=== PATIENT | male | born 1940 | race Caucasian/White ===

== ENCOUNTER 2016-07-18 09:50 | Inpatient (IN) | payer MEDICARE, BC ==
[2016-07-18] MEDS ORDERED: Acetaminophen 500 MG Tab PO ONE (10:41)
[2016-07-18] MEDS ORDERED: Albuterol/Ipratropium 3.0-0.5 MG/3 ML Neb Soln NEB ONE (10:41)
[2016-07-18 11:06] LABS: CHLORIDE,CL 102 mEq/L (98-106); SODIUM,NA 140 mEq/L (136-145)
[2016-07-18] MEDS ORDERED: Sodium Chloride 0.9% 10 ML Syringe FLUSH PRN (11:32)
[2016-07-18] MEDS ORDERED: Docusate Sodium 100 MG Cap PO PRN (11:32)
[2016-07-18] MEDS ORDERED: Acetaminophen 325 MG Tab PO PRN (11:32)
[2016-07-18] MEDS ORDERED: Zolpidem 5 MG Tab PO PRN (11:39)
[2016-07-18] MEDS ORDERED: LORAZEPAM PO PRN (11:39)
[2016-07-18] MEDS ORDERED: Albuterol 8 GM Inhaler INH PRN (11:39)
[2016-07-18] MEDS ORDERED: Albuterol/Ipratropium 3.0-0.5 MG/3 ML Neb Soln NEB PRN (11:39)
[2016-07-18] MEDS ORDERED: Allopurinol 100 MG Tab PO PRN (11:39)
[2016-07-18] MEDS ORDERED: Iopamidol 755 Mg/ML 100 ML Bottle IVPUSH ONE (11:44)
[2016-07-18] MEDS ORDERED: methylPREDNISolone Sodium Succinate 125 MG/2 ML SDV IVPUSH SCH (11:45)
[2016-07-18] MEDS ORDERED: Enoxaparin 30 MG/0.3 ML Syringe SUBCUT SCH (11:45)
[2016-07-18] MEDS ORDERED: Levofloxacin/Dextrose 5%-Water 500 MG in Premix Bag 1 BAG IV SCH (11:45)
--- NOTE | 2016-07-18 11:59 | EDM.PDOC ---
ED HPI GENERAL MEDICAL PROBLEM - General Chief Complaint: General Stated Complaint: FALL Time Seen by Provider: 07/18/16 10:30 Source of Information: Reports: Patient, Family () History Limitations: Reports: No limitations - History of Present Illness INITIAL COMMENTS - FREE TEXT/NARRATIVE: Maxi is a 76 yo male who presents to the ER via [facility] with concerns of a recent fall today. He was going to his vehicle when he became weak and fell down, hitting his nose on the running board. Denies any loss of consciousness. His witnessed it and states she was unable to get him up. He recently underwent a colectomy in the beginning of June and was in swing bed care at our facility for strengthening and conditioning. Admits he had been doing well up until the last few days. Was seen by Dr. Roberts in clinic secondary to bronchiolitis on the and was given 1 gram of Rocephin and 80 mg of Depo Medrol IM. Was sent home with a course of Azithromycin. He states he has been coughing a lot, more clear mucous like drainage. His states he has just been weak and getting weaker. - Related Data Allergies Allergy/AdvReac Type Severity Reaction Status Date / Time No Known Allergies Allergy Verified 07/18/16 10:42 Home Meds: Home Meds Acetaminophen/HYDROcodone [Dickinson 325-5 MG] 1 - 2 tab PO Q4H PRN 08/23/13 [ History] Allopurinol 100 mg PO DAILY PRN 08/23/13 [History] Cyanocobalamin (Vitamin B-12) [Vitamin B-12] 1,000 mcg PO BEDTIME 08/23/13 [ History] Docusate Sodium [Colace] 100 - 200 mg PO TID PRN 08/23/13 [History] Albuterol [Ventolin HFA] 2 puff INH Q4H PRN 09/22/13 [History] Gabapentin 300 mg PO BEDTIME PRN 09/22/13 [History] Vitamin A 10,000 unit PO BEDTIME 09/22/13 [History] Insulin NPH/Insulin Reg,Human [Novolin 70-30] 50 - 80 unit SUBCUT BID 09/23/14 [ History] LORazepam [Ativan] 0.5 - 1 mg PO Q6H PRN 09/23/14 [History] Amiodarone [Cordarone] 200 mg PO DAILY 09/16/15 [History] Apixaban [Eliquis] 5 mg PO BID 09/16/15 [History] Multivitamin [Daily Multiple Vitamin] 1 tab PO DAILY 09/16/15 [History] Albuterol/Ipratropium [DuoNeb 3.0-0.5 MG/3 ML] 3 ml NEB QIDRT PRN 07/05/16 [ History] Aspirin [Ecotrin] 325 mg PO DAILY 07/05/16 [History] Carvedilol 12.5 mg PO BID 07/05/16 [History] Cholecalciferol (Vitamin D3) [Vitamin D3] 2,000 unit PO DAILY 07/05/16 [History] Cinnamon Bark [Cinnamon] 500 mg PO BID 07/05/16 [History] Hydrocodone/Acetaminophen [Hydrocodon-Acetaminophen 5-325] 1 each PO Q6H PRN 02/10 [History] Lisinopril 10 mg PO DAILY 07/05/16 [History] Torsemide [Demadex] 40 mg PO DAILY 07/05/16 [History] Zolpidem Tartrate [Ambien] 10 mg PO BEDTIME PRN 07/05/16 [History] Ascorbic Acid [Vitamin C] 500 mg PO DAILY #30 tablet 07/11/16 [Rx] Magnesium Oxide 500 mg PO DAILY #90 capsule 07/11/16 [Rx] Past Medical History Cardiovascular History: Reports: Cardiomyopathy, Heart Failure, High cholesterol , Hypertension, Pacemaker Respiratory History: Reports: Sleep apnea, SOB, Other (see below) Other Respiratory History: history of bronchiolitis Genitourinary History: Reports: Other (see below) Other Genitourinary History: history of gross hematuria, nocturua Musculoskeletal History: Reports: Arthritis, Gout, Other (see below) Other Musculoskeletal History: history of bursitis, closed fracture of base of 5th metatarsal bone, trochanteric bursitis of left hip, chronic arthralgias of knees and hips Neurological History: Reports: Neuropathy, peripheral Psychiatric History: Reports: Other (see below) Other Psychiatric History: insomnia Endocrine/Metabolic History: Reports: Diabetes, type II Hematologic History: Reports: Other (see below) Other Hematologic History: vitamin D deficiency Oncologic (Cancer) History: Reports: Prostate Dermatologic History: Reports: Other (see below) Other Dermatologic History: history of fungal dermatitis - Past Surgical History GI Surgical History: Reports: Colon, Colonoscopy Male Surgical History: Reports: Other (see below) Other Male Surgeries/Procedures: prostate Musculoskeletal Surgical History: Reports: Knee replacement, Shoulder surgery, Other (see below) Other Musculoskeletal Surgeries/Procedures:: Fusion of back with rods and screws placed Social & Family History - Family History Family Medical History: Noncontributory - Tobacco Use Smoking Status *Q: Never Smoker Years of Tobacco use: 15 Used Tobacco, but Quit: Yes Month Tobacco Last Used: quit 30 yrs ago Second Hand Smoke Exposure: No - Caffeine Use Caffeine Use: Reports: None - Alcohol Use Days Per Week of Alcohol Use: 0 - Recreational Drug Use Recreational Drug Use: No - Living Situation & Occupation Living situation: Reports: Occupation: retired ED ROS GENERAL - Review of Systems Review Of Systems: See Below Constitutional: Reports: fever, chills, weakness, fatigue HEENT: Reports: Sinus problem Respiratory: Reports: shortness of breath, wheezing, cough Cardiovascular: Reports: No symptoms GI/Abdominal: Reports: No symptoms : Reports: no symptoms Skin: Reports: no symptoms Neurological: Reports: difficulty walking Psychiatric: Reports: No symptoms ED EXAM, GENERAL - Physical Exam Exam: See Below Exam Limited By: No limitations General Appearance: alert, mild distress Eye Exam: bilateral eye: normal inspection, PERRL Ears: normal external exam, normal canal, normal TMs, hearing loss Nose: normal inspection, other (dried blood from abrasion to bridge of nose. superficial. ) Throat/Mouth: Normal inspection, Normal lips, Normal oropharynx, Normal voice, No airway compromise Head: atraumatic, normocephalic Neck: normal inspection, supple Respiratory/Chest: decreased breath sounds, rhonchi, wheezing, prolonged expiration. No: accessory muscle use, retractions Cardiovascular: regular rate, rhythm, no rub. No: no edema GI/Abdominal: normal bowel sounds, soft, non tender, no organomegaly, no distention, other (obese, incision well healed. ) Extremities: pedal edema (2+ bilaterally) Neurological: alert, oriented, normal cognition, no motor/sensory deficits Psychiatric: normal affect, normal mood Skin Exam: Dry, Intact, Normal color, Increased warmth Course - Vital Signs Last Recorded V/S: Last Vital Signs Temp 101.4 F H 07/18/16 10:55 Pulse 72 07/18/16 10:10 Resp 18 02/22/17 10:10 BP 112/70 07/18/16 10:10 Pulse Ox 94 L 07/18/16 10:10 - Orders/Labs/Meds Orders: Active Orders 24 hr Category Date Time Status Patient Status [ADT] Routine ADT 07/18/16 11:32 Active Oxygen Therapy [RC] PRN Care 07/18/16 11:32 Active Peripheral IV Care [RC] . DIRECTED Care 07/18/16 11:34 Active Pulse Oximetry [RC] PRN Care 07/18/16 11:33 Active Up With Assistance [RC] ASDIRECTED Care 07/18/16 11:32 Active VTE/DVT Education [RC] PER UNIT ROUTINE Care 07/18/16 11:32 Active Vital Signs [RC] Q4H Care 07/18/16 11:32 Active Respiratory Care Assess and Treatment [CONS] Routine Cons 07/18/16 11:32 Active Consistent Carbohydrate Diet [DIET] Diet 07/18/16 Lunch Active Ang Chest [CT] Stat Exams 07/18/16 11:32 Ordered Chest 2V [CR] Stat Exams 07/18/16 10:32 Taken BASIC METABOLIC PANEL,BMP [CHEM] AM Lab 07/19/16 05:11 Ordered BASIC METABOLIC PANEL,BMP [CHEM] AM Lab 07/20/16 05:11 Ordered BASIC METABOLIC PANEL,BMP [CHEM] AM Lab 07/21/16 05:11 Ordered C-REACTIVE PROTEIN [CHEM] AM Lab 07/19/16 05:11 Ordered C-REACTIVE PROTEIN [CHEM] AM Lab 07/20/16 05:11 Ordered C-REACTIVE PROTEIN [CHEM] AM Lab 07/21/16 05:11 Ordered CBC WITH AUTO DIFF [HEME] AM Lab 07/19/16 05:11 Ordered CBC WITH AUTO DIFF [HEME] AM Lab 07/20/16 05:11 Ordered CBC WITH AUTO DIFF [HEME] AM Lab 07/21/16 05:11 Ordered CULTURE BLOOD [BC] Stat Lab 07/18/16 10:33 Ordered CULTURE BLOOD [BC] Stat Lab 07/18/16 10:33 Ordered CULTURE SPUTUM + SMEAR [RM] Stat Lab 07/18/16 10:32 Ordered FOLATE [REF] Stat Lab 07/18/16 11:32 Ordered IRON PANEL IRON/TRANSFERR/FERR [REF] Stat Lab 07/18/16 11:32 Ordered OCCULT BLOOD SCREEN [OP] Routine Lab 07/18/16 11:32 Uncollected UA W/MICROSCOPIC [URIN] Stat Lab 07/18/16 10:07 Uncollected VITAMIN B12 [CHEM] Stat Lab 07/18/16 11:32 Ordered Acetaminophen [Tylenol] Med 07/18/16 11:32 Active 650 mg PO Q4H PRN Acetaminophen/HYDROcodone [Dickinson 325-5 MG] Med 07/18/16 11:39 Active 1 - 2 tab PO Q4H PRN Albuterol [Ventolin HFA] Med 07/18/16 11:39 Active 0 gm INH Q4H PRN Albuterol/Ipratropium [DuoNeb 3.0-0.5 MG/3 ML] Med 07/18/16 11:39 Active 3 ml NEB QIDRT PRN Allopurinol [Zyloprim] Med 07/18/16 11:39 Active 100 mg PO DAILY PRN Amiodarone [Cordarone] Med 07/19/16 08:00 Active 200 mg PO DAILY Apixaban [Eliquis] Med 07/18/16 20:00 Active 5 mg PO BID Ascorbic Acid [Vitamin C] Med 07/19/16 08:00 Active 500 mg PO DAILY Aspirin [Ecotrin] Med 07/19/16 08:00 Active 325 mg PO DAILY Carvedilol [Coreg] Med 07/18/16 20:00 Active 12.5 mg PO BID Cyanocobalamin (Vitamin B12) [Vitamin B12] Med 07/18/16 20:00 Active 1,000 mcg PO BEDTIME Docusate Sodium [Colace] Med 07/18/16 11:32 Active 100 mg PO BID PRN Enoxaparin [Lovenox] Med 07/18/16 11:45 Active 30 mg SUBCUT Q24H Gabapentin [Neurontin] Med 07/18/16 11:39 Active 300 mg PO BEDTIME PRN Insulin NPH/Insulin Reg,Human [Novolin 70-30] Med 07/18/16 20:00 Active 50 - 80 unit SUBCUT BID LORazepam [Ativan] Med 07/18/16 11:39 Active 0.5 - 1 mg PO Q6H PRN Levofloxacin/Dextrose 5%-Water [Levaquin in D5W 500 MG/ Med 07/18/16 11:45 Active 100 ML] 500 mg Premix Bag 1 bag IV Q24H Lisinopril [Prinivil] Med 07/19/16 08:00 Active 10 mg PO DAILY Magnesium Oxide [Magnesium Oxide] Med 07/19/16 08:00 Active 500 mg PO DAILY Oseltamivir [Tamiflu] Med 07/18/16 20:00 Active 75 mg PO BID Sodium Chloride 0.9% [Saline Flush] Med 07/18/16 11:32 Active 10 ml FLUSH ASDIRECTED PRN Torsemide [Demadex] Med 07/19/16 08:00 Active 40 mg PO DAILY Zolpidem [Ambien] Med 07/18/16 11:39 Active 10 mg PO BEDTIME PRN methylPREDNISolone Sod Succ [Solu-MEDROL] Med 07/18/16 11:45 Active 62.5 mg IVPUSH Q24H Blood Culture x2 Reflex Set [OM.PC] Stat Oth 07/18/16 10:32 Ordered Peripheral IV Insertion Adult [OM.PC] Routine Oth 07/18/16 11:32 Ordered Resuscitation Status Routine Resus Stat 07/18/16 11:32 Ordered Medication Orders Acetaminophen (Tylenol) 650 mg PO Q4H PRN PRN Reason: Pain (Mild 1-3)/fever Acetaminophen/Hydrocodone Bitart (Dickinson 325-5 Mg) 1 - 2 tab PO Q4H PRN PRN Reason: Pain Albuterol (Ventolin Hfa) 0 gm INH Q4H PRN PRN Reason: Dyspnea Albuterol/Ipratropium (Duoneb 3.0-0.5 Mg/3 Ml) 3 ml NEB QIDRT PRN PRN Reason: Shortness of Breath Allopurinol (Zyloprim) 100 mg PO DAILY PRN PRN Reason: Other Amiodarone HCl (Cordarone) 200 mg PO DAILY [facility] Ascorbic Acid (Vitamin C) 500 mg PO DAILY [facility] Aspirin (Ecotrin) 325 mg PO DAILY [facility] Carvedilol (Coreg) 12.5 mg PO BID [facility] Cyanocobalamin (Vitamin B12) 1,000 mcg PO BEDTIME TOM Docusate Sodium (Colace) 100 mg PO BID PRN PRN Reason: Constipation Enoxaparin Sodium (Lovenox) 30 mg SUBCUT Q24H TOM Gabapentin (Neurontin) 300 mg PO BEDTIME PRN PRN Reason: Nerve pain Levofloxacin/Dextrose 500 mg/ (Premix) 100 mls @ 100 mls/hr IV Q24H [facility]OM Lisinopril (Prinivil) 10 mg PO DAILY [facility] Methylprednisolone Sodium Succinate (Solu-Medrol) 62.5 mg IVPUSH Q24H [facility] Non-Formulary Medication (Apixaban [Eliquis]) 5 mg PO BID TOM Non-Formulary Medication (Insulin Nph/Insulin Reg,Human [Novolin 70-30]) 50 - 80 unit SUBCUT BID T[facility] Non-Formulary Medication (Lorazepam [Ativan]) 0.5 - 1 mg PO Q6H PRN PRN Reason: Anxiety Non-Formulary Medication (Magnesium Oxide [Magnesium Oxide]) 500 mg PO DAILY [facility] Oseltamivir Phosphate (Tamiflu) 75 mg PO BID TOM Sodium Chloride (Saline Flush) 10 ml FLUSH ASDIRECTED PRN PRN Reason: Keep Vein Open Torsemide (Demadex) 40 mg PO DAILY [facility] Zolpidem Tartrate (Ambien) 10 mg PO BEDTIME PRN PRN Reason: Insomnia Labs: Laboratory Tests 07/18/16 07/18/16 07/18/16 Range/Units 10:07 10:32 10:35 WBC 9.1 (5.0-10.0) 10^3/uL RBC 2.99 L (4.50-6.00) 10^6/uL Hgb 9.4 L (14.0-18.0) g/dL Hct 30.8 L (40.0-54.0) % MCV 103.0 H (82.0-94.0) fL MCH 31.4 (27.0-32.0) pg MCHC 30.5 L (33.0-38.0) g/dL RDW Coeff of Sheron 15.1 H (11.0-15.0) % Plt Count 178 (150-400) 10^3/uL Neut % (Auto) 86.3 H (35-85) % Lymph % (Auto) 5.6 L (10-55) % [place] % (Auto) 7.6 (0-16) % Eos % (Auto) 0.3 (0-5) % Baso % (Auto) 0.2 (0-3) % Neut # 7.87 H (1.80-7.00) 10^3/uL Lymph # 0.51 L (1.00-4.80) 10^3/uL [place] # 0.69 (0.00-0.80) 10^3/uL Eos # 0.03 (0.00-0.45) 10^3/uL Baso # 0.02 10^3/uL D-Dimer, Quantitative 1.35 H (0.00-0.50) Sodium 140 (136-145) mEq/L Potassium 4.1 (3.5-5.0) mEq/L Chloride 102 (98-106) mEq/L Carbon Dioxide 28 (21-32) mmol/L BUN 15 (7-18) mg/dL Creatinine 1.4 H (0.7-1.3) mg/dL Est Cr Clr Drug Dosing TNP Estimated GFR (MDRD) 49 L (>=60) mL/min Glucose 206 H D (75-99) mg/dL Calcium 8.3 L (8.4-10.1) mg/dL Magnesium 2.2 (1.8-2.4) mg/dL Total Bilirubin 0.5 (0.0-1.0) mg/dL AST 20 (15-37) U/L ALT 18 (12-78) U/L Alkaline Phosphatase 40 L (46-116) U/L C-Reactive Protein 9.7 H (0.2-0.8) mg/dL [id number] Pept 1263 H (0-1000) pg/nL Total Protein 6.2 L (6.4-8.2) g/dL Albumin 2.8 L (3.4-5.0) g/dL Meds: Medications Generic Name Dose Route Start Last Admin Trade Name Freq PRN Reason Stop Dose Admin Acetaminophen 650 mg 07/18/16 11:32 Tylenol PO Q4H PRN Pain (Mild 1-3)/fever Acetaminophen/Hydrocodone Bitart 1 - 2 tab 07/18/16 11:39 Dickinson 325-5 Mg PO Q4H PRN Pain Albuterol 0 gm 07/18/16 11:39 Ventolin Hfa INH Q4H PRN Dyspnea Albuterol/Ipratropium 3 ml 07/18/16 11:39 Duoneb 3.0-0.5 Mg/3 Ml NEB QIDRT PRN Shortness of Breath Allopurinol 100 mg 07/18/16 11:39 Zyloprim PO DAILY PRN Other Amiodarone HCl 200 mg 07/19/16 08:00 Cordarone PO DAILY [facility] Ascorbic Acid 500 mg 07/19/16 08:00 Vitamin C PO DAILY [facility] Aspirin 325 mg 07/19/16 08:00 Ecotrin PO DAILY [facility] Carvedilol 12.5 mg 07/18/16 20:00 Coreg PO BID [facility] Cyanocobalamin 1,000 mcg 07/18/16 20:00 Vitamin B12 PO BEDTIME [facility] Docusate Sodium 100 mg 07/18/16 11:32 Colace PO BID PRN Constipation Enoxaparin Sodium 30 mg 07/18/16 11:45 Lovenox SUBCUT Q24H [facility] Gabapentin 300 mg 07/18/16 11:39 Neurontin PO BEDTIME PRN Nerve pain Levofloxacin/Dextrose 500 mg/ 100 mls @ 100 mls/hr 07/18/16 11:45 Premix IV Q24H [facility] Lisinopril 10 mg 07/19/16 08:00 Prinivil PO DAILY [facility] Methylprednisolone Sodium Succinate 62.5 mg 07/18/16 11:45 Solu-Medrol IVPUSH Q24H [facility] Non-Formulary Medication 5 mg 07/18/16 20:00 Apixaban [Eliquis] PO BID [facility] Non-Formulary Medication 50 - 80 unit 07/18/16 20:00 Insulin Nph/Insulin Reg,Human [Novolin 70-30] SUBCUT BID [facility] Non-Formulary Medication 0.5 - 1 mg 07/18/16 11:39 Lorazepam [Ativan] PO Q6H PRN Anxiety Non-Formulary Medication 500 mg 07/19/16 08:00 Magnesium Oxide [Magnesium Oxide] PO DAILY [facility] Oseltamivir Phosphate 75 mg 07/18/16 20:00 Tamiflu PO BID [facility] Sodium Chloride 10 ml 07/18/16 11:32 Saline Flush FLUSH ASDIRECTED PRN Keep Vein Open Torsemide 40 mg 07/19/16 08:00 Demadex PO DAILY [facility] Zolpidem Tartrate 10 mg 07/18/16 11:39 Ambien PO BEDTIME PRN Insomnia Discontinued Medications Generic Name Dose Route Start Last Admin Trade Name Freq PRN Reason Stop Dose Admin Acetaminophen 1,000 mg 07/18/16 10:41 07/18/16 10:55 Tylenol Extra Strength PO 07/18/16 10:42 1,000 mg ONETIME ONE Administration Albuterol/Ipratropium 3 ml 07/18/16 10:41 07/18/16 10:58 Duoneb 3.0-0.5 Mg/3 Ml NEB 07/18/16 10:42 3 ml ONETIME ONE Administration Iopamidol 100 ml 07/18/16 11:44 Isovue-370 (76%) IVPUSH 07/18/16 11:45 ONETIME ONE Departure - Departure Time of Disposition: 11:15 Disposition: Admitted As Inpatient 67 Clinical Impression: Influenza A Anemia Qualifiers: Anemia type: unspecified type Qualified Code(s): D64.9 - Anemia, unspecified Forms: ED Department Discharge - Problem List & Annotations (1) Anemia SNOMED Code(s): 449737320 Code(s): D64.9 - ANEMIA, UNSPECIFIED Status: Acute Current Visit: Yes Qualifiers: Anemia type: unspecified type Qualified Code(s): D64.9 - Anemia, unspecified (2) Influenza A SNOMED Code(s): 896662085 Code(s): J10.1 - FLU DUE TO OTH IDENT INFLUENZA VIRUS W OTH RESP MANIFEST Status: Acute Current Visit: Yes - Problem List Review Problem List Initiated/Reviewed/Updated: Yes - My Orders Last 24 Hours: My Active Orders 07/18/16 10:07 UA W/MICROSCOPIC [URIN] Stat 07/18/16 10:32 Chest 2V [CR] Stat CULTURE SPUTUM + SMEAR [RM] Stat Blood Culture x2 Reflex Set [OM.PC] Stat 07/18/16 10:33 CULTURE BLOOD [BC] Stat CULTURE BLOOD [BC] Stat 07/18/16 11:32 Patient Status [ADT] Routine Oxygen Therapy [RC] PRN Up With Assistance [RC] ASDIRECTED VTE/DVT Education [RC] PER UNIT ROUTINE Vital Signs [RC] Q4H Respiratory Care Assess and Treatment [CONS] Routine Ang Chest [CT] Stat FOLATE [REF] Stat IRON PANEL IRON/TRANSFERR/FERR [REF] Stat OCCULT BLOOD SCREEN [OP] Routine VITAMIN B12 [CHEM] Stat Acetaminophen [Tylenol] 650 mg PO Q4H PRN Docusate Sodium [Colace] 100 mg PO BID PRN Sodium Chloride 0.9% [Saline Flush] 10 ml FLUSH ASDIRECTED PRN Peripheral IV Insertion Adult [OM.PC] Routine Resuscitation Status Routine 07/18/16 11:33 Pulse Oximetry [RC] PRN 07/18/16 11:34 Peripheral IV Care [RC] . DIRECTED 07/18/16 11:39 Acetaminophen/HYDROcodone [Dickinson 325-5 MG] 1 - 2 tab PO Q4H PRN Albuterol [Ventolin HFA] 0 gm INH Q4H PRN Albuterol/Ipratropium [DuoNeb 3.0-0.5 MG/3 ML] 3 ml NEB QIDRT PRN Allopurinol [Zyloprim] 100 mg PO DAILY PRN Gabapentin [Neurontin] 300 mg PO BEDTIME PRN LORazepam [Ativan] 0.5 - 1 mg PO Q6H PRN Zolpidem [Ambien] 10 mg PO BEDTIME PRN 07/18/16 11:45 Enoxaparin [Lovenox] 30 mg SUBCUT Q24H Levofloxacin/Dextrose 5%-Water [Levaquin in D5W 500 MG/100 ML] 500 mg Premix Bag 1 bag IV Q24H methylPREDNISolone Sod Succ [Solu-MEDROL] 62.5 mg IVPUSH Q24H 07/18/16 20:00 Apixaban [Eliquis] 5 mg PO BID Carvedilol [Coreg] 12.5 mg PO BID Cyanocobalamin (Vitamin B12) [Vitamin B12] 1,000 mcg PO BEDTIME Insulin NPH/Insulin Reg,Human [Novolin 70-30] 50 - 80 unit SUBCUT BID Oseltamivir [Tamiflu] 75 mg PO BID 07/18/16 Lunch Consistent Carbohydrate Diet [DIET] 07/19/16 05:11 BASIC METABOLIC PANEL,BMP [CHEM] AM C-REACTIVE PROTEIN [CHEM] AM CBC WITH AUTO DIFF [HEME] AM 07/19/16 08:00 Amiodarone [Cordarone] 200 mg PO DAILY Ascorbic Acid [Vitamin C] 500 mg PO DAILY Aspirin [Ecotrin] 325 mg PO DAILY Lisinopril [Prinivil] 10 mg PO DAILY Magnesium Oxide [Magnesium Oxide] 500 mg PO DAILY Torsemide [Demadex] 40 mg PO DAILY 07/20/16 05:11 BASIC METABOLIC PANEL,BMP [CHEM] AM C-REACTIVE PROTEIN [CHEM] AM CBC WITH AUTO DIFF [HEME] AM 07/21/16 05:11 BASIC METABOLIC PANEL,BMP [CHEM] AM C-REACTIVE PROTEIN [CHEM] AM CBC WITH AUTO DIFF [HEME] AM - Assessment/Plan Admission H&P: Please use this note as an admission H&P Last 24 Hours: My Active Orders 07/18/16 10:07 UA W/MICROSCOPIC [URIN] Stat 07/18/16 10:32 Chest 2V [CR] Stat CULTURE SPUTUM + SMEAR [RM] Stat Blood Culture x2 Reflex Set [OM.PC] Stat 07/18/16 10:33 CULTURE BLOOD [BC] Stat CULTURE BLOOD [BC] Stat 07/18/16 11:32 Patient Status [ADT] Routine Oxygen Therapy [RC] PRN Up With Assistance [RC] ASDIRECTED VTE/DVT Education [RC] PER UNIT ROUTINE Vital Signs [RC] Q4H Respiratory Care Assess and Treatment [CONS] Routine Ang Chest [CT] Stat FOLATE [REF] Stat IRON PANEL IRON/TRANSFERR/FERR [REF] Stat OCCULT BLOOD SCREEN [OP] Routine VITAMIN B12 [CHEM] Stat Acetaminophen [Tylenol] 650 mg PO Q4H PRN Docusate Sodium [Colace] 100 mg PO BID PRN Sodium Chloride 0.9% [Saline Flush] 10 ml FLUSH ASDIRECTED PRN Peripheral IV Insertion Adult [OM.PC] Routine Resuscitation Status Routine 07/18/16 11:33 Pulse Oximetry [RC] PRN 07/18/16 11:34 Peripheral IV Care [RC] . DIRECTED 07/18/16 11:39 Acetaminophen/HYDROcodone [Dickinson 325-5 MG] 1 - 2 tab PO Q4H PRN Albuterol [Ventolin HFA] 0 gm INH Q4H PRN Albuterol/Ipratropium [DuoNeb 3.0-0.5 MG/3 ML] 3 ml NEB QIDRT PRN Allopurinol [Zyloprim] 100 mg PO DAILY PRN Gabapentin [Neurontin] 300 mg PO BEDTIME PRN LORazepam [Ativan] 0.5 - 1 mg PO Q6H PRN Zolpidem [Ambien] 10 mg PO BEDTIME PRN 07/18/16 11:45 Enoxaparin [Lovenox] 30 mg SUBCUT Q24H Levofloxacin/Dextrose 5%-Water [Levaquin in D5W 500 MG/100 ML] 500 mg Premix Bag 1 bag IV Q24H methylPREDNISolone Sod Succ [Solu-MEDROL] 62.5 mg IVPUSH Q24H 07/18/16 20:00 Apixaban [Eliquis] 5 mg PO BID Carvedilol [Coreg] 12.5 mg PO BID Cyanocobalamin (Vitamin B12) [Vitamin B12] 1,000 mcg PO BEDTIME Insulin NPH/Insulin Reg,Human [Novolin 70-30] 50 - 80 unit SUBCUT BID Oseltamivir [Tamiflu] 75 mg PO BID 07/18/16 Lunch Consistent Carbohydrate Diet [DIET] 07/19/16 05:11 BASIC METABOLIC PANEL,BMP [CHEM] AM C-REACTIVE PROTEIN [CHEM] AM CBC WITH AUTO DIFF [HEME] AM 07/19/16 08:00 Amiodarone [Cordarone] 200 mg PO DAILY Ascorbic Acid [Vitamin C] 500 mg PO DAILY Aspirin [Ecotrin] 325 mg PO DAILY Lisinopril [Prinivil] 10 mg PO DAILY Magnesium Oxide [Magnesium Oxide] 500 mg PO DAILY Torsemide [Demadex] 40 mg PO DAILY 07/20/16 05:11 BASIC METABOLIC PANEL,BMP [CHEM] AM C-REACTIVE PROTEIN [CHEM] AM CBC WITH AUTO DIFF [HEME] AM 07/21/16 05:11 BASIC METABOLIC PANEL,BMP [CHEM] AM C-REACTIVE PROTEIN [CHEM] AM CBC WITH AUTO DIFF [HEME] AM Plan: Discussed findings with Maxi, his and consulted with Dr. Roberts. Will admit to Dr. Roberts's services under acute care. Further evaluation and imaging to be completed. Dr. Roberts advised IV Levaquin, SoluMedrol and initiating Tamiflu. Will work up cause of anemia as well with further laboratory work. Dr. Roberts agreed with admission. verbalized understanding and was in agreement as well.
[2016-07-18] MEDS ORDERED: LORazepam 0.5 MG Tab PO PRN (12:19)
[2016-07-18] MEDS: methylPREDNISolone Sodium Succinate 125 MG/2 ML SDV IVPUSH SCH (12:38)
[2016-07-18] MEDS: Levofloxacin/Dextrose 5%-Water 500 MG in Premix Bag 1 BAG IV SCH (12:38)
[2016-07-18] MEDS: Oseltamivir 75 MG Cap PO SCH ×2 (12:39→20:17)
[2016-07-18] MEDS: Insuln Aspart Prot/Insulin Aspart 100 Units/ML 3 ML FlexPen SUBCUT SCH (18:01)
[2016-07-18] MEDS ORDERED: INSULIN ISOPHANE SUBCUT SCH (20:00)
[2016-07-18] MEDS ORDERED: [UNRECOGNIZED DRUG - OTHER] SUBCUT SCH (20:00)
[2016-07-18] MEDS ORDERED: INSULIN REGULAR SUBCUT SCH (20:00)
[2016-07-18] MEDS ORDERED: Non-Formulary Medication 1 Each (Apixaban [Eliquis] 5 MG) PO SCH (20:00)
[2016-07-18] MEDS ORDERED: Oseltamivir 75 MG Cap PO SCH (20:00)
[2016-07-18] MEDS: Enoxaparin 40 MG/0.4 ML Syringe SUBCUT SCH (20:16)
[2016-07-18] MEDS: Carvedilol 12.5 MG Tab PO SCH (20:17)
[2016-07-18] MEDS: Cyanocobalamin (Vitamin B12) 1,000 MCG Tab PO SCH (20:17)
[2016-07-18] MEDS: Sodium Chloride 0.45% 1,000 ML IV SCH (20:17)
[2016-07-18] MEDS: Acetaminophen/HYDROcodone 325-5 MG Tab PO PRN (23:13)
[2016-07-18] MEDS: Gabapentin 300 MG Cap PO PRN (23:13)
[2016-07-19] MEDS: Sodium Chloride 0.45% 1,000 ML IV SCH (06:24)
[2016-07-19 07:33] LABS: CHLORIDE,CL 102 mEq/L (98-106); SODIUM,NA 140 mEq/L (136-145)
[2016-07-19] MEDS: Aspirin 325 MG Tab.EC PO SCH (07:37)
[2016-07-19] MEDS: Ascorbic Acid 500 MG Tab PO SCH (07:37)
[2016-07-19] MEDS: Oseltamivir 75 MG Cap PO SCH ×2 (07:38→19:45)
[2016-07-19] MEDS: Torsemide 20 MG Tab PO SCH (07:39)
[2016-07-19] MEDS: Amiodarone 200 MG Tab PO SCH (07:41)
[2016-07-19] MEDS: Carvedilol 12.5 MG Tab PO SCH ×2 (07:41→19:44)
[2016-07-19] MEDS: Lisinopril 10 MG Tab PO SCH (07:42)
[2016-07-19] MEDS: methylPREDNISolone Sodium Succinate 125 MG/2 ML SDV IVPUSH SCH (07:44)
[2016-07-19] MEDS: Levofloxacin/Dextrose 5%-Water 500 MG in Premix Bag 1 BAG IV SCH (07:49)
[2016-07-19] MEDS: Insuln Aspart Prot/Insulin Aspart 100 Units/ML 3 ML FlexPen SUBCUT SCH ×2 (08:45→17:31)
--- NOTE | 2016-07-19 14:47 | PN ---
DATE: 07/19/2016 S: Maxi Bailey is in with influenza. He says he feels better today. O: NECK: Supple. CHEST: Little wheezing. CARDIAC: Sounds are good. Minimal edema. ASSESSMENT: INFLUENZA, MILD CONGESTIVE HEART FAILURE. P: Continue present therapy. JUDAH/JANAK /[id number]
[2016-07-19] MEDS: Insulin Aspart 100 Units/ML 3 ML Pen SUBCUT SCH ×2 (17:28→21:40)
[2016-07-19] MEDS: Cyanocobalamin (Vitamin B12) 1,000 MCG Tab PO SCH (19:45)
[2016-07-19] MEDS: Enoxaparin 40 MG/0.4 ML Syringe SUBCUT SCH (19:45)
[2016-07-20] MEDS: Acetaminophen/HYDROcodone 325-5 MG Tab PO PRN (00:24)
[2016-07-20] MEDS: Gabapentin 300 MG Cap PO PRN (00:25)
[2016-07-20 07:47] LABS: CHLORIDE,CL 104 mEq/L (98-106); SODIUM,NA 141 mEq/L (136-145)
[2016-07-20] MEDS: Levofloxacin/Dextrose 5%-Water 500 MG in Premix Bag 1 BAG IV SCH (07:53)
[2016-07-20] MEDS: Aspirin 325 MG Tab.EC PO SCH (07:54)
[2016-07-20] MEDS: Oseltamivir 75 MG Cap PO SCH ×2 (07:54→19:30)
[2016-07-20] MEDS: Ascorbic Acid 500 MG Tab PO SCH (07:54)
[2016-07-20] MEDS: methylPREDNISolone Sodium Succinate 125 MG/2 ML SDV IVPUSH SCH (07:55)
[2016-07-20] MEDS: Lisinopril 10 MG Tab PO SCH (07:58)
[2016-07-20] MEDS: Amiodarone 200 MG Tab PO SCH (07:58)
[2016-07-20] MEDS: Carvedilol 12.5 MG Tab PO SCH ×2 (07:58→19:30)
[2016-07-20] MEDS: Torsemide 20 MG Tab PO SCH (07:58)
[2016-07-20] MEDS: Insuln Aspart Prot/Insulin Aspart 100 Units/ML 3 ML FlexPen SUBCUT SCH ×2 (08:07→17:21)
[2016-07-20] MEDS: Insulin Aspart 100 Units/ML 3 ML Pen SUBCUT SCH ×4 (08:07→20:10)
[2016-07-20] MEDS ORDERED: Insuln Aspart Prot/Insulin Aspart 100 Units/ML 3 ML FlexPen SUBCUT ONE (12:37)
--- NOTE | 2016-07-20 13:35 | PCM.PN ---
- General Info Date of Service: 07/20/16 Admission Dx/Problem (Free Text): Influenza A Functional Status: Reports: pain controlled, tolerating diet, ambulating - Review of Systems General: Reports: weakness, fatigue. Denies: fever, malaise HEENT: Denies: ear pain, sinus congestion, visual changes Pulmonary: Reports: shortness of breath, cough, sputum, wheezing Cardiovascular: Reports: edema. Denies: chest pain, lightheadedness Gastrointestinal: Denies: Abdominal pain, Nausea, Vomiting Genitourinary: Reports: no symptoms Musculoskeletal: Reports: back pain Skin: Reports: no symptoms Neurological: Reports: no symptoms - Patient Data Vitals - most recent: Last Vital Signs Temp 96.8 F 07/20/16 12:00 Pulse 66 07/20/16 12:00 Resp 16 07/20/16 12:00 BP 154/73 H 07/20/16 12:00 Pulse Ox 97 07/20/16 12:00 Weight - most recent: 319 lb I&O - last 24 hours: Intake & Output 07/19/16 07/20/16 07/20/16 22:59 06:59 14:59 Intake Total 640 500 400 Output Total 2586 197 0921 Balance -910 -300 -1050 Lab Results last 24 hrs: Laboratory Results - last 24 hr 07/19/16 07/19/16 07/20/16 Range/Units 17:14 20:31 07:05 WBC 9.4 (5.0-10.0) 10^3/uL RBC 3.09 L (4.50-6.00) 10^6/uL Hgb 9.8 L (14.0-18.0) g/dL Hct 31.4 L (40.0-54.0) % MCV 101.6 H (82.0-94.0) fL MCH 31.7 (27.0-32.0) pg MCHC 31.2 L (33.0-38.0) g/dL RDW Coeff of Sheron 14.3 (11.0-15.0) % Plt Count 188 (150-400) 10^3/uL Neut % (Auto) 82.0 (35-85) % Lymph % (Auto) 10.8 (10-55) % [place] % (Auto) 7.1 (0-16) % Eos % (Auto) 0 (0-5) % Baso % (Auto) 0.1 (0-3) % Neut # 7.69 H (1.80-7.00) 10^3/uL Lymph # 1.01 (1.00-4.80) 10^3/uL [place] # 0.67 (0.00-0.80) 10^3/uL Eos # 0.00 (0.00-0.45) 10^3/uL Baso # 0.01 10^3/uL Sodium (136-145) mEq/L Potassium (3.5-5.0) mEq/L Chloride (98-106) mEq/L Carbon Dioxide (21-32) mmol/L BUN (7-18) mg/dL Creatinine (0.7-1.3) mg/dL Est Cr Clr Drug Dosing Estimated GFR (MDRD) (>=60) mL/min Glucose (75-99) mg/dL POC Glucose 262 H 345 H (75-105) mg/dl Calcium (8.4-10.1) mg/dL C-Reactive Protein (0.2-0.8) mg/dL 07/20/16 07/20/16 Range/Units 07:05 07:51 WBC (5.0-10.0) 10^3/uL RBC (4.50-6.00) 10^6/uL Hgb (14.0-18.0) g/dL Hct (40.0-54.0) % MCV (82.0-94.0) fL MCH (27.0-32.0) pg MCHC (33.0-38.0) g/dL RDW Coeff of [place]on (11.0-15.0) % Plt Count (150-400) 10^3/uL Neut % (Auto) (35-85) % Lymph % (Auto) (10-55) % [place] % (Auto) (0-16) % Eos % (Auto) (0-5) % Baso % (Auto) (0-3) % Neut # (1.80-7.00) 10^3/uL Lymph # (1.00-4.80) 10^3/uL [place] # (0.00-0.80) 10^3/uL Eos # (0.00-0.45) 10^3/uL Baso # 10^3/uL Sodium 141 (136-145) mEq/L Potassium 4.2 (3.5-5.0) mEq/L Chloride 104 (98-106) mEq/L Carbon Dioxide 31 (21-32) mmol/L BUN 24 H (7-18) mg/dL Creatinine 1.2 (0.7-1.3) mg/dL Est Cr Clr Drug Dosing TNP Estimated GFR (MDRD) 59 L (>=60) mL/min Glucose 197 H D (75-99) mg/dL POC Glucose 185 H (75-105) mg/dl Calcium 8.3 L (8.4-10.1) mg/dL C-Reactive Protein 6.0 H (0.2-0.8) mg/dL Med Orders - Current: Current Medications Acetaminophen (Tylenol) 650 mg PO Q4H PRN PRN Reason: Pain (Mild 1-3)/fever Acetaminophen/Hydrocodone Bitart ([place] 325-5 Mg) 1 - 2 tab PO Q4H PRN PRN Reason: Pain Last Admin: 07/20/16 00:24 Dose: 1 tab Albuterol (Ventolin Hfa) 0 gm INH Q4H PRN PRN Reason: Dyspnea Albuterol/Ipratropium (Duoneb 3.0-0.5 Mg/3 Ml) 3 ml NEB QIDRT PRN PRN Reason: Shortness of Breath Albuterol/Ipratropium (Duoneb 3.0-0.5 Mg/3 Ml) 3 ml NEB QIDRT TOM Allopurinol (Zyloprim) 100 mg PO DAILY PRN PRN Reason: Other Amiodarone HCl (Cordarone) 200 mg PO DAILY [facility] Last Admin: 07/20/16 07:58 Dose: 200 mg Ascorbic Acid (Vitamin C) 500 mg PO DAILY [facility] Last Admin: 07/20/16 07:54 Dose: 500 mg Aspirin (Ecotrin) 325 mg PO DAILY [facility] Last Admin: 07/20/16 07:54 Dose: 325 mg Carvedilol (Coreg) 12.5 mg PO BID [facility] Last Admin: 07/20/16 07:58 Dose: 12.5 mg Cyanocobalamin (Vitamin B12) 1,000 mcg PO BEDTIME [facility] Last Admin: 07/19/16 19:45 Dose: 1,000 mcg Docusate Sodium (Colace) 100 mg PO BID PRN PRN Reason: Constipation Enoxaparin Sodium (Lovenox) 40 mg SUBCUT Q24H [facility] Last Admin: 07/19/16 19:45 Dose: 40 mg Gabapentin (Neurontin) 300 mg PO BEDTIME PRN PRN Reason: Nerve pain Last Admin: 07/20/16 00:25 Dose: 300 mg Levofloxacin/Dextrose 500 mg/ (Premix) 100 mls @ 100 mls/hr IV Q24H [facility] Last Admin: 07/20/16 07:53 Dose: 100 mls/hr Insulin Aspart (Novolog Mix 70-30) 50 - 80 unit SUBCUT BIDMEALS [facility] Last Admin: 07/20/16 08:07 Dose: 30 units Insulin Aspart (Novolog) 0 unit SUBCUT WITHMEALSANDBED [facility] PRN Reason: Protocol Last Admin: 07/20/16 11:52 Dose: 4 units Lisinopril (Prinivil) 10 mg PO DAILY [facility] Last Admin: 07/20/16 07:58 Dose: 10 mg Lorazepam (Ativan) 0 mg PO Q6H PRN PRN Reason: Anxiety Magnesium Oxide (Magnesium Oxide) 500 mg PO DAILY [facility] Last Admin: 07/20/16 07:54 Dose: 500 mg Methylprednisolone Sodium Succinate (Solu-Medrol) 62.5 mg IVPUSH Q24H [facility] Last Admin: 07/20/16 07:55 Dose: 62.5 mg Oseltamivir Phosphate (Tamiflu) 75 mg PO BID [facility] Last Admin: 07/20/16 07:54 Dose: 75 mg Sodium Chloride (Saline Flush) 10 ml FLUSH ASDIRECTED PRN PRN Reason: Keep Vein Open Torsemide (Demadex) 40 mg PO DAILY [facility] Last Admin: 07/20/16 07:58 Dose: 40 mg Zolpidem Tartrate (Ambien) 10 mg PO BEDTIME PRN PRN Reason: Insomnia Discontinued Medications Acetaminophen (Tylenol Extra Strength) 1,000 mg PO ONETIME ONE Stop: 07/18/16 10:42 Last Admin: 07/18/16 10:55 Dose: 1,000 mg Albuterol/Ipratropium (Duoneb 3.0-0.5 Mg/3 Ml) 3 ml NEB ONETIME ONE Stop: 07/18/16 10:42 Last Admin: 07/18/16 10:58 Dose: 3 ml Sodium Chloride (Sodium Chloride 0.45%) 1,000 mls @ 100 mls/hr IV ASDIRECTED [facility] Last Admin: 07/19/16 06:24 Dose: 100 mls/hr Insulin Aspart (Novolog Mix 70-30) 30 unit SUBCUT ONETIME ONE Stop: 07/20/16 12:38 Iopamidol (Isovue-370 (76%)) 100 ml IVPUSH ONETIME ONE Stop: 07/18/16 11:45 Last Admin: 07/18/16 12:12 Dose: 100 ml Non-Formulary Medication (Insulin Nph/Insulin Reg,Human [Novolin 70-30]) 50 - 80 unit SUBCUT BID TOM Non-Formulary Medication (Lorazepam [Ativan]) 0.5 - 1 mg PO Q6H PRN PRN Reason: Anxiety Oseltamivir Phosphate (Tamiflu) 75 mg PO BID TOM - Exam General: alert, oriented HEENT: Mucous membr. moist/pink Neck: supple Lungs: Decreased breath sounds, Wheezing Cardiovascular: regular rate, regular rhythm Abdomen: bowel sounds present, soft, no tenderness Extremities: edema (2+ pitting in pedal/ankle region) - Problem List & Annotations (1) Anemia SNOMED Code(s): 976621376 Code(s): D64.9 - ANEMIA, UNSPECIFIED Status: Acute Current Visit: Yes Qualifiers: Anemia type: unspecified type Qualified Code(s): D64.9 - Anemia, unspecified (2) Influenza A SNOMED Code(s): 373227267 Code(s): J10.1 - FLU DUE TO OTH IDENT INFLUENZA VIRUS W OTH RESP MANIFEST Status: Acute Current Visit: Yes (3) Diabetes mellitus type 2 SNOMED Code(s): 88306521 Code(s): E11.9 - TYPE 2 DIABETES MELLITUS WITHOUT COMPLICATIONS Status: Chronic Priority: Medium Current Visit: No - Problem List Review Problem List Initiated/Reviewed/Updated: Yes - My Orders Last 24 Hours: My Active Orders 07/20/16 12:35 RT Aerosol Therapy [RC] ASDIRECTED 07/20/16 13:00 Albuterol/Ipratropium [DuoNeb 3.0-0.5 MG/3 ML] 3 ml NEB QIDRT - Assessment Assessment:: Influenza A - Plan Plan:: Patient states he feels he is doing much better today. Is now coughing with more sputum production. Wheezing this noon. Has however been up ambulating in the halls. Oxygen sats are 95% while resting in chair, do drop below 90% with walking. He feels shortness of breath only with activity. Has now been afebrile. Appetite is good. Patient does still have high blood sugars. Requests more 70/30 when high. Will continue IV antibiotics as directed. Start DuoNeb treatments today. Encourage ambulation. Reevaluate discharge potential in next 1-2 days.
[2016-07-20] MEDS: Albuterol/Ipratropium 3.0-0.5 MG/3 ML Neb Soln NEB SCH ×3 (13:36→20:14)
[2016-07-20] MEDS: Cyanocobalamin (Vitamin B12) 1,000 MCG Tab PO SCH (19:30)
[2016-07-20] MEDS: Enoxaparin 40 MG/0.4 ML Syringe SUBCUT SCH (19:31)
[2016-07-21] MEDS: Acetaminophen/HYDROcodone 325-5 MG Tab PO PRN ×2 (04:01→23:49)
[2016-07-21] MEDS: methylPREDNISolone Sodium Succinate 125 MG/2 ML SDV IVPUSH SCH (07:27)
[2016-07-21 07:28] LABS: CHLORIDE,CL 104 mEq/L (98-106); SODIUM,NA 144 mEq/L (136-145)
[2016-07-21] MEDS: Lisinopril 10 MG Tab PO SCH (07:28)
[2016-07-21] MEDS: Oseltamivir 75 MG Cap PO SCH ×2 (07:28→19:30)
[2016-07-21] MEDS: Torsemide 20 MG Tab PO SCH (07:28)
[2016-07-21] MEDS: Amiodarone 200 MG Tab PO SCH (07:28)
[2016-07-21] MEDS: Levofloxacin/Dextrose 5%-Water 500 MG in Premix Bag 1 BAG IV SCH (07:28)
[2016-07-21] MEDS: Ascorbic Acid 500 MG Tab PO SCH (07:28)
[2016-07-21] MEDS: Carvedilol 12.5 MG Tab PO SCH ×2 (07:28→19:29)
[2016-07-21] MEDS: Aspirin 325 MG Tab.EC PO SCH (07:28)
[2016-07-21] MEDS: Insuln Aspart Prot/Insulin Aspart 100 Units/ML 3 ML FlexPen SUBCUT SCH ×2 (07:29→17:36)
[2016-07-21] MEDS: Insulin Aspart 100 Units/ML 3 ML Pen SUBCUT SCH ×4 (07:30→20:22)
[2016-07-21] MEDS: Albuterol/Ipratropium 3.0-0.5 MG/3 ML Neb Soln NEB SCH ×4 (09:23→20:25)
--- NOTE | 2016-07-21 18:54 | PCM.PN ---
- General Info Date of Service: 07/21/16 Functional Status: Reports: pain controlled - Review of Systems General: Reports: weakness (general) HEENT: Reports: post nasal drip, sinus congestion Pulmonary: Reports: shortness of breath, cough, sputum Cardiovascular: Reports: no symptoms Gastrointestinal: Reports: No symptoms Genitourinary: Reports: no symptoms Musculoskeletal: Reports: no symptoms Skin: Reports: no symptoms Neurological: Reports: no symptoms Psychiatric: Reports: no symptoms - Patient Data Vitals - most recent: Last Vital Signs Temp 97.5 F 07/21/16 16:00 Pulse 65 07/21/16 16:00 Resp 16 07/21/16 16:00 BP 145/68 H 07/21/16 16:00 Pulse Ox 95 07/21/16 16:00 Weight - most recent: 319 lb I&O - last 24 hours: Intake & Output 07/21/16 07/21/16 07/21/16 06:59 14:59 22:59 Intake Total 100 1200 Output Total 325 1950 Balance -225 -750 Lab Results last 24 hrs: Laboratory Results - last 24 hr 07/20/16 07/21/16 07/21/16 Range/Units 20:07 07:05 07:05 WBC 8.9 (5.0-10.0) 10^3/uL RBC 3.27 L (4.50-6.00) 10^6/uL Hgb 10.3 L (14.0-18.0) g/dL Hct 32.6 L (40.0-54.0) % MCV 99.7 H (82.0-94.0) fL MCH 31.5 (27.0-32.0) pg MCHC 31.6 L (33.0-38.0) g/dL RDW Coeff of Sheron 14.3 (11.0-15.0) % Plt Count 201 (150-400) 10^3/uL Neut % (Auto) 78.4 (35-85) % Lymph % (Auto) 13.2 (10-55) % [place] % (Auto) 8.3 (0-16) % Eos % (Auto) 0 (0-5) % Baso % (Auto) 0.1 (0-3) % Neut # 6.98 (1.80-7.00) 10^3/uL Lymph # 1.18 (1.00-4.80) 10^3/uL [place] # 0.74 (0.00-0.80) 10^3/uL Eos # 0.00 (0.00-0.45) 10^3/uL Baso # 0.01 10^3/uL Sodium 144 (136-145) mEq/L Potassium 4.4 (3.5-5.0) mEq/L Chloride 104 (98-106) mEq/L Carbon Dioxide 33 H (21-32) mmol/L BUN 26 H (7-18) mg/dL Creatinine 1.2 (0.7-1.3) mg/dL Est Cr Clr Drug Dosing TNP Estimated GFR (MDRD) 59 L (>=60) mL/min Glucose 119 H D (75-99) mg/dL POC Glucose 291 H (75-105) mg/dl Calcium 8.7 (8.4-10.1) mg/dL C-Reactive Protein 3.2 H (0.2-0.8) mg/dL 07/21/16 Range/Units 11:36 WBC (5.0-10.0) 10^3/uL RBC (4.50-6.00) 10^6/uL Hgb (14.0-18.0) g/dL Hct (40.0-54.0) % MCV (82.0-94.0) fL MCH (27.0-32.0) pg MCHC (33.0-38.0) g/dL RDW Coeff of [place]on (11.0-15.0) % Plt Count (150-400) 10^3/uL Neut % (Auto) (35-85) % Lymph % (Auto) (10-55) % [place] % (Auto) (0-16) % Eos % (Auto) (0-5) % Baso % (Auto) (0-3) % Neut # (1.80-7.00) 10^3/uL Lymph # (1.00-4.80) 10^3/uL [place] # (0.00-0.80) 10^3/uL Eos # (0.00-0.45) 10^3/uL Baso # 10^3/uL Sodium (136-145) mEq/L Potassium (3.5-5.0) mEq/L Chloride (98-106) mEq/L Carbon Dioxide (21-32) mmol/L BUN (7-18) mg/dL Creatinine (0.7-1.3) mg/dL Est Cr Clr Drug Dosing Estimated GFR (MDRD) (>=60) mL/min Glucose (75-99) mg/dL POC Glucose 169 H (75-105) mg/dl Calcium (8.4-10.1) mg/dL C-Reactive Protein (0.2-0.8) mg/dL [place] Results last 24 hrs: Microbiology 07/18/16 21:45 Occult Blood - Final Stool / Feces Med Orders - Current: Current Medications Acetaminophen (Tylenol) 650 mg PO Q4H PRN PRN Reason: Pain (Mild 1-3)/fever Acetaminophen/Hydrocodone Bitart ([place] 325-5 Mg) 1 - 2 tab PO Q4H PRN PRN Reason: Pain Last Admin: 07/21/16 04:01 Dose: 1 tab Albuterol (Ventolin Hfa) 0 gm INH Q4H PRN PRN Reason: Dyspnea Albuterol/Ipratropium (Duoneb 3.0-0.5 Mg/3 Ml) 3 ml NEB QIDRT PRN PRN Reason: Shortness of Breath Albuterol/Ipratropium (Duoneb 3.0-0.5 Mg/3 Ml) 3 ml NEB QIDRT TOM Last Admin: 07/21/16 17:35 Dose: 3 ml Allopurinol (Zyloprim) 100 mg PO DAILY PRN PRN Reason: Other Amiodarone HCl (Cordarone) 200 mg PO DAILY [facility] Last Admin: 07/21/16 07:28 Dose: 200 mg Ascorbic Acid (Vitamin C) 500 mg PO DAILY [facility] Last Admin: 07/21/16 07:28 Dose: 500 mg Aspirin (Ecotrin) 325 mg PO DAILY [facility] Last Admin: 07/21/16 07:28 Dose: 325 mg Carvedilol (Coreg) 12.5 mg PO BID [facility] Last Admin: 07/21/16 07:28 Dose: 12.5 mg Cyanocobalamin (Vitamin B12) 1,000 mcg PO BEDTIME [facility] Last Admin: 07/20/16 19:30 Dose: 1,000 mcg Docusate Sodium (Colace) 100 mg PO BID PRN PRN Reason: Constipation Enoxaparin Sodium (Lovenox) 40 mg SUBCUT Q24H [facility] Last Admin: 07/20/16 19:31 Dose: 40 mg Gabapentin (Neurontin) 300 mg PO BEDTIME PRN PRN Reason: Nerve pain Last Admin: 07/20/16 00:25 Dose: 300 mg Levofloxacin/Dextrose 500 mg/ (Premix) 100 mls @ 100 mls/hr IV Q24H [facility] Last Admin: 07/21/16 07:28 Dose: 100 mls/hr Insulin Aspart (Novolog Mix 70-30) 50 - 80 unit SUBCUT BIDMEALS [facility] Last Admin: 07/21/16 17:36 Dose: 50 units Insulin Aspart (Novolog) 0 unit SUBCUT WITHMEALSANDBED [facility] PRN Reason: Protocol Last Admin: 07/21/16 17:35 Dose: 6 units Lisinopril (Prinivil) 10 mg PO DAILY [facility] Last Admin: 07/21/16 07:28 Dose: 10 mg Lorazepam (Ativan) 0 mg PO Q6H PRN PRN Reason: Anxiety Magnesium Oxide (Magnesium Oxide) 500 mg PO DAILY [facility] Last Admin: 07/21/16 07:28 Dose: 500 mg Methylprednisolone Sodium Succinate (Solu-Medrol) 62.5 mg IVPUSH Q24H [facility] Last Admin: 07/21/16 07:27 Dose: 62.5 mg Oseltamivir Phosphate (Tamiflu) 75 mg PO BID [facility] Last Admin: 07/21/16 07:28 Dose: 75 mg Sodium Chloride (Saline Flush) 10 ml FLUSH ASDIRECTED PRN PRN Reason: Keep Vein Open Torsemide (Demadex) 40 mg PO DAILY [facility] Last Admin: 07/21/16 07:28 Dose: 40 mg Zolpidem Tartrate (Ambien) 10 mg PO BEDTIME PRN PRN Reason: Insomnia Discontinued Medications Acetaminophen (Tylenol Extra Strength) 1,000 mg PO ONETIME ONE Stop: 07/18/16 10:42 Last Admin: 07/18/16 10:55 Dose: 1,000 mg Albuterol/Ipratropium (Duoneb 3.0-0.5 Mg/3 Ml) 3 ml NEB ONETIME ONE Stop: 07/18/16 10:42 Last Admin: 07/18/16 10:58 Dose: 3 ml Sodium Chloride (Sodium Chloride 0.45%) 1,000 mls @ 100 mls/hr IV ASDIRECTED TOM Last Admin: 07/19/16 06:24 Dose: 100 mls/hr Insulin Aspart (Novolog Mix 70-30) 30 unit SUBCUT ONETIME ONE Stop: 07/20/16 12:38 Last Admin: 07/20/16 13:36 Dose: 30 units Iopamidol (Isovue-370 (76%)) 100 ml IVPUSH ONETIME ONE Stop: 07/18/16 11:45 Last Admin: 07/18/16 12:12 Dose: 100 ml Non-Formulary Medication (Insulin Nph/Insulin Reg,Human [Novolin 70-30]) 50 - 80 unit SUBCUT BID TOM Non-Formulary Medication (Lorazepam [Ativan]) 0.5 - 1 mg PO Q6H PRN PRN Reason: Anxiety Oseltamivir Phosphate (Tamiflu) 75 mg PO BID TOM - Exam General: alert, oriented, cooperative, no acute distress Lungs: Normal respiratory effort, Wheezing (mild inspiratory, expiratory throughout. ) Cardiovascular: regular rate, regular rhythm, no murmurs Back Exam: normal inspection, full range of motion Extremities: no edema, normal pulses, no tenderness/swelling, no clubbing, no cyanosis, no calf tenderness Peripheral Pulses: 2+: radial (L), radial (R), posterior tibial (L), posterior tibial (R), dorsalis pedis (L), dorsalis pedis (R) Skin: warm, dry, intact Neurological: no new focal deficit, normal speech Psy/Mental Status: alert, normal affect, normal mood - Problem List Review Problem List Initiated/Reviewed/Updated: Yes - Assessment Assessment:: Influenza A - Plan Plan:: July 21, 2016 1830 Patient states he feels he is doing much better today. Is now coughing with more sputum production. Wheezing this evening. Reports breathing treatments improve this. Has been up ambulating in the halls without any difficulty. Oxygen sats are 96% while resting in chair, do drop below 92% with walking. He feels shortness of breath only with activity. Has now been afebrile for 48 hours without Tylenol or Motrin. Appetite is good. Patient does still have high blood sugars, but regulates well at home, on steroids now. Patient reports having general weakness, especially bilateral legs. However, again, ambulating in halls all day without difficulty. Discussed discharging tomorrow during daylight hours. Labs are unremarkable. BUN today is 26, yesterday 24, chronic. His CRP today improved to 3.2 today, yesterday 6.0. His CT Chest Angio was negative for PE or infiltrates. Will continue IV antibiotics as directed. Will continue DuoNeb treatments. Encourage ambulation. Reevaluate discharge potential tomorrow.
[2016-07-21] MEDS: Enoxaparin 40 MG/0.4 ML Syringe SUBCUT SCH (19:30)
[2016-07-21] MEDS: Cyanocobalamin (Vitamin B12) 1,000 MCG Tab PO SCH (19:30)
[2016-07-21] MEDS: Gabapentin 300 MG Cap PO PRN (23:49)
[2016-07-22] MEDS ORDERED: Oseltamivir 75 MG Cap PO ONE (07:42)
[2016-07-22] MEDS: Carvedilol 12.5 MG Tab PO SCH (07:47)
[2016-07-22] MEDS: Amiodarone 200 MG Tab PO SCH (07:48)
[2016-07-22] MEDS: Aspirin 325 MG Tab.EC PO SCH (07:48)
[2016-07-22] MEDS: Torsemide 20 MG Tab PO SCH (07:48)
[2016-07-22] MEDS: Ascorbic Acid 500 MG Tab PO SCH (07:48)
[2016-07-22] MEDS: Oseltamivir 75 MG Cap PO SCH (07:48)
[2016-07-22] MEDS: Levofloxacin/Dextrose 5%-Water 500 MG in Premix Bag 1 BAG IV SCH (07:49)
[2016-07-22] MEDS: Lisinopril 10 MG Tab PO SCH (07:49)
[2016-07-22] MEDS: methylPREDNISolone Sodium Succinate 125 MG/2 ML SDV IVPUSH SCH (07:49)
[2016-07-22 07:50] VITALS: BP 153/79
[2016-07-22] MEDS: Insuln Aspart Prot/Insulin Aspart 100 Units/ML 3 ML FlexPen SUBCUT SCH (07:50)
[2016-07-22] MEDS: Insulin Aspart 100 Units/ML 3 ML Pen SUBCUT SCH (08:00)
[2016-07-22 08:13] LABS: CHLORIDE,CL 102 mEq/L (98-106); SODIUM,NA 141 mEq/L (136-145)
--- NOTE | 2016-07-22 08:34 | PCM.DCSUM1 ---
Discharge Summary - Hospital Course HPI Initial Comments: Patient states he feels he is doing much better today. Is now coughing with more sputum production. Wheezing is minimal and much improved from yesterday. He is due now for his breathing treatment. Reports breathing treatments improve this. Has been up ambulating in the halls without any difficulty. Oxygen sats are 96% while resting in chair, do drop below 92% with walking. He feels shortness of breath only with activity. Has now been afebrile for 72 hours without Tylenol or Motrin. Appetite is good. Patient does still have high blood sugars, but regulates well at home, on steroids now. Patient ambulating in halls all day without difficulty. Patient reports he is feeling good and is ready to go home today. Labs are unremarkable. I will discharge. - Discharge Data Discharge Date: 07/22/16 Discharge Disposition: Home, Self-Care 01 Condition: Fair - Patient Summary/Data Consults: Consultations 07/18/16 12:06 PT Evaluation and Treatment [CONS] Routine - Patient Instructions Diet: Heart Healthy Diet, Low Sodium Activity: As Tolerated Showering/Bathing: May Shower Notify Provider of: Fever, Increased Pain, Swelling and Redness, Drainage, Nausea and/or Vomiting - Discharge Plan Prescriptions/Med Rec: Albuterol/Ipratropium [DuoNeb 3.0-0.5 MG/3 ML] 3 ml NEB QIDRT PRN #120 neb PRN Reason: Shortness Of Breath Levofloxacin/Dextrose 5%-Water [Levaquin in D5W 500 MG/100 ML] 500 mg PO Q24H # 2 bag Home Medications: Home Meds Acetaminophen/HYDROcodone [[place] 325-5 MG] 1 - 2 tab PO Q4H PRN 08/23/13 [ History] Allopurinol 100 mg PO DAILY PRN 08/23/13 [History] Cyanocobalamin (Vitamin B-12) [Vitamin B-12] 1,000 mcg PO BEDTIME 08/23/13 [ History] Docusate Sodium [Colace] 100 - 200 mg PO TID PRN 08/23/13 [History] Albuterol [Ventolin HFA] 2 puff INH Q4H PRN 09/22/13 [History] Gabapentin 300 mg PO BEDTIME PRN 09/22/13 [History] Vitamin A 10,000 unit PO BEDTIME 09/22/13 [History] Insulin NPH/Insulin Reg,Human [Novolin 70-30] 50 - 80 unit SUBCUT BID 09/23/14 [ History] LORazepam [Ativan] 0.5 - 1 mg PO Q6H PRN 09/23/14 [History] Amiodarone [Cordarone] 200 mg PO DAILY 09/16/15 [History] Apixaban [Eliquis] 5 mg PO BID 09/16/15 [History] Multivitamin [Daily Multiple Vitamin] 1 tab PO DAILY 09/16/15 [History] Aspirin [Ecotrin] 325 mg PO DAILY 07/05/16 [History] Carvedilol 12.5 mg PO BID 07/05/16 [History] Cholecalciferol (Vitamin D3) [Vitamin D3] 2,000 unit PO DAILY 07/05/16 [History] Cinnamon Bark [Cinnamon] 500 mg PO BID 07/05/16 [History] Hydrocodone/Acetaminophen [Hydrocodon-Acetaminophen 5-325] 1 each PO Q6H PRN 02/10 [History] Lisinopril 10 mg PO DAILY 07/05/16 [History] Torsemide [Demadex] 40 mg PO DAILY 07/05/16 [History] Zolpidem Tartrate [Ambien] 10 mg PO BEDTIME PRN 07/05/16 [History] Ascorbic Acid [Vitamin C] 500 mg PO DAILY #30 tablet 07/11/16 [Rx] Magnesium Oxide 500 mg PO DAILY #90 capsule 07/11/16 [Rx] Albuterol/Ipratropium [DuoNeb 3.0-0.5 MG/3 ML] 3 ml NEB QIDRT PRN #120 neb 07/22 [Rx] Levofloxacin/Dextrose 5%-Water [Levaquin in D5W 500 MG/100 ML] 500 mg PO Q24H # 2 bag 07/22/16 [Rx] Patient Handouts: Influenza, Adult, [id number], Acute Bronchitis Forms: ED Department Discharge Referrals: Provider,Unknown [Ordering Only Provider] - - Discharge Summary/Plan Comment DC Time >30 min.: No - General Info Functional Status: Reports: pain controlled - Review of Systems General: Reports: no symptoms HEENT: Reports: no symptoms Pulmonary: Reports: shortness of breath (mild baseline), cough, sputum Cardiovascular: Reports: no symptoms Gastrointestinal: Reports: No symptoms Genitourinary: Reports: no symptoms Musculoskeletal: Reports: no symptoms Skin: Reports: no symptoms Neurological: Reports: no symptoms Psychiatric: Reports: no symptoms - Patient Data Vitals - Most Recent: Last Vital Signs Temp 97 F 07/22/16 08:00 Pulse 64 07/22/16 08:00 Resp 16 07/22/16 08:00 BP 153/79 H 07/22/16 08:00 Pulse Ox 94 L 07/22/16 08:00 Weight - Most Recent: 319 lb I&O - Last 24 hours: Intake & Output 07/21/16 07/22/16 07/22/16 22:59 06:59 14:59 Intake Total 1200 500 Output Total 1950 300 350 Balance -750 200 -350 Lab Results - Last 24 hrs: Laboratory Results - last 24 hr 07/21/16 07/21/16 07/21/16 Range/Units 11:36 17:30 20:19 WBC (5.0-10.0) 10^3/uL RBC (4.50-6.00) 10^6/uL Hgb (14.0-18.0) g/dL Hct (40.0-54.0) % MCV (82.0-94.0) fL MCH (27.0-32.0) pg MCHC (33.0-38.0) g/dL RDW Coeff of Sheron (11.0-15.0) % Plt Count (150-400) 10^3/uL Neut % (Auto) (35-85) % Lymph % (Auto) (10-55) % Ripley % (Auto) (0-16) % Eos % (Auto) (0-5) % Baso % (Auto) (0-3) % Neut # (1.80-7.00) 10^3/uL Lymph # (1.00-4.80) 10^3/uL Ripley # (0.00-0.80) 10^3/uL Eos # (0.00-0.45) 10^3/uL Baso # 10^3/uL Sodium (136-145) mEq/L Potassium (3.5-5.0) mEq/L Chloride (98-106) mEq/L Carbon Dioxide (21-32) mmol/L BUN (7-18) mg/dL Creatinine (0.7-1.3) mg/dL Est Cr Clr Drug Dosing Estimated GFR (MDRD) (>=60) mL/min Glucose (75-99) mg/dL POC Glucose 169 H 283 H 317 H (75-105) mg/dl Calcium (8.4-10.1) mg/dL 07/22/16 07/22/16 07/22/16 Range/Units 04:46 07:45 07:45 WBC 9.2 (5.0-10.0) 10^3/uL RBC 3.33 L (4.50-6.00) 10^6/uL Hgb 10.4 L (14.0-18.0) g/dL Hct 33.4 L (40.0-54.0) % MCV 100.3 H (82.0-94.0) fL MCH 31.2 (27.0-32.0) pg MCHC 31.1 L (33.0-38.0) g/dL RDW Coeff of Sheron 14.4 (11.0-15.0) % Plt Count 210 (150-400) 10^3/uL Neut % (Auto) 76.0 (35-85) % Lymph % (Auto) 15.5 (10-55) % Ripley % (Auto) 8.5 (0-16) % Eos % (Auto) 0 (0-5) % Baso % (Auto) 0 (0-3) % Neut # 6.97 (1.80-7.00) 10^3/uL Lymph # 1.42 (1.00-4.80) 10^3/uL Ripley # 0.78 (0.00-0.80) 10^3/uL Eos # 0.00 (0.00-0.45) 10^3/uL Baso # 0.00 10^3/uL Sodium 141 (136-145) mEq/L Potassium 4.4 (3.5-5.0) mEq/L Chloride 102 (98-106) mEq/L Carbon Dioxide 33 H (21-32) mmol/L BUN 31 H (7-18) mg/dL Creatinine 1.3 (0.7-1.3) mg/dL Est Cr Clr Drug Dosing TNP Estimated GFR (MDRD) 54 L (>=60) mL/min Glucose 127 H (75-99) mg/dL POC Glucose 161 H (75-105) mg/dl Calcium 8.8 (8.4-10.1) mg/dL 07/22/16 Range/Units 07:45 WBC (5.0-10.0) 10^3/uL RBC (4.50-6.00) 10^6/uL Hgb (14.0-18.0) g/dL Hct (40.0-54.0) % MCV (82.0-94.0) fL MCH (27.0-32.0) pg MCHC (33.0-38.0) g/dL RDW Coeff of Sheron (11.0-15.0) % Plt Count (150-400) 10^3/uL Neut % (Auto) (35-85) % Lymph % (Auto) (10-55) % Ripley % (Auto) (0-16) % Eos % (Auto) (0-5) % Baso % (Auto) (0-3) % Neut # (1.80-7.00) 10^3/uL Lymph # (1.00-4.80) 10^3/uL Ripley # (0.00-0.80) 10^3/uL Eos # (0.00-0.45) 10^3/uL Baso # 10^3/uL Sodium (136-145) mEq/L Potassium (3.5-5.0) mEq/L Chloride (98-106) mEq/L Carbon Dioxide (21-32) mmol/L BUN (7-18) mg/dL Creatinine (0.7-1.3) mg/dL Est Cr Clr Drug Dosing Estimated GFR (MDRD) (>=60) mL/min Glucose (75-99) mg/dL POC Glucose 125 H (75-105) mg/dl Calcium (8.4-10.1) mg/dL HIMANSHU Results - Last 24 hrs: Microbiology 07/18/16 21:45 Occult Blood - Final Stool / Feces Med Orders - Current: Current Medications Acetaminophen (Tylenol) 650 mg PO Q4H PRN PRN Reason: Pain (Mild 1-3)/fever Acetaminophen/Hydrocodone Bitart ([place] 325-5 Mg) 1 - 2 tab PO Q4H PRN PRN Reason: Pain Last Admin: 07/21/16 23:49 Dose: 1 tab Albuterol (Ventolin Hfa) 0 gm INH Q4H PRN PRN Reason: Dyspnea Albuterol/Ipratropium (Duoneb 3.0-0.5 Mg/3 Ml) 3 ml NEB QIDRT PRN PRN Reason: Shortness of Breath Albuterol/Ipratropium (Duoneb 3.0-0.5 Mg/3 Ml) 3 ml NEB QIDRT [facility] Last Admin: 07/21/16 20:25 Dose: 3 ml Allopurinol (Zyloprim) 100 mg PO DAILY PRN PRN Reason: Other Amiodarone HCl (Cordarone) 200 mg PO DAILY [facility] Last Admin: 07/22/16 07:48 Dose: 200 mg Ascorbic Acid (Vitamin C) 500 mg PO DAILY [facility] Last Admin: 07/22/16 07:48 Dose: 500 mg Aspirin (Ecotrin) 325 mg PO DAILY [facility] Last Admin: 07/22/16 07:48 Dose: 325 mg Carvedilol (Coreg) 12.5 mg PO BID [facility] Last Admin: 07/22/16 07:47 Dose: 12.5 mg Cyanocobalamin (Vitamin B12) 1,000 mcg PO BEDTIME [facility] Last Admin: 07/21/16 19:30 Dose: 1,000 mcg Docusate Sodium (Colace) 100 mg PO BID PRN PRN Reason: Constipation Enoxaparin Sodium (Lovenox) 40 mg SUBCUT Q24H [facility] Last Admin: 07/21/16 19:30 Dose: 40 mg Gabapentin (Neurontin) 300 mg PO BEDTIME PRN PRN Reason: Nerve pain Last Admin: 07/21/16 23:49 Dose: 300 mg Levofloxacin/Dextrose 500 mg/ (Premix) 100 mls @ 100 mls/hr IV Q24H [facility] Last Admin: 07/22/16 07:49 Dose: 100 mls/hr Insulin Aspart (Novolog Mix 70-30) 50 - 80 unit SUBCUT BIDMEALS [facility] Last Admin: 07/22/16 07:50 Dose: 30 units Insulin Aspart (Novolog) 0 unit SUBCUT WITHMEALSANDBED [facility] PRN Reason: Protocol Last Admin: 07/22/16 08:00 Dose: Not Given Lisinopril (Prinivil) 10 mg PO DAILY [facility] Last Admin: 07/22/16 07:49 Dose: 10 mg Lorazepam (Ativan) 0 mg PO Q6H PRN PRN Reason: Anxiety Magnesium Oxide (Magnesium Oxide) 500 mg PO DAILY [facility] Last Admin: 07/22/16 07:48 Dose: 500 mg Methylprednisolone Sodium Succinate (Solu-Medrol) 62.5 mg IVPUSH Q24H [facility] Last Admin: 07/22/16 07:49 Dose: 62.5 mg Oseltamivir Phosphate (Tamiflu) 75 mg PO BID [facility] Last Admin: 07/22/16 07:48 Dose: 75 mg Sodium Chloride (Saline Flush) 10 ml FLUSH ASDIRECTED PRN PRN Reason: Keep Vein Open Torsemide (Demadex) 40 mg PO DAILY [facility] Last Admin: 07/22/16 07:48 Dose: 40 mg Zolpidem Tartrate (Ambien) 10 mg PO BEDTIME PRN PRN Reason: Insomnia Discontinued Medications Acetaminophen (Tylenol Extra Strength) 1,000 mg PO ONETIME ONE Stop: 07/18/16 10:42 Last Admin: 07/18/16 10:55 Dose: 1,000 mg Albuterol/Ipratropium (Duoneb 3.0-0.5 Mg/3 Ml) 3 ml NEB ONETIME ONE Stop: 07/18/16 10:42 Last Admin: 07/18/16 10:58 Dose: 3 ml Sodium Chloride (Sodium Chloride 0.45%) 1,000 mls @ 100 mls/hr IV ASDIRECTED [facility] Last Admin: 07/19/16 06:24 Dose: 100 mls/hr Insulin Aspart (Novolog Mix 70-30) 30 unit SUBCUT ONETIME ONE Stop: 07/20/16 12:38 Last Admin: 07/20/16 13:36 Dose: 30 units Iopamidol (Isovue-370 (76%)) 100 ml IVPUSH ONETIME ONE Stop: 07/18/16 11:45 Last Admin: 07/18/16 12:12 Dose: 100 ml Non-Formulary Medication (Insulin Nph/Insulin Reg,Human [Novolin 70-30]) 50 - 80 unit SUBCUT BID [facility] Non-Formulary Medication (Lorazepam [Ativan]) 0.5 - 1 mg PO Q6H PRN PRN Reason: Anxiety Oseltamivir Phosphate (Tamiflu) 75 mg PO BID [facility] Oseltamivir Phosphate (Tamiflu) 75 mg PO ONETIME ONE Stop: 07/22/16 07:43 - Exam General: Reports: alert, oriented, cooperative, no acute distress Neck: Reports: supple Lungs: Reports: Wheezing (mild) Cardiovascular: Reports: regular rate, regular rhythm, no murmurs Extremities: Reports: no edema Skin: Reports: warm, dry Neurological: Reports: no new focal deficit Psy/Mental Status: Reports: alert, normal affect, normal mood *Q Meaningful Use (DIS) - VTE *Q VTE Criteria *Q: - Stroke *Q Stroke Criteria *Q: - AMI *Q AMI Criteria *Q:
[2016-07-22] MEDS: Albuterol/Ipratropium 3.0-0.5 MG/3 ML Neb Soln NEB SCH (09:06)
[2016-07-22] MEDS ORDERED: Take Home: Albuterol/Ipratropium 3.0-0.5 MG/3 ML Neb Soln, 4 Neb Pack NEB ONE (09:09)
== END 2016-07-22 10:50 | disposition home or self-care (01) | DRG 194 ==
LOC: CC.ED 09:50 → CC.MS 11:32
PROVIDERS: ADMIT Physician Assistant Medical; ATTEND General Practice
DX: J10.1 Influenza due to other identified influenza virus with other respiratory manifestations (principal); I42.9 Cardiomyopathy, unspecified; D64.9 Anemia, unspecified; Z87.891 Personal history of nicotine dependence; I50.9 Heart failure, unspecified; E78.00 Pure hypercholesterolemia, unspecified; I10 Essential (primary) hypertension; G47.30 Sleep apnea, unspecified; R06.02 Shortness of breath; M10.9 Gout, unspecified; M19.90 Unspecified osteoarthritis, unspecified site; E11.42 Type 2 diabetes mellitus with diabetic polyneuropathy; Z79.4 Long term (current) use of insulin; Z91.81 History of falling
CPT/HCPCS: 36415; 71020; 80053; 82728; 83540; 83735; 83880; 84466; 85025; 85379; 86140; 87040 ×2; 87070; 87205; 87804 ×2; 99285; A9270; 71275; 80048; 81001; 82270; 82607; 82746; 82962; J1650; J1815-GY; J1956; J2930; J7030; Q9967

== ENCOUNTER → 2017-05-31 | Day surgery (SDC) | payer MEDICARE, BC ==
[~2017-05-31] MED LIST: Lactated Ringers 1,000 ML IV SCH; Propofol 200 MG/20 ML SDV IV ONE
--- NOTE | 2017-05-31 07:56 | OR ---
DATE OF OPERATION: 05/31/2017 PREOPERATIVE DIAGNOSIS: UPPER GASTROINTESTINAL BLEED. POSTOPERATIVE DIAGNOSIS: UPPER GASTROINTESTINAL BLEED. SURGEON: Hany Mix MD PROCEDURE: ESOPHAGOGASTRODUODENOSCOPY WITH BIOPSY X2, JESSICA. ANESTHESIA: [employer] due to morbid obesity, obstructive sleep apnea. COMPLICATIONS: None. SPECIMEN: Antral biopsy x2, JESSICA. FINDINGS: 1. Full-length EGD. 2. Minimal antral gastritis without ulceration or signs of bleeding. RECOMMENDATIONS: Follow up medically with Dr. Roberts. INDICATIONS: The patient has apparently recent diagnosis of GI bleed, felt to be more than likely upper. He was sent by Dr. Roberts for EGD. DESCRIPTION OF PROCEDURE: The patient was prepped and draped, placed in the left lateral decubitus position. A lubricated Olympus gastroscope was inserted over a bit and easily advanced to the cricopharyngeus area and intubated in the esophagus. Esophageal lining was benign in its entire course. The Z-line was crisp and sharp around 40 cm without any spontaneous reflux, distal esophagitis, stricturing, ulceration or bleeding sites. Scope was advanced into the stomach through the pylorus into the second portion of the duodenum. This and the duodenal bulb were benign. A thorough evaluation of the antrum and fundus was accomplished, was difficult for retroflexion to evaluate the upper fundus and cardia, in that manner just due to difficulty in insufflating his stomach itself but direct visualization did show some very old and minimal gastritis of the antrum and a couple linear areas of inflammation but no wilber ulceration or erosions. Definitely no signs of active bleeding or recent bleeding with adherent clot etc. Two biopsies of the antrum were taken along with a JESSICA test. The rest of the fundus and cardia upon direct exam appeared benign. No other masses or lesions were seen. Air was suctioned. Scope removed without complication. NASEEM/JANAK /[id number]
[2017-05-31 08:08] VITALS: BP 118/85
== END ==
LOC: CC.SDS 06:24
PROVIDERS: ATTEND Family Medicine
DX: K29.70 Gastritis, unspecified, without bleeding (principal); I50.9 Heart failure, unspecified; I48.91 Unspecified atrial fibrillation; K21.9 Gastro-esophageal reflux disease without esophagitis; D64.9 Anemia, unspecified; G47.33 Obstructive sleep apnea (adult) (pediatric); F32.9 Major depressive disorder, single episode, unspecified; E11.9 Type 2 diabetes mellitus without complications; I11.0 Hypertensive heart disease with heart failure; Z79.899 Other long term (current) drug therapy; Z79.82 Long term (current) use of aspirin; Z79.4 Long term (current) use of insulin
CPT/HCPCS: 43239; 82962; 87081; J2704; J7120; 00731; 88305

== ENCOUNTER 2017-11-12 03:05 | Emergency (ER) | payer MEDICARE, BC ==
--- NOTE | 2017-11-12 03:12 | EDM.PDOC ---
ED HPI GENERAL MEDICAL PROBLEM - General Chief Complaint: General Stated Complaint: short of breath, warm, sweaty, not able to sleep Time Seen by Provider: 11/12/17 03:12 Source of Information: Reports: Patient, EMS - History of Present Illness INITIAL COMMENTS - FREE TEXT/NARRATIVE: Maxi is a 77 year old male with PMH of hypertension, hyperlipidemia, CHF, morbid obesity, type II DM, and sleep apnea, who presents to the ED via [facility] with c/o shortness of breath and an episode of feeling sweaty. He reports he was attempting to sleep in his recliner and couldn't fall asleep. He reports he was feeling short of breath and "sweating like a hog in a tassel maker. " He reports he had his gallbladder removed on Saturday, so he was worried about infection. reports he has been afebrile. He reports that he wasn't feeling well throughout the weekend and was more weak than normal. reports he hasn' t done much other than sit around. She reports that yesterday he seemed to have more energy so she did not bring him in initially. Upon my arrival to the ED, patient had O2 applied via [place]. He reports that he is feeling fine and no longer has shortness of breath. He denies any chest pain, dizziness, fever, chills, decreased appetite, abdominal pain, N/V/D, constipation, urinary symptoms. He reports he is feeling fine other than his legs are weak, which is baseline for him. Onset Date: 11/09/17 Associated Symptoms: Reports: Shortness of Breath, Weakness. Denies: Confusion , Chest Pain, Cough, cough w sputum, Diaphoresis, Fever/Chills, Headaches, Loss of Appetite, Malaise, Nausea/Vomiting, Rash, Seizure, Syncope - Related Data Allergies Allergy/AdvReac Type Severity Reaction Status Date / Time rivaroxaban [From Xarelto] Allergy Bleeding Verified 11/12/17 03:19 Home Meds: Home Meds Allopurinol 100 mg PO DAILY PRN 08/23/13 [History] Cyanocobalamin (Vitamin B-12) [Vitamin B-12] 1,000 mcg PO BEDTIME 08/23/13 [ History] Albuterol [Ventolin HFA] 2 puff INH Q4H PRN 04/29/14 [History] Gabapentin 300 mg PO BEDTIME PRN 09/22/13 [History] Amiodarone [Cordarone] 200 mg PO DAILY 09/16/15 [History] Multivitamin [Daily Multiple Vitamin] 1 tab PO DAILY 09/16/15 [History] Aspirin [Ecotrin] 325 mg PO DAILY 07/05/16 [History] Carvedilol 12.5 mg PO BID 07/05/16 [History] Cholecalciferol (Vitamin D3) [Vitamin D3] 2,000 unit PO DAILY 07/05/16 [History] Cinnamon Bark [Cinnamon] 500 mg PO BID 07/05/16 [History] Hydrocodone/Acetaminophen [Hydrocodon-Acetaminophen 5-325] 1 each PO Q6H PRN 02/10 [History] Lisinopril 10 mg PO DAILY 07/05/16 [History] Torsemide [Demadex] 20 mg PO BID 07/05/16 [History] Ascorbic Acid [Vitamin C] 500 mg PO DAILY #30 tablet 07/11/16 [Rx] Albuterol/Ipratropium [DuoNeb 3.0-0.5 MG/3 ML] 3 ml NEB QIDRT PRN #120 neb 07/22 [Rx] Insulin NPH/Insulin Reg,Human [NovoLIN 70-30] 10 - 50 unit SQ ASDIRECTED [History] Vitamin A Palmitate [Vitamin A] 10,000 unit PO DAILY 05/30/17 [History] Apixaban [Eliquis] 5 mg PO BID 11/12/17 [History] Docusate Sodium [Colace] 100 mg PO DAILY 11/12/17 [History] Past Medical History Cardiovascular History: Reports: Cardiomyopathy, Heart Failure, High Cholesterol , Hypertension, Pacemaker Respiratory History: Reports: Sleep Apnea, SOB, Other (See Below) Other Respiratory History: history of bronchiolitis Genitourinary History: Reports: Other (See Below) Other Genitourinary History: history of gross hematuria, nocturua Musculoskeletal History: Reports: Arthritis, Gout, Other (See Below) Other Musculoskeletal History: history of bursitis, closed fracture of base of 5th metatarsal bone, trochanteric bursitis of left hip, chronic arthralgias of knees and hips Neurological History: Reports: Neuropathy, Peripheral Psychiatric History: Reports: Other (See Below) Other Psychiatric History: insomnia Endocrine/Metabolic History: Reports: Diabetes, Type II Hematologic History: Reports: Other (See Below) Other Hematologic History: vitamin D deficiency Oncologic (Cancer) History: Reports: Prostate Dermatologic History: Reports: Other (See Below) Other Dermatologic History: history of fungal dermatitis - Past Surgical History Male Surgical History: Reports: Other (See Below) Musculoskeletal Surgical History: Reports: Knee Replacement, Shoulder Surgery, Other (See Below) Social & Family History - Family History Family Medical History: Noncontributory - Caffeine Use Caffeine Use: Reports: None - Living Situation & Occupation Living situation: Reports: Occupation: Retired ED ROS GENERAL - Review of Systems Review Of Systems: See Below Constitutional: Reports: Chills. Denies: Fever, Weakness, Fatigue, Decreased Appetite, Weight Gain Respiratory: Reports: Shortness of Breath. Denies: Wheezing, Pleuritic Chest Pain, Cough, Sputum, Hemoptysis Cardiovascular: Reports: Dyspnea on Exertion, Edema. Denies: Chest Pain, Lightheadedness, Palpitations, Syncope Endocrine: Reports: Fatigue GI/Abdominal: Denies: Abdominal Pain, Black Stool, Bloody Stool, Constipation, Diarrhea, Decreased Appetite, Distension, Hematemesis, Hematochezia, Nausea, Vomiting : Reports: No Symptoms. Denies: Dysuria, Flank Pain, Frequency, Urgency Musculoskeletal: Reports: No Symptoms Skin: Reports: No Symptoms Neurological: Reports: Difficulty Walking (due to weakness and obesity), Weakness. Denies: Confusion, Dizziness, Headache, Numbness, Syncope, Tingling Psychiatric: Reports: No Symptoms Hematologic/Lymphatic: Reports: No Symptoms Immunologic: Reports: No Symptoms ED EXAM, GENERAL - Physical Exam Exam: See Below Exam Limited By: No Limitations General Appearance: Alert, WD/WN, No Apparent Distress Head: Atraumatic, Normocephalic Neck: Normal Inspection, Supple, Non-Tender, Full Range of Motion Respiratory/Chest: No Respiratory Distress, Lungs Clear, Normal Breath Sounds, No Accessory Muscle Use, Chest Non-Tender, Wheezing (wheezing to LLL otherwise clear) Cardiovascular: Normal Peripheral Pulses, Regular Rate, Rhythm, No Edema, No Gallop, No JVD, No Murmur, No Rub GI/Abdominal: Normal Bowel Sounds, Soft, Non-Tender, No Organomegaly, No Distention, No Abnormal Bruit, No Mass, Other (lap sites from cholecystectomy) Back Exam: Normal Inspection, Full Range of Motion, NT Extremities: Normal Inspection, Normal Range of Motion, Non-Tender, Normal Capillary Refill, Pedal Edema (1+ pitting to BLE) Neurological: Alert, Oriented, CN II-XII Intact, Normal Cognition, Normal Gait, Normal Reflexes, No Motor/Sensory Deficits Psychiatric: Normal Affect, Normal Mood Skin Exam: Warm, Dry, Intact, Normal Color, No Rash Lymphatic: No Adenopathy Course - Vital Signs Last Recorded V/S: Last Vital Signs Temp 96.2 F 11/12/17 09:00 Pulse 62 11/12/17 09:00 Resp 20 11/12/17 09:00 BP 142/69 H 11/12/17 09:00 Pulse Ox 94 L 11/12/17 09:00 - Orders/Labs/Meds Labs: Laboratory Tests 11/12/17 11/12/17 11/12/17 Range/Units 03:49 05:11 06:50 WBC 6.9 (5.0-10.0) 10^3/uL RBC 3.22 L (4.50-6.00) 10^6/uL Hgb 10.1 L (14.0-18.0) g/dL Hct 32.6 L (40.0-54.0) % MCV 101.2 H (82.0-94.0) fL MCH 31.4 (27.0-32.0) pg MCHC 31.0 L (33.0-38.0) g/dL RDW Coeff of Sheron 16.4 H (11.0-15.0) % Plt Count 134 L (150-400) 10^3/uL Neut % (Auto) 62.9 (35-85) % Lymph % (Auto) 22.1 (10-55) % Mcculloch % (Auto) 12.7 (0-16) % Eos % (Auto) 2.0 (0-5) % Baso % (Auto) 0.3 (0-3) % Neut # (Auto) 4.34 (1.80-7.00) 10^3/uL Lymph # (Auto) 1.53 (1.00-4.80) 10^3/uL Mcculloch # (Auto) 0.88 H (0.00-0.80) 10^3/uL Eos # (Auto) 0.14 (0.00-0.45) 10^3/uL Baso # (Auto) 0.02 10^3/uL Sodium 142 (136-145) mEq/L Potassium 4.5 (3.5-5.0) mEq/L Chloride 106 (98-106) mEq/L Carbon Dioxide 30 (21-32) mmol/L BUN 72 H* (7-18) mg/dL Creatinine 1.9 H (0.7-1.3) mg/dL Est Cr Clr Drug Dosing 29.85 mL/min Estimated GFR (MDRD) 35 L (>=60) mL/min Glucose 123 H D (75-99) mg/dL Calcium 8.7 (8.4-10.1) mg/dL Total Bilirubin 0.6 (0.0-1.0) mg/dL AST 28 (15-37) U/L ALT 32 (12-78) U/L Alkaline Phosphatase 47 (46-116) U/L Troponin I 0.021 (0.00-0.06) ng/mL C-Reactive Protein 22.7 H (0.2-0.8) mg/dL NT-Pro-B Natriuret Pep 3142 H (0-1000) pg/mL Total Protein 6.0 L (6.4-8.2) g/dL Albumin 2.7 L (3.4-5.0) g/dL Urine Color Yellow (YELLOW) Urine Appearance Clear (CLEAR) Urine pH 5.5 (4.5-8.0) Ur Specific [place] <= 1.005 (1.003-1.020) Urine Protein Negative (NEGATIVE) mg/dL Urine Glucose (UA) Negative (NEGATIVE) mg/dL Urine Ketones Negative (NEGATIVE) mg/dL Urine Occult Blood Negative (NEGATIVE) Urine Nitrite Negative (NEGATIVE) Urine Bilirubin Negative (NEGATIVE) Urine Urobilinogen 0.2 (0.2-1.0) EU/dL Ur Leukocyte Esterase Negative (NEGATIVE) Urine RBC Not seen (0-5) /HPF Urine WBC Not seen (0-5) /HPF Meds: Medications Discontinued Medications Generic Name Dose Route Start Last Admin Trade Name Freq PRN Reason Stop Dose Admin Albuterol/Ipratropium 3 ml 11/12/17 04:54 Duoneb 3.0-0.5 Mg/3 Ml NEB Q4H PRN Dyspnea - Re-Assessments/Exams Free Text/Narrative Re-Assessment/Exam: 11/12/17 03:46 He reports his shortness of breath has resolved once they put oxygen on him. His VS are stable on 2 L O2. He is afebrile and his lung sounds are clear. EKG reveals pace rhythm. We will keep in extended ER for monitoring overnight as does not feel she can take him home. Patient denies any complaints at this time. 11/12/17 08:00 Patient reports he is feeling fine, other than his legs are weak. Nursing staff reports he has been up ambulating to the bathroom per baseline. Labs are reviewed at this time and stable. Pro-BNP increased from last check. CRP elevated, however patient recently had gallbladder surgery. WBC normal. 11/12/2017 11:30 present. Discussed labs and her ability to care for him at home. She reports she would like to take him home at this time and feels she can handle it. I did discuss Home Health Care, to which they declined at this time. They voiced that they would like to see how he recovers from surgery before initiating that. Discussed normal CXR with patient and family. and patient voiced understanding and felt ready for discharge. Departure - Departure Time of Disposition: 11:34 Disposition: Home, Self-Care 01 Condition: Fair Clinical Impression: CHF, Congestive heart failure - Discharge Information Instructions: Heart Failure, [id number] Referrals: Brad Roberts MD [Primary Care Provider] - Forms: ED Department Discharge Additional Instructions: Increase Torsemide to 40 mg in am and 20 in afternoon Continue iron pill daily Follow up in clinic Saturday with [facility] 11/19/2017 at 9:15 am for recheck, lab prior to appointment
[2017-11-12] MEDS ORDERED: Albuterol/Ipratropium 3.0-0.5 MG/3 ML Neb Soln NEB PRN (04:54)
[2017-11-12 12:14] VITALS: BP 142/69
== END 2017-11-12 11:45 | disposition home or self-care (01) ==
LOC: CC.ED 03:05 → SUPCPDRO 03:05 → CC.ED 11:45
DX: I11.0 Hypertensive heart disease with heart failure (principal); I50.9 Heart failure, unspecified; E11.42 Type 2 diabetes mellitus with diabetic polyneuropathy; Z88.8 Allergy status to other drugs, medicaments and biological substances; Z79.899 Other long term (current) drug therapy; Z79.82 Long term (current) use of aspirin
CPT/HCPCS: 36415; 71046; 80053; 81001; 83880; 84484; 85025; 86140; 99285

== ENCOUNTER 2018-03-02 09:55 | Inpatient (IN) | payer MEDICARE, BC ==
--- NOTE | 2018-03-02 10:54 | EDM.PDOC ---
ED HPI GENERAL MEDICAL PROBLEM - General Chief Complaint: Abdominal Pain Stated Complaint: SLID OUT OF CHAIR/RIGHT SIDED ABDOMINAL PAIN Time Seen by Provider: 03/02/18 10:45 Source of Information: Reports: Patient History Limitations: Reports: No Limitations - History of Present Illness INITIAL COMMENTS - FREE TEXT/NARRATIVE: patient reports intermittent abdominal pain in RUQ since October of this year s/p cholecystectomy. he is here after suffering a non injury mechanical fall today and was contacted by EMS. he reports that he decided to come here for abdominal pain eval and denies pain or injury from fall. Duration: Intermittent Location: Reports: Abdomen Quality: Reports: Stabbing Severity: Mild Worsens with: Reports: Movement Associated Symptoms: Reports: Fever/Chills Right Upper Abdomen Pain Score (Numeric/FACES): 3 - Related Data Allergies Allergy/AdvReac Type Severity Reaction Status Date / Time rivaroxaban [From Xarelto] Allergy Bleeding Verified 03/02/18 10:45 Home Meds: Home Meds Cyanocobalamin (Vitamin B-12) [Vitamin B-12] 1,000 mcg PO BEDTIME 08/23/13 [ History] Albuterol [Ventolin HFA] 2 puff INH Q4H PRN 09/22/13 [History] Gabapentin 300 mg PO TID PRN 09/22/13 [History] Amiodarone [Cordarone] 200 mg PO DAILY 09/16/15 [History] Multivitamin [Daily Multiple Vitamin] 1 tab PO DAILY 09/16/15 [History] Aspirin [Ecotrin] 325 mg PO DAILY 07/05/16 [History] Carvedilol 12.5 mg PO BID 07/05/16 [History] Cholecalciferol (Vitamin D3) [Vitamin D3] 2,000 unit PO DAILY 07/05/16 [History] Cinnamon Bark [Cinnamon] 500 mg PO BID 07/05/16 [History] Hydrocodone/Acetaminophen [Hydrocodon-Acetaminophen 5-325] 1 each PO Q6H PRN 02/10 [History] Lisinopril 10 mg PO DAILY 07/05/16 [History] Torsemide [Demadex] 20 mg PO BID 07/05/16 [History] Ascorbic Acid [Vitamin C] 500 mg PO DAILY #30 tablet 07/11/16 [Rx] Albuterol/Ipratropium [DuoNeb 3.0-0.5 MG/3 ML] 3 ml NEB QIDRT PRN #120 neb 07/22 [Rx] Insulin NPH/Insulin Reg,Human [NovoLIN 70-30] 10 - 50 unit SQ ASDIRECTED [History] Vitamin A Palmitate [Vitamin A] 10,000 unit PO DAILY 05/30/17 [History] Docusate Sodium [Colace] 100 mg PO DAILY 11/12/17 [History] Past Medical History Cardiovascular History: Reports: Cardiomyopathy, Heart Failure, High Cholesterol , Hypertension, Pacemaker Respiratory History: Reports: Sleep Apnea, SOB, Other (See Below) Other Respiratory History: history of bronchiolitis Genitourinary History: Reports: Other (See Below) Other Genitourinary History: history of gross hematuria, nocturua Musculoskeletal History: Reports: Arthritis, Gout, Other (See Below) Other Musculoskeletal History: history of bursitis, closed fracture of base of 5th metatarsal bone, trochanteric bursitis of left hip, chronic arthralgias of knees and hips Neurological History: Reports: Neuropathy, Peripheral Psychiatric History: Reports: Other (See Below) Other Psychiatric History: insomnia Endocrine/Metabolic History: Reports: Diabetes, Type II Hematologic History: Reports: Other (See Below) Other Hematologic History: vitamin D deficiency Oncologic (Cancer) History: Reports: Prostate Dermatologic History: Reports: Other (See Below) Other Dermatologic History: history of fungal dermatitis - Past Surgical History GI Surgical History: Reports: Cholecystectomy, Colon, Colonoscopy Male Surgical History: Reports: Other (See Below) Musculoskeletal Surgical History: Reports: Knee Replacement, Shoulder Surgery, Other (See Below) Social & Family History - Family History Family Medical History: Noncontributory - Tobacco Use Smoking Status *Q: Former Smoker Used Tobacco, but Quit: Yes Month/Year Tobacco Last Used: 1982 - Caffeine Use Caffeine Use: Reports: Coffee, Soda, Tea - Recreational Drug Use Recreational Drug Use: No - Living Situation & Occupation Living situation: Reports: Occupation: Retired ED ROS GENERAL - Review of Systems Review Of Systems: See Below Constitutional: Reports: Fever, Chills HEENT: Reports: No Symptoms Respiratory: Denies: Shortness of Breath Cardiovascular: Denies: Chest Pain GI/Abdominal: Reports: Abdominal Pain, Constipation. Denies: Black Stool, Diarrhea, Nausea, Vomiting : Denies: Dysuria, Flank Pain, Urinary Retention Musculoskeletal: Denies: Neck Pain, Shoulder Pain, Arm Pain, Back Pain, Muscle Pain Skin: Reports: No Symptoms Neurological: Reports: No Symptoms ED EXAM, GI/ABD - Physical Exam Exam: See Below Exam Limited By: No Limitations General Appearance: Alert, WD/WN, No Apparent Distress Head: Atraumatic, Normocephalic Neck: Normal Inspection, Supple, Non-Tender, Full Range of Motion Respiratory/Chest: No Respiratory Distress, Lungs Clear, Normal Breath Sounds, No Accessory Muscle Use, Chest Non-Tender Cardiovascular: Normal Peripheral Pulses, Regular Rate, Rhythm GI/Abdominal Exam: Other (hypoactive bowel sounds x4. TTP RUQ. several small bruises about the abdomen consistent with insulin use.) Back Exam: Normal Inspection, Full Range of Motion Extremities: Normal Inspection, Normal Range of Motion, Non-Tender, Normal Capillary Refill Neurological: Alert, Oriented, Normal Cognition Psychiatric: Normal Affect, Normal Mood Skin Exam: Warm, Dry, Intact, Normal Color, No Rash Lymphatic: No Adenopathy Course - Vital Signs Last Recorded V/S: Last Vital Signs Temp 37.6 C 03/02/18 17:15 Pulse 64 03/02/18 16:00 Resp 20 03/02/18 16:00 BP 113/42 L 03/02/18 16:00 Pulse Ox 93 L 03/02/18 16:20 - Orders/Labs/Meds Orders: Active Orders 24 hr Category Date Time Status CXR [Chest 2V] [CR] Stat Exams 03/02/18 11:37 Taken LIPASE [REF] Stat Lab 03/02/18 10:35 Received UA W/MICROSCOPIC [URIN] Stat Lab 03/02/18 10:31 Ordered Medication Orders Acetaminophen (Tylenol) 650 mg PO Q4H PRN PRN Reason: Fever Last Admin: 03/02/18 14:02 Dose: 650 mg Hydrocodone Bitart/Acetaminophen ([place] 325-5 Mg) 1 tab PO Q6H PRN PRN Reason: PAIN Albuterol (Ventolin Hfa) 0 gm INH Q4H PRN PRN Reason: DYSPNEA Albuterol (Proventil Neb Soln) 2.5 mg INH QIDRT PRN PRN Reason: SHORTNESS OF BREATH Amiodarone HCl (Cordarone) 200 mg PO DAILY [facility] Ascorbic Acid (Vitamin C) 500 mg PO DAILY [facility] Aspirin (Ecotrin) 325 mg PO DAILY [facility] Carvedilol (Coreg) 12.5 mg PO BID [facility] Cholecalciferol (Vitamin D3) 2,000 units PO DAILY [facility] Cyanocobalamin (Vitamin B12) 1,000 mcg PO BEDTIME [facility] Docusate Sodium (Colace) 100 mg PO DAILY [facility] Gabapentin (Neurontin) 300 mg PO BEDTIME PRN PRN Reason: NERVE PAIN Ibuprofen (Motrin) 400 mg PO Q6H PRN PRN Reason: Fever Last Admin: 03/02/18 16:15 Dose: 400 mg Insulin Aspart (Novolog Mix 70-30) 10 - 50 unit SUBCUT ASDIRECTED [facility] Lisinopril (Prinivil) 10 mg PO DAILY [facility] Multivitamins/Minerals/Vitamin C (Tab-A-Dre) 1 tab PO DAILY [facility] Cinnamon Bark [ Cinnamon] 500 Mg Owm Med 500 mg PO BID [facility] Vitamin A Palmitate [Vitamin A] 10,000 UnitOwn Med 10,000 unit PO DAILY [facility] Torsemide (Demadex) 20 mg PO BIDDIURETIC [facility] Last Admin: 03/02/18 15:32 Dose: 20 mg Labs: Laboratory Tests 03/02/18 03/02/18 Range/Units 10:35 10:35 WBC 17.5 H (5.0-10.0) 10^3/uL RBC 3.51 L (4.50-6.00) 10^6/uL Hgb 11.7 L (14.0-18.0) g/dL Hct 35.7 L (40.0-54.0) % MCV 101.7 H (82.0-94.0) fL MCH 33.3 H (27.0-32.0) pg MCHC 32.8 L (33.0-38.0) g/dL RDW Coeff of Sheron 14.8 (11.0-15.0) % Plt Count 141 L (150-400) 10^3/uL Add Manual Diff Yes Neutrophils % (Manual) 79 (35-85) % Band Neutrophils % 10 H (0-5) % Lymphocytes % (Manual) 6 L (21-55) % Monocytes % (Manual) 4 (2-12) % Eosinophils % (Manual) 1 (0-5) % Sodium 142 (136-145) mEq/L Potassium 4.3 (3.5-5.0) mEq/L Chloride 106 (98-106) mEq/L Carbon Dioxide 32 (21-32) mmol/L BUN 38 H (7-18) mg/dL Creatinine 1.7 H (0.7-1.3) mg/dL Est Cr Clr Drug Dosing 33.36 mL/min Estimated GFR (MDRD) 39 L (>=60) mL/min Glucose 143 H (75-99) mg/dL Calcium 9.2 (8.4-10.1) mg/dL Amylase 29 (25-115) U/L Meds: Medications Generic Name Dose Route Start Last Admin Trade Name Freq PRN Reason Stop Dose Admin Acetaminophen 650 mg 03/02/18 12:56 03/02/18 14:02 Tylenol PO 650 mg Q4H PRN Administration Fever Hydrocodone Bitart/Acetaminophen 1 tab 03/02/18 12:50 Eek 325-5 Mg PO Q6H PRN PAIN Albuterol 0 gm 03/02/18 12:43 Ventolin Hfa INH Q4H PRN DYSPNEA Albuterol 2.5 mg 03/02/18 16:00 Proventil Neb Soln INH QIDRT PRN SHORTNESS OF BREATH Amiodarone HCl 200 mg 03/03/18 08:00 Cordarone PO DAILY [facility] Ascorbic Acid 500 mg 03/03/18 08:00 Vitamin C PO DAILY [facility] Aspirin 325 mg 03/03/18 08:00 Ecotrin PO DAILY [facility] Carvedilol 12.5 mg 03/02/18 20:00 Coreg PO BID [facility] Cholecalciferol 2,000 units 03/03/18 08:00 Vitamin D3 PO DAILY [facility] Cyanocobalamin 1,000 mcg 03/02/18 20:00 Vitamin B12 PO BEDTIME [facility] Docusate Sodium 100 mg 03/03/18 08:00 Colace PO DAILY [facility] Gabapentin 300 mg 03/02/18 20:00 Neurontin PO BEDTIME PRN NERVE PAIN Ibuprofen 400 mg 03/02/18 15:57 03/02/18 16:15 Motrin PO 400 mg Q6H PRN Administration Fever Insulin Aspart 10 - 50 unit 03/02/18 13:45 Novolog Mix 70-30 SUBCUT ASDIRECTED [facility] Lisinopril 10 mg 03/03/18 08:00 Prinivil PO DAILY [facility] Multivitamins/Minerals/Vitamin C 1 tab 03/03/18 08:00 Tab-A-Dre PO DAILY [facility] Cinnamon Bark [ 500 mg 03/02/18 20:00 Cinnamon] 500 Mg PO Owm Med BID [facility] Vitamin A Palmitate 10,000 unit 03/03/18 08:00 [Vitamin A] 10,000 PO UnitOwn Med DAILY [facility] Torsemide 20 mg 03/02/18 16:00 03/02/18 15:32 Demadex PO 20 mg BIDDIURETIC [facility]OM Administration Departure - Departure Time of Disposition: 11:43 Disposition: Refer to Observation Condition: Good Clinical Impression: Leukocytosis - Discharge Information *PRESCRIPTION DRUG MONITORING PROGRAM REVIEWED*: Not Applicable *COPY OF PRESCRIPTION DRUG MONITORING REPORT IN PATIENT OWEN: Not Applicable - Problem List Review Problem List Initiated/Reviewed/Updated: Yes - My Orders Last 24 Hours: My Active Orders 03/02/18 10:31 UA W/MICROSCOPIC [URIN] Stat 03/02/18 10:35 LIPASE [REF] Stat 03/02/18 11:37 CXR [Chest 2V] [CR] Stat - Assessment/Plan Admission H&P: Please use this note as an admission H&P Last 24 Hours: My Active Orders 03/02/18 10:31 UA W/MICROSCOPIC [URIN] Stat 03/02/18 10:35 LIPASE [REF] Stat 03/02/18 11:37 CXR [Chest 2V] [CR] Stat Assessment:: leukocytosis unclear etiology. further labs pending. given the patients advanced age and extensive comorbidities, I will admit to observation for further care and workup.
[2018-03-02] MEDS ORDERED: Albuterol 8 GM Inhaler INH PRN (12:43)
[2018-03-02] MEDS: Acetaminophen 325 MG Tab PO PRN (14:02)
[2018-03-02] MEDS: TORSEMIDE 20 MG PO SCH (15:32)
[2018-03-02] MEDS ORDERED: Albuterol 0.083% 2.5 MG/3 ML Neb Soln INH PRN (16:00)
[2018-03-02] MEDS: Ibuprofen 200 MG Tab PO PRN (16:15)
[2018-03-02] MEDS: cefTRIAXone 1 GM Vial IVPUSH SCH (19:54)
[2018-03-02] MEDS: Carvedilol 12.5 MG Tab**OWN MED PO SCH (19:57)
[2018-03-02] MEDS: CINNAMON BARK 500 MG PO SCH (19:59)
[2018-03-02] MEDS: Cyanocobalamin (Vitamin B12) 1,000 MCG Tab PO SCH (19:59)
[2018-03-02] MEDS ORDERED: Gabapentin 300 MG Cap**OWN MED PO PRN (20:00)
[2018-03-02] MEDS: Insuln Aspart Prot/Insulin Aspart 100 Units/ML 3 ML FlexPen SUBCUT SCH (21:17)
[2018-03-03] MEDS: Acetaminophen 325 MG Tab PO PRN ×2 (01:44→17:26)
[2018-03-03] MEDS: Ibuprofen 200 MG Tab PO PRN ×2 (03:15→15:41)
[2018-03-03] MEDS: Insuln Aspart Prot/Insulin Aspart 100 Units/ML 3 ML FlexPen SUBCUT SCH ×4 (07:41→20:48)
[2018-03-03] MEDS: CINNAMON BARK 500 MG PO SCH ×2 (07:41→20:01)
[2018-03-03] MEDS: Carvedilol 12.5 MG Tab**OWN MED PO SCH ×2 (07:42→19:36)
[2018-03-03] MEDS: TORSEMIDE 20 MG PO SCH ×2 (07:42→15:31)
[2018-03-03] MEDS: Enoxaparin 40 MG/0.4 ML Syringe SUBCUT SCH (07:46)
[2018-03-03] MEDS: **PTOM** Lisinopril 10 MG Tab PO SCH (08:44)
[2018-03-03] MEDS: **PTOM** Docusate Sodium 100 MG Cap PO SCH (08:44)
[2018-03-03] MEDS: AMIODARONE 200 MG PO SCH (08:44)
[2018-03-03] MEDS: ASPIRIN 325 MG PO SCH (08:44)
[2018-03-03] MEDS: Ascorbic Acid 500 MG Tab PO SCH (08:47)
[2018-03-03] MEDS: Multivitamin Tab PO SCH (08:47)
[2018-03-03] MEDS: VITAMIN A PALMITATE 10000 UNIT PO SCH (08:47)
[2018-03-03] MEDS: Cholecalciferol (Vitamin D3) 1,000 Unit Tab PO SCH (08:47)
--- NOTE | 2018-03-03 10:20 | PCM.PN ---
- General Info Date of Service: 03/03/18 Functional Status: Reports: Pain Controlled, Tolerating Diet, Ambulating - Review of Systems General: Reports: Weakness, Fatigue. Denies: Fever HEENT: Reports: No Symptoms Pulmonary: Denies: Shortness of Breath, Cough Cardiovascular: Reports: Edema. Denies: Chest Pain, Lightheadedness Gastrointestinal: Denies: Abdominal Pain, Nausea, Vomiting Genitourinary: Reports: Frequency Musculoskeletal: Reports: Back Pain, Leg Pain Skin: Reports: No Symptoms Neurological: Reports: No Symptoms - Patient Data Vitals - Most Recent: Last Vital Signs Temp 97.8 F 03/03/18 07:39 Pulse 61 03/03/18 07:39 Resp 18 03/03/18 07:39 BP 134/48 L 03/03/18 07:39 Pulse Ox 94 L 03/03/18 07:39 Weight - Most Recent: 327 lb Lab Results Last 24 Hours: Laboratory Results - last 24 hr 03/02/18 03/02/18 03/02/18 Range/Units 10:31 10:35 10:35 WBC 17.5 H (5.0-10.0) 10^3/uL RBC 3.51 L (4.50-6.00) 10^6/uL Hgb 11.7 L (14.0-18.0) g/dL Hct 35.7 L (40.0-54.0) % MCV 101.7 H (82.0-94.0) fL MCH 33.3 H (27.0-32.0) pg MCHC 32.8 L (33.0-38.0) g/dL RDW Coeff of Sheron 14.8 (11.0-15.0) % Plt Count 141 L (150-400) 10^3/uL Neut % (Auto) (35-85) % Lymph % (Auto) (10-55) % [place] % (Auto) (0-16) % Eos % (Auto) (0-5) % Baso % (Auto) (0-3) % Neut # (Auto) (1.80-7.00) 10^3/uL Lymph # (Auto) (1.00-4.80) 10^3/uL [place] # (Auto) (0.00-0.80) 10^3/uL Eos # (Auto) (0.00-0.45) 10^3/uL Baso # (Auto) 10^3/uL Add Manual Diff Yes Neutrophils % (Manual) 79 (35-85) % Band Neutrophils % 10 H (0-5) % Lymphocytes % (Manual) 6 L (21-55) % Monocytes % (Manual) 4 (2-12) % Eosinophils % (Manual) 1 (0-5) % Sodium 142 (136-145) mEq/L Potassium 4.3 (3.5-5.0) mEq/L Chloride 106 (98-106) mEq/L Carbon Dioxide 32 (21-32) mmol/L BUN 38 H (7-18) mg/dL Creatinine 1.7 H (0.7-1.3) mg/dL Est Cr Clr Drug Dosing 33.36 mL/min Estimated GFR (MDRD) 39 L (>=60) mL/min Glucose 143 H (75-99) mg/dL POC Glucose (75-105) mg/dl Calcium 9.2 (8.4-10.1) mg/dL C-Reactive Protein (0.2-0.8) mg/dL Amylase 29 (25-115) U/L Urine Color Yellow (YELLOW) Urine Appearance Slightly cloudy (CLEAR) Urine pH 5.0 (4.5-8.0) Ur Specific [place] 1.020 (1.003-1.020) Urine Protein Trace H (NEGATIVE) mg/dL Urine Glucose (UA) Negative (NEGATIVE) mg/dL Urine Ketones Negative (NEGATIVE) mg/dL Urine Occult Blood Negative (NEGATIVE) Urine Nitrite Negative (NEGATIVE) Urine Bilirubin Negative (NEGATIVE) Urine Urobilinogen 0.2 (0.2-1.0) EU/dL Ur Leukocyte Esterase Moderate H (NEGATIVE) Urine RBC Not seen (0-5) /HPF Urine WBC 10-20 H (0-5) /HPF Ur Epithelial Cells Few H (NOT SEEN) /HPF Amorphous Sediment Moderate H (NOT SEEN) /HPF 03/02/18 03/02/18 03/02/18 Range/Units 12:15 17:05 20:45 WBC (5.0-10.0) 10^3/uL RBC (4.50-6.00) 10^6/uL Hgb (14.0-18.0) g/dL Hct (40.0-54.0) % MCV (82.0-94.0) fL MCH (27.0-32.0) pg MCHC (33.0-38.0) g/dL RDW Coeff of Sheron (11.0-15.0) % Plt Count (150-400) 10^3/uL Neut % (Auto) (35-85) % Lymph % (Auto) (10-55) % [place] % (Auto) (0-16) % Eos % (Auto) (0-5) % Baso % (Auto) (0-3) % Neut # (Auto) (1.80-7.00) 10^3/uL Lymph # (Auto) (1.00-4.80) 10^3/uL [place] # (Auto) (0.00-0.80) 10^3/uL Eos # (Auto) (0.00-0.45) 10^3/uL Baso # (Auto) 10^3/uL Add Manual Diff Neutrophils % (Manual) (35-85) % Band Neutrophils % (0-5) % Lymphocytes % (Manual) (21-55) % Monocytes % (Manual) (2-12) % Eosinophils % (Manual) (0-5) % Sodium (136-145) mEq/L Potassium (3.5-5.0) mEq/L Chloride (98-106) mEq/L Carbon Dioxide (21-32) mmol/L BUN (7-18) mg/dL Creatinine (0.7-1.3) mg/dL Est Cr Clr Drug Dosing mL/min Estimated GFR (MDRD) (>=60) mL/min Glucose (75-99) mg/dL POC Glucose 145 H 210 H 236 H (75-105) mg/dl Calcium (8.4-10.1) mg/dL C-Reactive Protein (0.2-0.8) mg/dL Amylase (25-115) U/L Urine Color (YELLOW) Urine Appearance (CLEAR) Urine pH (4.5-8.0) Ur Specific [place] (1.003-1.020) Urine Protein (NEGATIVE) mg/dL Urine Glucose (UA) (NEGATIVE) mg/dL Urine Ketones (NEGATIVE) mg/dL Urine Occult Blood (NEGATIVE) Urine Nitrite (NEGATIVE) Urine Bilirubin (NEGATIVE) Urine Urobilinogen (0.2-1.0) EU/dL Ur Leukocyte Esterase (NEGATIVE) Urine RBC (0-5) /HPF Urine WBC (0-5) /HPF Ur Epithelial Cells (NOT SEEN) /HPF Amorphous Sediment (NOT SEEN) /HPF 03/03/18 03/03/18 03/03/18 Range/Units 07:35 08:35 08:35 WBC 13.3 H (5.0-10.0) 10^3/uL RBC 3.54 L (4.50-6.00) 10^6/uL Hgb 11.4 L (14.0-18.0) g/dL Hct 36.8 L (40.0-54.0) % MCV 104.0 H (82.0-94.0) fL MCH 32.2 H (27.0-32.0) pg MCHC 31.0 L (33.0-38.0) g/dL RDW Coeff of Sheron 15.0 (11.0-15.0) % Plt Count 122 L (150-400) 10^3/uL Neut % (Auto) 86.4 H (35-85) % Lymph % (Auto) 7.8 L (10-55) % [place] % (Auto) 5.4 (0-16) % Eos % (Auto) 0.2 (0-5) % Baso % (Auto) 0.2 (0-3) % Neut # (Auto) 11.48 H (1.80-7.00) 10^3/uL Lymph # (Auto) 1.03 (1.00-4.80) 10^3/uL [place] # (Auto) 0.72 (0.00-0.80) 10^3/uL Eos # (Auto) 0.03 (0.00-0.45) 10^3/uL Baso # (Auto) 0.03 10^3/uL Add Manual Diff Neutrophils % (Manual) (35-85) % Band Neutrophils % (0-5) % Lymphocytes % (Manual) (21-55) % Monocytes % (Manual) (2-12) % Eosinophils % (Manual) (0-5) % Sodium 139 (136-145) mEq/L Potassium 4.3 (3.5-5.0) mEq/L Chloride 102 (98-106) mEq/L Carbon Dioxide 31 (21-32) mmol/L BUN 40 H (7-18) mg/dL Creatinine 1.8 H (0.7-1.3) mg/dL Est Cr Clr Drug Dosing 31.51 mL/min Estimated GFR (MDRD) 37 L (>=60) mL/min Glucose 228 H D (75-99) mg/dL POC Glucose 185 H (75-105) mg/dl Calcium 9.0 (8.4-10.1) mg/dL C-Reactive Protein 24.5 H (0.2-0.8) mg/dL Amylase (25-115) U/L Urine Color (YELLOW) Urine Appearance (CLEAR) Urine pH (4.5-8.0) Ur Specific [place] (1.003-1.020) Urine Protein (NEGATIVE) mg/dL Urine Glucose (UA) (NEGATIVE) mg/dL Urine Ketones (NEGATIVE) mg/dL Urine Occult Blood (NEGATIVE) Urine Nitrite (NEGATIVE) Urine Bilirubin (NEGATIVE) Urine Urobilinogen (0.2-1.0) EU/dL Ur Leukocyte Esterase (NEGATIVE) Urine RBC (0-5) /HPF Urine WBC (0-5) /HPF Ur Epithelial Cells (NOT SEEN) /HPF Amorphous Sediment (NOT SEEN) /HPF Med Orders - Current: Current Medications Acetaminophen (Tylenol) 650 mg PO Q4H PRN PRN Reason: Fever Last Admin: 03/03/18 01:44 Dose: 650 mg Hydrocodone Bitart/Acetaminophen ([place] 325-5 Mg) 1 tab PO Q6H PRN PRN Reason: PAIN Albuterol (Ventolin Hfa) 0 gm INH Q4H PRN PRN Reason: DYSPNEA Albuterol (Proventil Neb Soln) 2.5 mg INH QIDRT PRN PRN Reason: SHORTNESS OF BREATH Amiodarone HCl (Cordarone) 200 mg PO DAILY [facility] Last Admin: 03/03/18 08:44 Dose: 200 mg Ascorbic Acid (Vitamin C) 500 mg PO DAILY [facility] Last Admin: 03/03/18 08:47 Dose: Not Given Aspirin (Ecotrin) 325 mg PO DAILY [facility] Last Admin: 03/03/18 08:44 Dose: 325 mg Carvedilol (Coreg) 12.5 mg PO BID [facility] Last Admin: 03/03/18 07:42 Dose: 12.5 mg Ceftriaxone Sodium (Rocephin) 1 gm IVPUSH Q24H [facility] Stop: 03/05/18 23:59 Last Admin: 03/02/18 19:54 Dose: 1 gm Cholecalciferol (Vitamin D3) 2,000 units PO DAILY [facility] Last Admin: 03/03/18 08:47 Dose: Not Given Cyanocobalamin (Vitamin B12) 1,000 mcg PO BEDTIME [facility] Last Admin: 03/02/18 19:59 Dose: Not Given Docusate Sodium (Colace) 100 mg PO DAILY [facility] Last Admin: 03/03/18 08:44 Dose: 100 mg Enoxaparin Sodium (Lovenox) 40 mg SUBCUT Q24H [facility] Last Admin: 03/03/18 07:46 Dose: 40 mg Gabapentin (Neurontin) 300 mg PO BEDTIME PRN PRN Reason: NERVE PAIN Ibuprofen (Motrin) 400 mg PO Q6H PRN PRN Reason: Fever Last Admin: 03/03/18 03:15 Dose: 400 mg Insulin Aspart (Novolog Mix 70-30) 10 - 50 unit SUBCUT ASDIRECTED [facility] Last Admin: 03/03/18 07:41 Dose: 40 unit Lisinopril (Prinivil) 10 mg PO DAILY [facility] Last Admin: 03/03/18 08:44 Dose: 10 mg Multivitamins/Minerals/Vitamin C (Tab-A-Dre) 1 tab PO DAILY [facility] Last Admin: 03/03/18 08:47 Dose: Not Given Cinnamon Bark [ Cinnamon] 500 Mg Owm Med 500 mg PO BID [facility] Last Admin: 03/03/18 07:41 Dose: Not Given Vitamin A Palmitate [Vitamin A] 10,000 UnitOwn Med 10,000 unit PO DAILY [facility] Last Admin: 03/03/18 08:47 Dose: Not Given Torsemide (Demadex) 20 mg PO BIDDIURETIC [facility] Last Admin: 03/03/18 07:42 Dose: 20 mg - Exam General: Alert, Oriented HEENT: Mucous Membr. Moist/[place] Neck: Supple Lungs: Clear to Auscultation, Normal Respiratory Effort Cardiovascular: Regular Rate, Regular Rhythm GI/Abdominal Exam: Normal Bowel Sounds, Soft, Non-Tender Extremities: Pedal Edema Skin: Warm, Dry Neurological: No New Focal Deficit - Problem List & Annotations (1) UTI (urinary tract infection) SNOMED Code(s): 52234184 Code(s): N39.0 - URINARY TRACT INFECTION, SITE NOT SPECIFIED Status: Acute Priority: High Current Visit: Yes (2) Leukocytosis SNOMED Code(s): 621479841, 052420731 Code(s): D72.829 - ELEVATED WHITE BLOOD CELL COUNT, UNSPECIFIED Status: Acute Priority: High Current Visit: Yes - Problem List Review Problem List Initiated/Reviewed/Updated: Yes - My Orders Last 24 Hours: My Active Orders 03/03/18 09:13 Consult to Physical Therapy [PT Evaluation and Treatment] [CONS] Routine - Assessment Assessment:: UTI Leucocytosis - Plan Plan:: Patient is doing well today. Up to chair for breakfast. When asked if has abdominal pain, states "didn't roll over during the night so not sure". Urine did show moderate leucocytosis but also sediment and epithelial cells. Is currently on Rocephin. WBC count today 17.5, 10% bands noted. Creatinine 1.7. Is ambulating with walker and stand by assist. Will continue with Rocephin. Physical therapy to ambulate with patient. Possible discharge home tomorrow.
[2018-03-03] MEDS: cefTRIAXone 1 GM Vial IVPUSH SCH (19:35)
[2018-03-03] MEDS: Cyanocobalamin (Vitamin B12) 1,000 MCG Tab PO SCH (20:02)
[2018-03-03] MEDS: Clindamycin Phosphate in D5W 300 MG in Premix Bag 1 BAG IV SCH ×2 (20:49)
[2018-03-04] MEDS: Clindamycin Phosphate in D5W 300 MG in Premix Bag 1 BAG IV SCH ×8 (02:35→20:58)
[2018-03-04] MEDS: Ibuprofen 200 MG Tab PO PRN ×2 (05:39→14:25)
[2018-03-04] MEDS: **PTOM** Lisinopril 10 MG Tab PO SCH (07:49)
[2018-03-04] MEDS: AMIODARONE 200 MG PO SCH (07:49)
[2018-03-04] MEDS: Multivitamin Tab PO SCH (07:49)
[2018-03-04] MEDS: Carvedilol 12.5 MG Tab**OWN MED PO SCH ×2 (07:49→19:39)
[2018-03-04] MEDS: Enoxaparin 40 MG/0.4 ML Syringe SUBCUT SCH (07:49)
[2018-03-04] MEDS: TORSEMIDE 20 MG PO SCH ×2 (07:49→15:34)
[2018-03-04] MEDS: **PTOM** Docusate Sodium 100 MG Cap PO SCH (07:49)
[2018-03-04] MEDS: ASPIRIN 325 MG PO SCH (07:50)
[2018-03-04] MEDS: Cholecalciferol (Vitamin D3) 1,000 Unit Tab PO SCH (07:50)
[2018-03-04] MEDS: VITAMIN A PALMITATE 10000 UNIT PO SCH (07:50)
[2018-03-04] MEDS: CINNAMON BARK 500 MG PO SCH ×2 (07:50→19:40)
[2018-03-04] MEDS: Ascorbic Acid 500 MG Tab PO SCH (07:50)
[2018-03-04] MEDS: Insuln Aspart Prot/Insulin Aspart 100 Units/ML 3 ML FlexPen SUBCUT SCH ×4 (08:04→20:59)
[2018-03-04] MEDS: Cyanocobalamin (Vitamin B12) 1,000 MCG Tab PO SCH (19:39)
--- NOTE | 2018-03-04 20:35 | PCM.PN ---
- General Info Date of Service: 03/04/18 Admission Dx/Problem (Free Text): Leucocytosis Functional Status: Reports: Pain Controlled, Tolerating Diet. Denies: Ambulating - Review of Systems General: Reports: Fever, Weakness, Fatigue HEENT: Reports: No Symptoms Pulmonary: Reports: Shortness of Breath. Denies: Cough Cardiovascular: Reports: Edema. Denies: Chest Pain, Lightheadedness Gastrointestinal: Denies: Abdominal Pain, Nausea, Vomiting Skin: Reports: Other (right leg redness) Neurological: Reports: No Symptoms - Patient Data Vitals - Most Recent: Last Vital Signs Temp 99.4 F 03/04/18 20:00 Pulse 60 03/04/18 20:00 Resp 18 03/04/18 20:00 BP 137/57 L 03/04/18 20:00 Pulse Ox 94 L 03/04/18 20:00 Weight - Most Recent: 327 lb I&O - Last 24 Hours: Intake & Output 03/04/18 03/04/18 03/04/18 06:59 14:59 22:59 Intake Total 50 50 Balance 50 50 Lab Results Last 24 Hours: Laboratory Results - last 24 hr 03/02/18 03/03/18 03/04/18 Range/Units 10:35 20:34 07:32 WBC (5.0-10.0) 10^3/uL RBC (4.50-6.00) 10^6/uL Hgb (14.0-18.0) g/dL Hct (40.0-54.0) % MCV (82.0-94.0) fL MCH (27.0-32.0) pg MCHC (33.0-38.0) g/dL RDW Coeff of Sheron (11.0-15.0) % Plt Count (150-400) 10^3/uL Neut % (Auto) (35-85) % Lymph % (Auto) (10-55) % [place] % (Auto) (0-16) % Eos % (Auto) (0-5) % Baso % (Auto) (0-3) % Neut # (Auto) (1.80-7.00) 10^3/uL Lymph # (Auto) (1.00-4.80) 10^3/uL [place] # (Auto) (0.00-0.80) 10^3/uL Eos # (Auto) (0.00-0.45) 10^3/uL Baso # (Auto) 10^3/uL Sodium (136-145) mEq/L Potassium (3.5-5.0) mEq/L Chloride (98-106) mEq/L Carbon Dioxide (21-32) mmol/L BUN (7-18) mg/dL Creatinine (0.7-1.3) mg/dL Est Cr Clr Drug Dosing mL/min Estimated GFR (MDRD) (>=60) mL/min Glucose (75-99) mg/dL POC Glucose 161 H 135 H (75-105) mg/dl Calcium (8.4-10.1) mg/dL C-Reactive Protein (0.2-0.8) mg/dL Lipase 9 L (11-82) U/L 03/04/18 03/04/18 03/04/18 Range/Units 08:50 08:50 12:00 WBC 12.1 H (5.0-10.0) 10^3/uL RBC 3.43 L (4.50-6.00) 10^6/uL Hgb 11.2 L (14.0-18.0) g/dL Hct 35.4 L (40.0-54.0) % MCV 103.2 H (82.0-94.0) fL MCH 32.7 H (27.0-32.0) pg MCHC 31.6 L (33.0-38.0) g/dL RDW Coeff of Sheron 14.9 (11.0-15.0) % Plt Count 122 L (150-400) 10^3/uL Neut % (Auto) 85.6 H (35-85) % Lymph % (Auto) 6.8 L (10-55) % [place] % (Auto) 6.7 (0-16) % Eos % (Auto) 0.7 (0-5) % Baso % (Auto) 0.2 (0-3) % Neut # (Auto) 10.31 H (1.80-7.00) 10^3/uL Lymph # (Auto) 0.82 L (1.00-4.80) 10^3/uL [place] # (Auto) 0.81 H (0.00-0.80) 10^3/uL Eos # (Auto) 0.09 (0.00-0.45) 10^3/uL Baso # (Auto) 0.03 10^3/uL Sodium 140 (136-145) mEq/L Potassium 3.9 (3.5-5.0) mEq/L Chloride 104 (98-106) mEq/L Carbon Dioxide 29 (21-32) mmol/L BUN 39 H (7-18) mg/dL Creatinine 1.6 H (0.7-1.3) mg/dL Est Cr Clr Drug Dosing 35.44 mL/min Estimated GFR (MDRD) 42 L (>=60) mL/min Glucose 200 H (75-99) mg/dL POC Glucose 207 H (75-105) mg/dl Calcium 9.1 (8.4-10.1) mg/dL C-Reactive Protein 28.2 H (0.2-0.8) mg/dL Lipase (11-82) U/L 03/04/18 Range/Units 17:31 WBC (5.0-10.0) 10^3/uL RBC (4.50-6.00) 10^6/uL Hgb (14.0-18.0) g/dL Hct (40.0-54.0) % MCV (82.0-94.0) fL MCH (27.0-32.0) pg MCHC (33.0-38.0) g/dL RDW Coeff of Sheron (11.0-15.0) % Plt Count (150-400) 10^3/uL Neut % (Auto) (35-85) % Lymph % (Auto) (10-55) % [place] % (Auto) (0-16) % Eos % (Auto) (0-5) % Baso % (Auto) (0-3) % Neut # (Auto) (1.80-7.00) 10^3/uL Lymph # (Auto) (1.00-4.80) 10^3/uL [place] # (Auto) (0.00-0.80) 10^3/uL Eos # (Auto) (0.00-0.45) 10^3/uL Baso # (Auto) 10^3/uL Sodium (136-145) mEq/L Potassium (3.5-5.0) mEq/L Chloride (98-106) mEq/L Carbon Dioxide (21-32) mmol/L BUN (7-18) mg/dL Creatinine (0.7-1.3) mg/dL Est Cr Clr Drug Dosing mL/min Estimated GFR (MDRD) (>=60) mL/min Glucose (75-99) mg/dL POC Glucose 194 H (75-105) mg/dl Calcium (8.4-10.1) mg/dL C-Reactive Protein (0.2-0.8) mg/dL Lipase (11-82) U/L [place]iden Results Last 24 Hours: Microbiology 03/03/18 18:08 Urine Culture - Preliminary Urine, Clean Catch NO GROWTH AFTER 1 DAY Med Orders - Current: Current Medications Acetaminophen (Tylenol) 650 mg PO Q4H PRN PRN Reason: Fever Last Admin: 03/03/18 17:26 Dose: 650 mg Hydrocodone Bitart/Acetaminophen ([place] 325-5 Mg) 1 tab PO Q6H PRN PRN Reason: PAIN Albuterol (Ventolin Hfa) 0 gm INH Q4H PRN PRN Reason: DYSPNEA Albuterol (Proventil Neb Soln) 2.5 mg INH QIDRT PRN PRN Reason: SHORTNESS OF BREATH Amiodarone HCl (Cordarone) 200 mg PO DAILY [facility] Last Admin: 03/04/18 07:49 Dose: 200 mg Ascorbic Acid (Vitamin C) 500 mg PO DAILY [facility] Last Admin: 03/04/18 07:50 Dose: 500 mg Aspirin (Ecotrin) 325 mg PO DAILY [facility] Last Admin: 03/04/18 07:50 Dose: 325 mg Carvedilol (Coreg) 12.5 mg PO BID [facility] Last Admin: 03/04/18 19:39 Dose: 12.5 mg Cholecalciferol (Vitamin D3) 2,000 units PO DAILY [facility] Last Admin: 03/04/18 07:50 Dose: 2,000 units Cyanocobalamin (Vitamin B12) 1,000 mcg PO BEDTIME [facility] Last Admin: 03/04/18 19:39 Dose: 1,000 mcg Docusate Sodium (Colace) 100 mg PO DAILY [facility] Last Admin: 03/04/18 07:49 Dose: 100 mg Enoxaparin Sodium (Lovenox) 40 mg SUBCUT Q24H [facility] Last Admin: 03/04/18 07:49 Dose: 40 mg Gabapentin (Neurontin) 300 mg PO BEDTIME PRN PRN Reason: NERVE PAIN Clindamycin Phosphate 300 mg/ (Premix) 50 mls @ 100 mls/hr IV Q6H [facility] Last Admin: 03/04/18 14:26 Dose: 100 mls/hr Ibuprofen (Motrin) 400 mg PO Q6H PRN PRN Reason: Fever Last Admin: 03/04/18 14:25 Dose: 400 mg Insulin Aspart (Novolog Mix 70-30) 10 - 50 unit SUBCUT ASDIRECTED [facility] Last Admin: 03/04/18 17:42 Dose: 50 unit Lisinopril (Prinivil) 10 mg PO DAILY [facility] Last Admin: 03/04/18 07:49 Dose: 10 mg Multivitamins/Minerals/Vitamin C (Tab-A-Dre) 1 tab PO DAILY [facility] Last Admin: 03/04/18 07:49 Dose: 1 tab Cinnamon Bark [ Cinnamon] 500 Mg Owm Med 500 mg PO BID [facility] Last Admin: 03/04/18 19:40 Dose: Not Given Vitamin A Palmitate [Vitamin A] 10,000 UnitOwn Med 10,000 unit PO DAILY [facility] Last Admin: 03/04/18 07:50 Dose: Not Given Torsemide (Demadex) 20 mg PO BIDDIURETIC [facility] Last Admin: 03/04/18 15:34 Dose: 20 mg Discontinued Medications Ceftriaxone Sodium (Rocephin) 1 gm IVPUSH Q24H [facility] Stop: 03/05/18 23:59 Last Admin: 03/03/18 19:35 Dose: 1 gm - Problem List & Annotations (1) UTI (urinary tract infection) SNOMED Code(s): 79924438 Code(s): N39.0 - URINARY TRACT INFECTION, SITE NOT SPECIFIED Status: Ruled- out Priority: High Current Visit: Yes (2) Leukocytosis SNOMED Code(s): 941760716, 787290250 Code(s): D72.829 - ELEVATED WHITE BLOOD CELL COUNT, UNSPECIFIED Status: Acute Priority: High Current Visit: Yes (3) Cellulitis SNOMED Code(s): 794062046 Code(s): L03.90 - CELLULITIS, UNSPECIFIED Status: Acute Current Visit: Yes Qualifiers: Site of cellulitis: extremity Site of cellulitis of extremity: lower extremity Laterality: right Qualified Code(s): L03.115 - Cellulitis of right lower limb - Problem List Review Problem List Initiated/Reviewed/Updated: Yes - My Orders Last 24 Hours: My Active Orders 03/03/18 20:12 Blood Culture x2 Reflex Set [OM.PC] Stat 03/03/18 20:25 CULTURE BLOOD [BC] Stat 03/03/18 20:30 CULTURE BLOOD [BC] Stat 03/03/18 21:00 Clindamycin Phosphate in D5W [Cleocin in D5W] 300 mg Premix Bag 1 bag IV Q6H - Assessment Assessment:: UTI Leucocytosis - Plan Plan:: Patient is doing well today. Up to chair for breakfast. When asked if has abdominal pain, states "didn't roll over during the night so not sure". Urine did show moderate leucocytosis but also sediment and epithelial cells. Is currently on Rocephin. WBC count today 17.5, 10% bands noted. Creatinine 1.7. Is ambulating with walker and stand by assist. Will continue with Rocephin. Physical therapy to ambulate with patient. Possible discharge home tomorrow. 03-04-2018 Patient spiked a fever yesterday afternoon to 103.3. Was very weak during this time, unable to bear weight or transfer without using ez-stand and assist of staff. Switched to inpatient at that time. Is better today, strength improved while afebrile. Did repeat urine last evening as culture not obtained with first collection. Urine now essentially negative. Blood cultures obtained. Right leg noted to be more red, warm and swollen than earlier in the day so switched Rocephin to CLeocin for better coverage for cellulitis. Labs improved this am. WBC down to 12.1, CRP increased to 28.2. Hemoglobin stable. Will continue with IV Cleocin. Physical therapy. Repeat labs in am.
[2018-03-04] MEDS: Acetaminophen/HYDROcodone 325-5 MG Tab**OWN MED PO PRN (22:05)
[2018-03-05] MEDS: Clindamycin Phosphate in D5W 300 MG in Premix Bag 1 BAG IV SCH ×8 (03:00→21:29)
[2018-03-05] MEDS: ASPIRIN 325 MG PO SCH (08:07)
[2018-03-05] MEDS: TORSEMIDE 20 MG PO SCH ×2 (08:07→15:33)
[2018-03-05] MEDS: Carvedilol 12.5 MG Tab**OWN MED PO SCH ×2 (08:08→19:23)
[2018-03-05] MEDS: AMIODARONE 200 MG PO SCH (08:08)
[2018-03-05] MEDS: **PTOM** Lisinopril 10 MG Tab PO SCH (08:08)
[2018-03-05] MEDS: **PTOM** Docusate Sodium 100 MG Cap PO SCH (08:08)
[2018-03-05] MEDS: Enoxaparin 40 MG/0.4 ML Syringe SUBCUT SCH (08:08)
[2018-03-05] MEDS: Ascorbic Acid 500 MG Tab PO SCH (08:08)
[2018-03-05] MEDS: Cholecalciferol (Vitamin D3) 1,000 Unit Tab PO SCH (08:08)
[2018-03-05] MEDS: Multivitamin Tab PO SCH (08:08)
[2018-03-05] MEDS: Insuln Aspart Prot/Insulin Aspart 100 Units/ML 3 ML FlexPen SUBCUT SCH ×4 (08:09→21:29)
[2018-03-05] MEDS: CINNAMON BARK 500 MG PO SCH ×2 (08:17→19:24)
[2018-03-05] MEDS: VITAMIN A PALMITATE 10000 UNIT PO SCH (08:18)
[2018-03-05] MEDS: Acetaminophen/HYDROcodone 325-5 MG Tab**OWN MED PO PRN ×2 (11:33→23:53)
--- NOTE | 2018-03-05 14:28 | PCM.PN ---
- General Info Date of Service: 03/05/18 Admission Dx/Problem (Free Text): Leucocytosis Functional Status: Reports: Pain Controlled, Tolerating Diet, Ambulating - Review of Systems General: Reports: Malaise. Denies: Fever, Weakness, Fatigue HEENT: Reports: No Symptoms Pulmonary: Reports: Shortness of Breath. Denies: Cough Cardiovascular: Reports: Edema. Denies: Chest Pain, Lightheadedness Gastrointestinal: Denies: Abdominal Pain, Decreased Appetite, Nausea, Vomiting Genitourinary: Reports: No Symptoms Musculoskeletal: Reports: Leg Pain Skin: Reports: Other (redness to leg) Neurological: Reports: No Symptoms - Patient Data Vitals - Most Recent: Last Vital Signs Temp 97.5 F 03/05/18 11:38 Pulse 68 03/05/18 11:38 Resp 18 03/05/18 11:38 BP 115/93 H 03/05/18 11:38 Pulse Ox 94 L 03/05/18 11:38 Weight - Most Recent: 327 lb I&O - Last 24 Hours: Intake & Output 03/04/18 03/05/18 03/05/18 22:59 06:59 14:59 Intake Total 50 50 Balance 50 50 Lab Results Last 24 Hours: Laboratory Results - last 24 hr 03/04/18 03/04/18 03/05/18 Range/Units 17:31 20:53 07:30 WBC (5.0-10.0) 10^3/uL RBC (4.50-6.00) 10^6/uL Hgb (14.0-18.0) g/dL Hct (40.0-54.0) % MCV (82.0-94.0) fL MCH (27.0-32.0) pg MCHC (33.0-38.0) g/dL RDW Coeff of Sheron (11.0-15.0) % Plt Count (150-400) 10^3/uL Neut % (Auto) (35-85) % Lymph % (Auto) (10-55) % [place] % (Auto) (0-16) % Eos % (Auto) (0-5) % Baso % (Auto) (0-3) % Neut # (Auto) (1.80-7.00) 10^3/uL Lymph # (Auto) (1.00-4.80) 10^3/uL [place] # (Auto) (0.00-0.80) 10^3/uL Eos # (Auto) (0.00-0.45) 10^3/uL Baso # (Auto) 10^3/uL Sodium (136-145) mEq/L Potassium (3.5-5.0) mEq/L Chloride (98-106) mEq/L Carbon Dioxide (21-32) mmol/L BUN (7-18) mg/dL Creatinine (0.7-1.3) mg/dL Est Cr Clr Drug Dosing mL/min Estimated GFR (MDRD) (>=60) mL/min Glucose (75-99) mg/dL POC Glucose 194 H 216 H 85 (75-105) mg/dl Calcium (8.4-10.1) mg/dL C-Reactive Protein (0.2-0.8) mg/dL 03/05/18 03/05/18 03/05/18 Range/Units 08:30 08:30 11:35 WBC 9.7 (5.0-10.0) 10^3/uL RBC 3.34 L (4.50-6.00) 10^6/uL Hgb 10.8 L (14.0-18.0) g/dL Hct 34.6 L (40.0-54.0) % MCV 103.6 H (82.0-94.0) fL MCH 32.3 H (27.0-32.0) pg MCHC 31.2 L (33.0-38.0) g/dL RDW Coeff of Sheron 14.8 (11.0-15.0) % Plt Count 125 L (150-400) 10^3/uL Neut % (Auto) 75.0 (35-85) % Lymph % (Auto) 12.8 (10-55) % [place] % (Auto) 10.2 (0-16) % Eos % (Auto) 1.6 (0-5) % Baso % (Auto) 0.4 (0-3) % Neut # (Auto) 7.28 H (1.80-7.00) 10^3/uL Lymph # (Auto) 1.24 (1.00-4.80) 10^3/uL [place] # (Auto) 0.99 H (0.00-0.80) 10^3/uL Eos # (Auto) 0.16 (0.00-0.45) 10^3/uL Baso # (Auto) 0.04 10^3/uL Sodium 141 (136-145) mEq/L Potassium 4.0 (3.5-5.0) mEq/L Chloride 105 (98-106) mEq/L Carbon Dioxide 30 (21-32) mmol/L BUN 36 H (7-18) mg/dL Creatinine 1.6 H (0.7-1.3) mg/dL Est Cr Clr Drug Dosing 35.44 mL/min Estimated GFR (MDRD) 42 L (>=60) mL/min Glucose 126 H D (75-99) mg/dL POC Glucose 167 H (75-105) mg/dl Calcium 8.9 (8.4-10.1) mg/dL C-Reactive Protein 32.9 H (0.2-0.8) mg/dL [place] Results Last 24 Hours: Microbiology 03/03/18 18:08 Urine Culture - Final Urine, Clean Catch NO GROWTH AFTER 2 DAYS 03/03/18 20:30 Aerobic Blood Culture - Preliminary Blood - Venous - Lab Draw NO GROWTH AFTER 1 DAY Anaerobic Blood Culture - Preliminary NO GROWTH AFTER 1 DAY 03/03/18 20:25 Aerobic Blood Culture - Preliminary Blood - Venous NO GROWTH AFTER 1 DAY Anaerobic Blood Culture - Preliminary NO GROWTH AFTER 1 DAY Med Orders - Current: Current Medications Acetaminophen (Tylenol) 650 mg PO Q4H PRN PRN Reason: Fever Last Admin: 03/03/18 17:26 Dose: 650 mg Hydrocodone Bitart/Acetaminophen ([place] 325-5 Mg) 1 tab PO Q6H PRN PRN Reason: PAIN Last Admin: 03/05/18 11:33 Dose: 1 tab Albuterol (Ventolin Hfa) 0 gm INH Q4H PRN PRN Reason: DYSPNEA Albuterol (Proventil Neb Soln) 2.5 mg INH QIDRT PRN PRN Reason: SHORTNESS OF BREATH Amiodarone HCl (Cordarone) 200 mg PO DAILY [facility] Last Admin: 03/05/18 08:08 Dose: 200 mg Ascorbic Acid (Vitamin C) 500 mg PO DAILY [facility] Last Admin: 03/05/18 08:08 Dose: 500 mg Aspirin (Ecotrin) 325 mg PO DAILY [facility] Last Admin: 03/05/18 08:07 Dose: 325 mg Carvedilol (Coreg) 12.5 mg PO BID [facility] Last Admin: 03/05/18 08:08 Dose: 12.5 mg Cholecalciferol (Vitamin D3) 2,000 units PO DAILY [facility] Last Admin: 03/05/18 08:08 Dose: 2,000 units Cyanocobalamin (Vitamin B12) 1,000 mcg PO BEDTIME [facility] Last Admin: 03/04/18 19:39 Dose: 1,000 mcg Docusate Sodium (Colace) 100 mg PO DAILY [facility] Last Admin: 03/05/18 08:08 Dose: 100 mg Enoxaparin Sodium (Lovenox) 40 mg SUBCUT Q24H [facility] Last Admin: 03/05/18 08:08 Dose: 40 mg Gabapentin (Neurontin) 300 mg PO BEDTIME PRN PRN Reason: NERVE PAIN Clindamycin Phosphate 300 mg/ (Premix) 50 mls @ 100 mls/hr IV Q6H [facility] Last Admin: 03/05/18 08:19 Dose: 100 mls/hr Ibuprofen (Motrin) 400 mg PO Q6H PRN PRN Reason: Fever Last Admin: 03/04/18 14:25 Dose: 400 mg Insulin Aspart (Novolog Mix 70-30) 10 - 50 unit SUBCUT ASDIRECTED [facility] Last Admin: 03/05/18 11:53 Dose: 40 unit Lisinopril (Prinivil) 10 mg PO DAILY [facility] Last Admin: 03/05/18 08:08 Dose: 10 mg Multivitamins/Minerals/Vitamin C (Tab-A-Dre) 1 tab PO DAILY [facility] Last Admin: 03/05/18 08:08 Dose: 1 tab Cinnamon Bark [ Cinnamon] 500 Mg Owm Med 500 mg PO BID [facility] Last Admin: 03/05/18 08:17 Dose: Not Given Vitamin A Palmitate [Vitamin A] 10,000 UnitOwn Med 10,000 unit PO DAILY [facility] Last Admin: 03/05/18 08:18 Dose: Not Given Torsemide (Demadex) 20 mg PO BIDDIURETIC [facility] Last Admin: 03/05/18 08:07 Dose: 20 mg Discontinued Medications Ceftriaxone Sodium (Rocephin) 1 gm IVPUSH Q24H [facility] Stop: 03/05/18 23:59 Last Admin: 03/03/18 19:35 Dose: 1 gm - Exam General: Alert, Oriented HEENT: Mucous Membr. Moist/[place] Neck: Supple Lungs: Clear to Auscultation, Normal Respiratory Effort Cardiovascular: Regular Rate, Regular Rhythm GI/Abdominal Exam: Normal Bowel Sounds, Soft, Non-Tender Skin: Other (redness and warmth has improved in RLE, more the usual mario color from venous stasis now. ) Neurological: No New Focal Deficit - Problem List & Annotations (1) Leukocytosis SNOMED Code(s): 790837270, 126196597 Code(s): D72.829 - ELEVATED WHITE BLOOD CELL COUNT, UNSPECIFIED Status: Acute Priority: High Current Visit: Yes (2) Cellulitis SNOMED Code(s): 868704593 Code(s): L03.90 - CELLULITIS, UNSPECIFIED Status: Acute Priority: High Current Visit: Yes Qualifiers: Site of cellulitis: extremity Site of cellulitis of extremity: lower extremity Laterality: right Qualified Code(s): L03.115 - Cellulitis of right lower limb - Problem List Review Problem List Initiated/Reviewed/Updated: Yes - Assessment Assessment:: UTI Leucocytosis - Plan Plan:: Patient is doing well today. Up to chair for breakfast. When asked if has abdominal pain, states "didn't roll over during the night so not sure". Urine did show moderate leucocytosis but also sediment and epithelial cells. Is currently on Rocephin. WBC count today 17.5, 10% bands noted. Creatinine 1.7. Is ambulating with walker and stand by assist. Will continue with Rocephin. Physical therapy to ambulate with patient. Possible discharge home tomorrow. 03-04-2018 Patient spiked a fever yesterday afternoon to 103.3. Was very weak during this time, unable to bear weight or transfer without using ez-stand and assist of staff. Switched to inpatient at that time. Is better today, strength improved while afebrile. Did repeat urine last evening as culture not obtained with first collection. Urine now essentially negative. Blood cultures obtained. Right leg noted to be more red, warm and swollen than earlier in the day so switched Rocephin to CLeocin for better coverage for cellulitis. Labs improved this am. WBC down to 12.1, CRP increased to 28.2. Hemoglobin stable. Will continue with IV Cleocin. Physical therapy. Repeat labs in am. 03-05-2018 Patient continues to improve. RLE is noted to have less redness and warmth. Does have chronic venous stasis changes present but redness has improved. Edema 2+. Less tender. Patient is ambulating to bathroom and short distances, feels his strength is returning back to his usual state. Urine culture completed is negative. Preliminary blood cultures negative thus far. WBC is better now at 9.7 but CRP has increased to 32. Will continue with IV Cleocin. Therapy. Possible discharge home tomorrow.
[2018-03-05] MEDS: Cyanocobalamin (Vitamin B12) 1,000 MCG Tab PO SCH (19:23)
[2018-03-06] MEDS: Clindamycin Phosphate in D5W 300 MG in Premix Bag 1 BAG IV SCH ×4 (02:58→08:41)
[2018-03-06] MEDS: Multivitamin Tab PO SCH (07:33)
[2018-03-06] MEDS: Enoxaparin 40 MG/0.4 ML Syringe SUBCUT SCH (07:33)
[2018-03-06] MEDS: Ascorbic Acid 500 MG Tab PO SCH (07:33)
[2018-03-06] MEDS: Carvedilol 12.5 MG Tab**OWN MED PO SCH (07:33)
[2018-03-06] MEDS: CINNAMON BARK 500 MG PO SCH (07:33)
[2018-03-06] MEDS: **PTOM** Lisinopril 10 MG Tab PO SCH (07:33)
[2018-03-06] MEDS: Cholecalciferol (Vitamin D3) 1,000 Unit Tab PO SCH (07:33)
[2018-03-06] MEDS: **PTOM** Docusate Sodium 100 MG Cap PO SCH (07:33)
[2018-03-06] MEDS: ASPIRIN 325 MG PO SCH (07:33)
[2018-03-06] MEDS: AMIODARONE 200 MG PO SCH (07:33)
[2018-03-06] MEDS: TORSEMIDE 20 MG PO SCH (07:33)
[2018-03-06] MEDS: VITAMIN A PALMITATE 10000 UNIT PO SCH (07:34)
[2018-03-06 11:43] VITALS: BP 122/71
--- NOTE | 2018-03-06 14:28 | PCM.DCSUM1 ---
Discharge Summary - Hospital Course Free Text/Narrative:: Patient presented to ER on the weekend with weakness, fall and abdominal pain. He related that he has been experiencing abdominal pain since he had his gallbladder out in October. Mostly notes he has pain with rolling on his right side. Initial labs in the ER showed leukocytosis, UA showed moderate leukocytes. WBC was 17.4. Creatinine 1.7. Admitted to observation and started on IV Rocephin and IV fluids. Diagnosis: Stroke: No Modified Dakota Scale: No Symptoms at All Modified Dakota Scale Score: 0 - Discharge Data Discharge Date: 03/06/18 Discharge Disposition: Home, Self-Care 01 Condition: Fair - Discharge Diagnosis/Problem(s) (1) Leukocytosis SNOMED Code(s): 819591272, 922527142 ICD Code: D72.829 - ELEVATED WHITE BLOOD CELL COUNT, UNSPECIFIED Status: Acute Priority: High (2) Cellulitis SNOMED Code(s): 482538664 ICD Code: L03.90 - CELLULITIS, UNSPECIFIED Status: Acute Priority: High Qualifiers: Site of cellulitis: extremity Site of cellulitis of extremity: lower extremity Laterality: right Qualified Code(s): L03.115 - Cellulitis of right lower limb - Patient Summary/Data Complications: none Consults: Consultations 03/03/18 09:13 Consult to Physical Therapy [PT Evaluation and Treatment] [CONS] Routine Hospital Course: Patient initially admitted due to abdominal pain and concerns for UTI. Urine did show sediment and moderate leukocytes but no culture done so repeat UA and culture were done which were negative. Patient had a cholecystectomy done in October and has intermittent abdominal pain since that time. Has had minimal complaints of that while here. On day 1, patient did spike a 103.3 temp and his leg appeared to be more red, swollen and hot to the touch. Blood cultures were obtained. Rocephin was switched to Cleocin. Has had good response to that. Leg is still edematous and does have chronic venous stasis changes but the redness and warmth is now much improved. Has been afebrile for 2 days. Blood cultures negative. Strength has improved. Is ambulating with his walker , feels it is at his norm. - Patient Instructions Diet: Diabetic Diet Activity: As Tolerated - Discharge Plan *PRESCRIPTION DRUG MONITORING PROGRAM REVIEWED*: Not Applicable *COPY OF PRESCRIPTION DRUG MONITORING REPORT IN PATIENT OWEN: Not Applicable Prescriptions/Med Rec: Clindamycin HCl 300 mg PO TID #30 capsule Home Medications: Home Meds Cyanocobalamin (Vitamin B-12) [Vitamin B-12] 1,000 mcg PO BEDTIME 08/23/13 [ History] Albuterol [Ventolin HFA] 2 puff INH Q4H PRN 09/22/13 [History] Gabapentin 300 mg PO TID PRN 09/22/13 [History] Amiodarone [Cordarone] 200 mg PO DAILY 09/16/15 [History] Multivitamin [Daily Multiple Vitamin] 1 tab PO DAILY 09/16/15 [History] Aspirin [Ecotrin] 325 mg PO DAILY 07/05/16 [History] Carvedilol 12.5 mg PO BID 07/05/16 [History] Cholecalciferol (Vitamin D3) [Vitamin D3] 2,000 unit PO DAILY 07/05/16 [History] Cinnamon Bark [Cinnamon] 500 mg PO BID 07/05/16 [History] Hydrocodone/Acetaminophen [Hydrocodon-Acetaminophen 5-325] 1 each PO Q6H PRN 02/10 [History] Lisinopril 10 mg PO DAILY 07/05/16 [History] Torsemide [Demadex] 20 mg PO BID 07/05/16 [History] Ascorbic Acid [Vitamin C] 500 mg PO DAILY #30 tablet 07/11/16 [Rx] Albuterol/Ipratropium [DuoNeb 3.0-0.5 MG/3 ML] 3 ml NEB QIDRT PRN #120 neb 07/22 [Rx] Insulin NPH/Insulin Reg,Human [NovoLIN 70-30] 10 - 50 unit SQ ASDIRECTED [History] Vitamin A Palmitate [Vitamin A] 10,000 unit PO DAILY 05/30/17 [History] Docusate Sodium [Colace] 100 mg PO DAILY 11/12/17 [History] Clindamycin HCl 300 mg PO TID #30 capsule 03/06/18 [Rx] Patient Handouts: Cellulitis, Adult Forms: ED Department Discharge Referrals: Malu Lay, CONSTRUCTION COORDINATOR [Primary Care Provider] - (Follow up with Malu in 10 days for recheck) - Discharge Summary/Plan Comment DC Time >30 min.: No Discharge Summary/Plan Comment: Discharge home Cleocin 300 mg TID for 10 days Follow up with Malu in 10 days - General Info Date of Service: 03/06/18 Admission Dx/Problem (Free Text: Leucocytosis Functional Status: Reports: Pain Controlled, Tolerating Diet, Ambulating - Review of Systems General: Reports: Weakness. Denies: Fever, Fatigue, Malaise HEENT: Reports: No Symptoms Pulmonary: Reports: Shortness of Breath. Denies: Cough Cardiovascular: Reports: Edema. Denies: Chest Pain, Lightheadedness Gastrointestinal: Denies: Abdominal Pain, Nausea, Vomiting Genitourinary: Reports: No Symptoms Musculoskeletal: Reports: Leg Pain Skin: Reports: Other (erythema to leg) Neurological: Reports: No Symptoms - Patient Data Vitals - Most Recent: Last Vital Signs Temp 97.6 F 03/06/18 11:42 Pulse 63 03/06/18 11:42 Resp 16 03/06/18 11:42 BP 122/71 03/06/18 11:42 Pulse Ox 93 L 03/06/18 11:42 Weight - Most Recent: 327 lb I&O - Last 24 hours: Intake & Output 03/05/18 03/06/18 03/06/18 22:59 06:59 14:59 Intake Total 100 50 Balance 100 50 Lab Results - Last 24 hrs: Laboratory Results - last 24 hr 03/05/18 03/05/18 03/06/18 Range/Units 17:17 20:32 05:11 WBC 7.3 (5.0-10.0) 10^3/uL RBC 3.14 L (4.50-6.00) 10^6/uL Hgb 10.2 L (14.0-18.0) g/dL Hct 32.5 L (40.0-54.0) % MCV 103.5 H (82.0-94.0) fL MCH 32.5 H (27.0-32.0) pg MCHC 31.4 L (33.0-38.0) g/dL RDW Coeff of Sheron 14.7 (11.0-15.0) % Plt Count 131 L (150-400) 10^3/uL Neut % (Auto) 65.3 (35-85) % Lymph % (Auto) 18.6 (10-55) % [place] % (Auto) 13.2 (0-16) % Eos % (Auto) 2.3 (0-5) % Baso % (Auto) 0.6 (0-3) % Neut # (Auto) 4.75 (1.80-7.00) 10^3/uL Lymph # (Auto) 1.35 (1.00-4.80) 10^3/uL [place] # (Auto) 0.96 H (0.00-0.80) 10^3/uL Eos # (Auto) 0.17 (0.00-0.45) 10^3/uL Baso # (Auto) 0.04 10^3/uL Sodium (136-145) mEq/L Potassium (3.5-5.0) mEq/L Chloride (98-106) mEq/L Carbon Dioxide (21-32) mmol/L BUN (7-18) mg/dL Creatinine (0.7-1.3) mg/dL Est Cr Clr Drug Dosing mL/min Estimated GFR (MDRD) (>=60) mL/min Glucose (75-99) mg/dL POC Glucose 171 H 189 H (75-105) mg/dl Calcium (8.4-10.1) mg/dL C-Reactive Protein (0.2-0.8) mg/dL 03/06/18 03/06/18 03/06/18 Range/Units 07:00 07:39 11:35 WBC (5.0-10.0) 10^3/uL RBC (4.50-6.00) 10^6/uL Hgb (14.0-18.0) g/dL Hct (40.0-54.0) % MCV (82.0-94.0) fL MCH (27.0-32.0) pg MCHC (33.0-38.0) g/dL RDW Coeff of Sheron (11.0-15.0) % Plt Count (150-400) 10^3/uL Neut % (Auto) (35-85) % Lymph % (Auto) (10-55) % [place] % (Auto) (0-16) % Eos % (Auto) (0-5) % Baso % (Auto) (0-3) % Neut # (Auto) (1.80-7.00) 10^3/uL Lymph # (Auto) (1.00-4.80) 10^3/uL [place] # (Auto) (0.00-0.80) 10^3/uL Eos # (Auto) (0.00-0.45) 10^3/uL Baso # (Auto) 10^3/uL Sodium 142 (136-145) mEq/L Potassium 3.9 (3.5-5.0) mEq/L Chloride 105 (98-106) mEq/L Carbon Dioxide 31 (21-32) mmol/L BUN 37 H (7-18) mg/dL Creatinine 1.6 H (0.7-1.3) mg/dL Est Cr Clr Drug Dosing 35.44 mL/min Estimated GFR (MDRD) 42 L (>=60) mL/min Glucose 72 L D (75-99) mg/dL POC Glucose 66 L 167 H (75-105) mg/dl Calcium 8.7 (8.4-10.1) mg/dL C-Reactive Protein 20.8 H (0.2-0.8) mg/dL HIMANSHU Results - Last 24 hrs: Microbiology 03/03/18 20:30 Aerobic Blood Culture - Preliminary Blood - Venous - Lab Draw NO GROWTH AFTER 2 DAYS Anaerobic Blood Culture - Preliminary NO GROWTH AFTER 2 DAYS 03/03/18 20:25 Aerobic Blood Culture - Preliminary Blood - Venous NO GROWTH AFTER 2 DAYS Anaerobic Blood Culture - Preliminary NO GROWTH AFTER 2 DAYS Med Orders - Current: Current Medications Discontinued Medications Acetaminophen (Tylenol) 650 mg PO Q4H PRN PRN Reason: Fever Last Admin: 03/03/18 17:26 Dose: 650 mg Hydrocodone Bitart/Acetaminophen ([place] 325-5 Mg) 1 tab PO Q6H PRN PRN Reason: PAIN Last Admin: 03/05/18 23:53 Dose: 1 tab Albuterol (Ventolin Hfa) 0 gm INH Q4H PRN PRN Reason: DYSPNEA Albuterol (Proventil Neb Soln) 2.5 mg INH QIDRT PRN PRN Reason: SHORTNESS OF BREATH Amiodarone HCl (Cordarone) 200 mg PO DAILY [facility] Last Admin: 03/06/18 07:33 Dose: 200 mg Ascorbic Acid (Vitamin C) 500 mg PO DAILY [facility] Last Admin: 03/06/18 07:33 Dose: 500 mg Aspirin (Ecotrin) 325 mg PO DAILY [facility] Last Admin: 03/06/18 07:33 Dose: 325 mg Carvedilol (Coreg) 12.5 mg PO BID [facility] Last Admin: 03/06/18 07:33 Dose: 12.5 mg Ceftriaxone Sodium (Rocephin) 1 gm IVPUSH Q24H [facility] Stop: 03/05/18 23:59 Last Admin: 03/03/18 19:35 Dose: 1 gm Cholecalciferol (Vitamin D3) 2,000 units PO DAILY [facility] Last Admin: 03/06/18 07:33 Dose: 2,000 units Cyanocobalamin (Vitamin B12) 1,000 mcg PO BEDTIME [facility] Last Admin: 03/05/18 19:23 Dose: 1,000 mcg Docusate Sodium (Colace) 100 mg PO DAILY [facility] Last Admin: 03/06/18 07:33 Dose: 100 mg Enoxaparin Sodium (Lovenox) 40 mg SUBCUT Q24H [facility] Last Admin: 03/06/18 07:33 Dose: 40 mg Gabapentin (Neurontin) 300 mg PO BEDTIME PRN PRN Reason: NERVE PAIN Last Admin: 03/05/18 23:53 Dose: 300 mg Clindamycin Phosphate 300 mg/ (Premix) 50 mls @ 100 mls/hr IV Q6H [facility] Last Admin: 03/06/18 08:41 Dose: 100 mls/hr Ibuprofen (Motrin) 400 mg PO Q6H PRN PRN Reason: Fever Last Admin: 03/04/18 14:25 Dose: 400 mg Insulin Aspart (Novolog Mix 70-30) 10 - 50 unit SUBCUT ASDIRECTED [facility] Last Admin: 03/05/18 21:29 Dose: 15 unit Lisinopril (Prinivil) 10 mg PO DAILY [facility] Last Admin: 03/06/18 07:33 Dose: 10 mg Multivitamins/Minerals/Vitamin C (Tab-A-Dre) 1 tab PO DAILY [facility] Last Admin: 03/06/18 07:33 Dose: 1 tab Cinnamon Bark [ Cinnamon] 500 Mg Owm Med 500 mg PO BID [facility] Last Admin: 03/06/18 07:33 Dose: Not Given Vitamin A Palmitate [Vitamin A] 10,000 UnitOwn Med 10,000 unit PO DAILY [facility] Last Admin: 03/06/18 07:34 Dose: Not Given Torsemide (Demadex) 20 mg PO BIDDIURETIC [facility] Last Admin: 03/06/18 07:33 Dose: 20 mg - Exam General: Reports: Alert, Oriented HEENT: Reports: Mucous Membr. Moist/[place]: Reports: Supple Lungs: Reports: Clear to Auscultation, Normal Respiratory Effort Cardiovascular: Reports: Regular Rate, Regular Rhythm GI/Abdominal Exam: Normal Bowel Sounds, Soft, Non-Tender Extremities: Pedal Edema Skin: Reports: Other (right lower extremity is still mildly red but much improved. Minimal warmth. Venous stasis changes noted) Neurological: Reports: No New Focal Deficit
== END 2018-03-06 13:50 | disposition home or self-care (01) | DRG 603 ==
LOC: CC.ED 09:55 → INTOOBSV 11:43 → OBSVTOIN 11:43 → CC.MS 11:43 → OBSVTOIN 03-03 18:06
PROVIDERS: ADMIT Nurse Practitioner Family; ATTEND Family Medicine
DX: D72.829 Elevated white blood cell count, unspecified (principal); L03.115 Cellulitis of right lower limb; I42.9 Cardiomyopathy, unspecified; I50.9 Heart failure, unspecified; I11.0 Hypertensive heart disease with heart failure; E78.00 Pure hypercholesterolemia, unspecified; G47.30 Sleep apnea, unspecified; M15.9 Polyosteoarthritis, unspecified; E11.42 Type 2 diabetes mellitus with diabetic polyneuropathy; G47.00 Insomnia, unspecified; E55.9 Vitamin D deficiency, unspecified; I87.8 Other specified disorders of veins; R53.1 Weakness; K59.00 Constipation, unspecified; Z85.46 Personal history of malignant neoplasm of prostate; Z96.659 Presence of unspecified artificial knee joint; Z87.891 Personal history of nicotine dependence; Z90.49 Acquired absence of other specified parts of digestive tract; Z88.8 Allergy status to other drugs, medicaments and biological substances; Z79.899 Other long term (current) drug therapy; R35.1 Nocturia; R10.11 Right upper quadrant pain; R06.02 Shortness of breath; Z95.0 Presence of cardiac pacemaker; Z79.82 Long term (current) use of aspirin; Z79.4 Long term (current) use of insulin
CPT/HCPCS: 36415; 71046; 80048 ×2; 81001; 82150; 82962 ×6; 83690; 85025 ×2; 86140; 97161; 99285; A9270 ×15; J0696; J1650; J1815; 87040; 87086; 96372; 96374; 97110-GP; G0378; J3490

== ENCOUNTER 2018-12-16 10:24 | Emergency (ER) | payer MEDICARE, BC ==
[2018-12-16 10:27] VITALS: BP 123/91; PULSE 96
--- NOTE | 2018-12-16 11:08 | EDM.PDOC ---
ED HPI GENERAL MEDICAL PROBLEM - General Chief Complaint: Diabetic Complaint Stated Complaint: WEAKNESS Time Seen by Provider: 12/16/18 11:07 Source of Information: Reports: Patient History Limitations: Reports: No Limitations - History of Present Illness INITIAL COMMENTS - FREE TEXT/NARRATIVE: Maxi is a 78 year old male who presents to the ED with c/o weakness. He has chronic weakness and deconditioning, but feels this morning he feels more weak than normal. Reports he was over to PT and was unable to participate due to weakness. reported to clinic staff she was unable to get him out of car, so it was recommended he come to ED. Nursing staff report he was able to get out of car per self and ambulate with FWW. He reports he just feels like he is getting more and more weak. He is morbidly obese and very deconditioned. He is scheduled to have biopsy of questionable mass on thoracic spine on Saturday. He denies any acute symptoms per say. Does report ongoing RUQ abdominal pain for the past year +, as well as mid back pain. Denies any fever, chills, malaise , N/V/D, chest pain, SOB at rest, cough, urinary symptoms. Does have chronic edema to BLE. Onset: Today Associated Symptoms: Reports: Weakness. Denies: Confusion, Chest Pain, Cough, cough w sputum, Diaphoresis, Fever/Chills, Headaches, Loss of Appetite, Malaise , Nausea/Vomiting, Rash, Seizure, Shortness of Breath, Syncope - Related Data Allergies Allergy/AdvReac Type Severity Reaction Status Date / Time rivaroxaban [From Xarelto] Allergy Bleeding Verified 12/16/18 10:27 Home Meds: Home Meds Cyanocobalamin (Vitamin B-12) [Vitamin B-12] 1,000 mcg PO BEDTIME 08/23/13 [ History] Albuterol [Ventolin HFA] 2 puff INH Q4H PRN 09/22/13 [History] Gabapentin 300 mg PO TID PRN 09/22/13 [History] Amiodarone [Cordarone] 200 mg PO DAILY 09/16/15 [History] Multivitamin [Daily Multiple Vitamin] 1 tab PO DAILY 09/16/15 [History] Aspirin [Ecotrin EC] 325 mg PO DAILY 07/05/16 [History] Carvedilol 12.5 mg PO BID 07/05/16 [History] Cholecalciferol (Vitamin D3) [Vitamin D3] 2,000 unit PO DAILY 07/05/16 [History] Cinnamon Bark [Cinnamon] 500 mg PO BID 07/05/16 [History] Hydrocodone/Acetaminophen [Hydrocodon-Acetaminophen 5-325] 1 each PO Q6H PRN 02/10 [History] Lisinopril 10 mg PO DAILY 07/05/16 [History] Torsemide [Demadex] 20 mg PO BID 07/05/16 [History] Albuterol/Ipratropium [DuoNeb 3.0-0.5 MG/3 ML] 3 ml NEB QIDRT PRN #120 neb 07/22 [Rx] Insulin NPH/Insulin Reg,Human [NovoLIN 70-30] 10 - 50 unit SQ ASDIRECTED [History] Vitamin A Palmitate [Vitamin A] 10,000 unit PO DAILY 05/30/17 [History] Docusate Sodium [Colace] 100 mg PO DAILY 11/12/17 [History] Past Medical History Cardiovascular History: Reports: Cardiomyopathy, Heart Failure, High Cholesterol , Hypertension, Pacemaker Respiratory History: Reports: Sleep Apnea, SOB, Other (See Below) Other Respiratory History: history of bronchiolitis Genitourinary History: Reports: Other (See Below) Other Genitourinary History: history of gross hematuria, nocturua Musculoskeletal History: Reports: Arthritis, Back Pain, Chronic, Gout, Other ( See Below) Other Musculoskeletal History: history of bursitis, closed fracture of base of 5th metatarsal bone, trochanteric bursitis of left hip, chronic arthralgias of knees and hips. Chronic ankle pain. mass on back bx scheduled 12/19/18Z Neurological History: Reports: Neuropathy, Peripheral Psychiatric History: Reports: Other (See Below) Other Psychiatric History: insomnia Endocrine/Metabolic History: Reports: Diabetes, Type II Hematologic History: Reports: Other (See Below) Other Hematologic History: vitamin D deficiency Oncologic (Cancer) History: Reports: Prostate Dermatologic History: Reports: Other (See Below) Other Dermatologic History: history of fungal dermatitis - Past Surgical History GI Surgical History: Reports: Cholecystectomy, Colon, Colonoscopy Male Surgical History: Reports: Other (See Below) Musculoskeletal Surgical History: Reports: Knee Replacement, Shoulder Surgery, Other (See Below) Social & Family History - Family History Family Medical History: Noncontributory - Tobacco Use Smoking Status *Q: Never Smoker - Caffeine Use Caffeine Use: Reports: Coffee, Soda, Tea - Recreational Drug Use Recreational Drug Use: No - Living Situation & Occupation Living situation: Reports: Occupation: Retired ED ROS GENERAL - Review of Systems Review Of Systems: ROS reveals no pertinent complaints other than HPI. ED EXAM GENERAL NO PERIP PULSE - Physical Exam Exam: See Below Exam Limited By: No Limitations General Appearance: Alert, WD/WN, No Apparent Distress, Obese Eye Exam: Bilateral Eye: EOMI, PERRL Throat/Mouth: Normal Inspection, Normal Lips, Normal Teeth, Normal Gums, Normal Oropharynx, Normal Voice, No Airway Compromise Head: Atraumatic, Normocephalic Neck: Normal Inspection, Supple, Non-Tender, Full Range of Motion Respiratory/Chest: No Respiratory Distress, Lungs Clear, Normal Breath Sounds, No Accessory Muscle Use, Chest Non-Tender Cardiovascular: Normal Peripheral Pulses, Regular Rate, Rhythm, Other (1+ pitting edema to BLE) GI/Abdominal: Normal Bowel Sounds, Soft, No Distention, Tender (RUQ) Back Exam: Decreased Range of Motion, Vertebral Tenderness (thoracic spine) Extremities: Non-Tender, Normal Capillary Refill, Pedal Edema (1+ pitting BLE). No: Redness Neurological: Alert, Oriented, CN II-XII Intact, Normal Cognition, Normal Gait ( weakness per baseline, uses FWW), No Motor/Sensory Deficits Psychiatric: Normal Affect, Normal Mood Course - Vital Signs Last Recorded V/S: Last Vital Signs Temp 97.4 F 12/16/18 10:25 Pulse 96 12/16/18 10:25 Resp 18 12/16/18 10:25 BP 123/91 H 12/16/18 10:25 Pulse Ox 96 12/16/18 10:25 - Orders/Labs/Meds Labs: Laboratory Tests 12/16/18 12/16/18 12/16/18 Range/Units 10:40 10:41 10:41 WBC 6.3 (5.0-10.0) 10^3/uL RBC 3.62 L (4.50-6.00) 10^6/uL Hgb 11.7 L (14.0-18.0) g/dL Hct 36.8 L (40.0-54.0) % MCV 101.7 H (82.0-94.0) fL MCH 32.3 H (27.0-32.0) pg MCHC 31.8 L (33.0-38.0) g/dL RDW Coeff of Sheron 17.0 H (11.0-15.0) % Plt Count 145 L (150-400) 10^3/uL Neut % (Auto) 65.7 (35-85) % Lymph % (Auto) 19.0 (10-55) % [place] % (Auto) 12.1 (0-16) % Eos % (Auto) 2.6 (0-5) % Baso % (Auto) 0.6 (0-3) % Neut # (Auto) 4.12 (1.80-7.00) 10^3/uL Lymph # (Auto) 1.19 (1.00-4.80) 10^3/uL [place] # (Auto) 0.76 (0.00-0.80) 10^3/uL Eos # (Auto) 0.16 (0.00-0.45) 10^3/uL Baso # (Auto) 0.04 10^3/uL Sodium 141 (136-145) mEq/L Potassium 5.4 H (3.5-5.0) mEq/L Chloride 104 (98-106) mEq/L Carbon Dioxide 33 H (21-32) mmol/L BUN 56 H (7-18) mg/dL Creatinine 1.9 H (0.7-1.3) mg/dL Est Cr Clr Drug Dosing 29.38 mL/min Estimated GFR (MDRD) 35 L (>=60) mL/min Glucose 173 H (75-99) mg/dL Calcium 8.8 (8.4-10.1) mg/dL C-Reactive Protein 4.6 H (0.2-0.8) mg/dL Urine Color Yellow (YELLOW) Urine Appearance Clear (CLEAR) Urine pH 5.0 (4.5-8.0) Ur Specific [place] 1.015 (1.003-1.020) Urine Protein Negative (NEGATIVE) mg/dL Urine Glucose (UA) Negative (NEGATIVE) mg/dL Urine Ketones Negative (NEGATIVE) mg/dL Urine Occult Blood Trace-intact H (NEGATIVE) Urine Nitrite Negative (NEGATIVE) Urine Bilirubin Negative (NEGATIVE) Urine Urobilinogen 0.2 (0.2-1.0) EU/dL Ur Leukocyte Esterase Small H (NEGATIVE) Urine RBC 0-5 (0-5) /HPF Urine WBC 0-5 (0-5) /HPF Ur Squamous Epith Cells Few H (NOT SEEN) /HPF Urine Bacteria Moderate H (NOT SEEN) /HPF Hyaline Casts Few H (NOT SEEN) /LPF - Re-Assessments/Exams Free Text/Narrative Re-Assessment/Exam: Discussed stable lab work with patient and . voices concerns of increased shakiness and slurring of speech for the past few months. Patient does have Parkinson's. Patient is well known to me. I do not appreciate any slurring of speech outside of norm. Discussed with patient and that if it is getting to be to difficult to care for patient at home, they may need to consider SNF for rehab and strengthening. Patient reports "that is last resort. " voices concerns with her ability to continue to care for him. He is morbidly obese with BMI of 50. He typically only ambulates ~500 feet from chair to bathroom throughout the day. Discussed significant deconditioning with patient and . They verbalize understanding and do not wish to look into half-way care placement at this time. Discussed that they need to let me know when they feel time has come when he is no longer able to care for self/be cared for in home. Recommended that they try to continue PT as able. Patient may need home health in future as effort to keep patient in home as long as possible. It is very taxing effort for to get him out of house. Patient and voice concerns re: current CPAP machine and it not working. He reports it did not work last night so he was unable to wear it. Reports he has been having increased daytime fatigue. verbalizes that it was at least 10 years ago when he had sleep study. I advised them to follow up in clinic to discuss repeat testing and that this is not something that can be done from ED. Departure - Departure Time of Disposition: 11:51 Disposition: Home, Self-Care 01 Condition: Fair Clinical Impression: Physical deconditioning, Diabetes mellitus type 2, Sleep apnea, Morbid obesity - Discharge Information *PRESCRIPTION DRUG MONITORING PROGRAM REVIEWED*: Not Applicable *COPY OF PRESCRIPTION DRUG MONITORING REPORT IN PATIENT OWEN: Not Applicable Instructions: Weakness Referrals: Malu Lay, [employer] TECHNICIAN [Primary Care Provider] - Forms: ED Department Discharge Additional Instructions: - Labs all stable - Continue PT as able - Follow up re: CPAP to ensure adequate functioning - Recommend f/u to discuss repeat sleep study testing in near future
== END 2018-12-16 12:10 | disposition home or self-care (01) ==
LOC: CC.ED 10:24
DX: G47.30 Sleep apnea, unspecified (principal); R53.81 Other malaise; E66.01 Morbid (severe) obesity due to excess calories; E11.9 Type 2 diabetes mellitus without complications; R10.11 Right upper quadrant pain; M54.6 Pain in thoracic spine; I11.0 Hypertensive heart disease with heart failure; I50.9 Heart failure, unspecified; M19.90 Unspecified osteoarthritis, unspecified site; M10.9 Gout, unspecified; Z90.49 Acquired absence of other specified parts of digestive tract; Z79.4 Long term (current) use of insulin; Z79.82 Long term (current) use of aspirin; Z79.899 Other long term (current) drug therapy; Z95.0 Presence of cardiac pacemaker; Z88.8 Allergy status to other drugs, medicaments and biological substances
CPT/HCPCS: 36415; 80048; 81001; 85025; 86140; 99284

== ENCOUNTER 2018-12-29 22:21 | Inpatient (IN) | payer MEDICARE, BC ==
--- NOTE | 2018-12-29 23:40 | EDM.PDOC ---
ED HPI GENERAL MEDICAL PROBLEM - General Chief Complaint: General Stated Complaint: weakness, fall Time Seen by Provider: 12/29/18 22:49 Source of Information: Reports: Patient, EMS, Family History Limitations: Reports: No Limitations - History of Present Illness INITIAL COMMENTS - FREE TEXT/NARRATIVE: Maxi is a 78 year old male who presents to the ED via [facility]. EMS was paged out to help with a lift assist. Patient reports he returned home from [place] this evening, where he had fine needle biopsy of a thoracic lesion completed, and was unable to get himself into his household as he was too weak. reports he was weak when leaving hospital in [place] but they had a crew that helped him into the car. She reports he did fine on the way home from [place]. She reports she attempted to get him out of the car and into the house but he was unable to make it over the threshold to get into the house. She reports they had to call a couple neighbors to help him, but still were unable to get him up. He denies any injuries with the fall. Reports his legs just get weak and they give out. Was able to be lowered to ground by neighbors. He denies feeling SOB but oxygen was low with EMS, mid 70s, on RA. O2 sat with activity was 86% on 4 L in ED while attempting to stand and urinate. His legs gave out while attempting to urinate and assist of 4 staff was used to get him back on cot. He did have general anesthesia today for procedure. He denies any complaints other than mid back pain. Denies any chest pain, shortness of breath, dizziness, syncope, N/V/D, urinary symptoms. does report swelling in his legs seems to be worsening, R > L. Does have 2-3+ pitting edema to BLE. Also has multiple open area to skin, including pressure ulcer to buttocks. reports he is unable to ambulate much at home. Onset: Today Location: Reports: Back Quality: Reports: Ache Severity: Severe Improves with: Reports: None Worsens with: Reports: Other (lying flat), Movement Associated Symptoms: Reports: No Other Symptoms. Denies: Confusion, Chest Pain , Cough, cough w sputum, Diaphoresis, Fever/Chills, Headaches, Loss of Appetite , Malaise, Nausea/Vomiting, Rash, Seizure, Shortness of Breath, Syncope, Weakness Middle Back Pain Score (Numeric/FACES): 8 - Related Data Allergies Allergy/AdvReac Type Severity Reaction Status Date / Time rivaroxaban [From Xarelto] Allergy Bleeding Verified 12/29/18 22:39 Home Meds: Home Meds Cyanocobalamin (Vitamin B-12) [Vitamin B-12] 1,000 mcg PO ASDIRECTED 08/23/13 [ History] Albuterol [Ventolin HFA] 2 puff INH Q4H PRN 09/22/13 [History] Gabapentin 300 mg PO TID PRN 09/22/13 [History] Amiodarone [Cordarone] 200 mg PO DAILY 09/16/15 [History] Multivitamin [Daily Multiple Vitamin] 1 tab PO DAILY 09/16/15 [History] Aspirin [Ecotrin EC] 325 mg PO DAILY 07/05/16 [History] Carvedilol 12.5 mg PO BID 07/05/16 [History] Cholecalciferol (Vitamin D3) [Vitamin D3] 2,000 unit PO DAILY 07/05/16 [History] Cinnamon Bark [Cinnamon] 500 mg PO ASDIRECTED 07/05/16 [History] Hydrocodone/Acetaminophen [Hydrocodon-Acetaminophen 5-325] 1 each PO Q6H PRN 02/10 [History] Lisinopril 10 mg PO DAILY 07/05/16 [History] Torsemide [Demadex] 20 mg PO TID 07/05/16 [History] Albuterol/Ipratropium [DuoNeb 3.0-0.5 MG/3 ML] 3 ml NEB QIDRT PRN #120 neb 07/22 [Rx] Insulin NPH/Insulin Reg,Human [NovoLIN 70-30] 10 - 50 unit SQ QID PRN 05/30/17 [ History] Vitamin A Palmitate [Vitamin A] 2,400 unit PO DAILY 05/30/17 [History] Docusate Sodium [Colace] 100 mg PO BID 11/12/17 [History] Allopurinol [Zyloprim] 100 mg PO DAILY 12/29/18 [History] Carbidopa/Levodopa [Carbidopa-Levo 25-100 MG ODT] 1 tab PO TID 12/29/18 [History ] Polyethylene Glycol 3350 [MiraLAX] 17 gm PO DAILY PRN 12/29/18 [History] Past Medical History Cardiovascular History: Reports: Cardiomyopathy, Heart Failure, High Cholesterol , Hypertension, Pacemaker Respiratory History: Reports: Sleep Apnea, SOB, Other (See Below) Other Respiratory History: history of bronchiolitis Gastrointestinal History: Reports: None Genitourinary History: Reports: Other (See Below) Other Genitourinary History: history of gross hematuria, nocturia Musculoskeletal History: Reports: Arthritis, Back Pain, Chronic, Gout, Other ( See Below) Other Musculoskeletal History: history of bursitis, closed fracture of base of 5th metatarsal bone, trochanteric bursitis of left hip, chronic arthralgias of knees and hips. Chronic ankle pain. mass on back bx Neurological History: Reports: Neuropathy, Peripheral Psychiatric History: Reports: Other (See Below) Other Psychiatric History: insomnia Endocrine/Metabolic History: Reports: Diabetes, Type II Hematologic History: Reports: Other (See Below) Other Hematologic History: vitamin D deficiency Oncologic (Cancer) History: Reports: Prostate Dermatologic History: Reports: Other (See Below) Other Dermatologic History: history of fungal dermatitis - Past Surgical History HEENT Surgical History: Reports: Tonsillectomy Cardiovascular Surgical History: Reports: None Respiratory Surgical History: Reports: None GI Surgical History: Reports: Cholecystectomy, Colon, Colonoscopy Neurological Surgical History: Reports: None Musculoskeletal Surgical History: Reports: Knee Replacement, Shoulder Surgery, Other (See Below) Other Musculoskeletal Surgeries/Procedures:: biopsy done today to mass on mid back Oncologic Surgical History: Reports: None Dermatological Surgical History: Reports: None Social & Family History - Family History Family Medical History: Noncontributory - Tobacco Use Smoking Status *Q: Former Smoker Used Tobacco, but Quit: Yes Month/Year Tobacco Last Used: 40 yrs ago - Caffeine Use Caffeine Use: Reports: Coffee - Recreational Drug Use Recreational Drug Use: No - Living Situation & Occupation Living situation: Reports: Occupation: Retired ED ROS GENERAL - Review of Systems Review Of Systems: See Below Constitutional: Reports: Weakness, Fatigue. Denies: Fever, Malaise, Decreased Appetite HEENT: Reports: No Symptoms Respiratory: Denies: Shortness of Breath, Wheezing, Pleuritic Chest Pain, Cough , Sputum, Hemoptysis Cardiovascular: Reports: Dyspnea on Exertion, Edema, Orthopnea. Denies: Chest Pain, Blood Pressure Problem, Claudication, Lightheadedness, Palpitations, PND, Syncope Endocrine: Reports: Fatigue GI/Abdominal: Denies: Abdominal Pain, Diarrhea, Nausea, Vomiting : Reports: No Symptoms Musculoskeletal: Reports: Back Pain (mid) Skin: Reports: Wound (scattered multiple sores) Neurological: Reports: Difficulty Walking, Weakness. Denies: Confusion, Dizziness, Headache, Numbness, Syncope, Tingling Psychiatric: Reports: No Symptoms Hematologic/Lymphatic: Reports: No Symptoms Immunologic: Reports: No Symptoms ED EXAM, GENERAL - Physical Exam Exam: See Below Exam Limited By: No Limitations General Appearance: Alert, No Apparent Distress, Obese Eye Exam: Bilateral Eye: EOMI, Normal Fundi, Normal Inspection, PERRL Nose: Other (dried blood) Throat/Mouth: Other (dry mucous membranes) Head: Atraumatic, Normocephalic Neck: Normal Inspection, Supple, Non-Tender, Full Range of Motion Respiratory/Chest: No Respiratory Distress, Lungs Clear, Decreased Breath Sounds Cardiovascular: Regular Rate, Rhythm, Other (2+ pitting edema to BLE, chronic venous stasis to BLE) GI/Abdominal: Normal Bowel Sounds, Soft, Non-Tender (Male) Exam: Other (sores on penis) Back Exam: Normal Inspection, Other (bandaid to biopsy site, CDI, no drainage) Extremities: Non-Tender, Pedal Edema (2+ pitting) Neurological: Alert, Oriented, No Motor/Sensory Deficits, Other (tremor to BUE, weakness) Skin Exam: Other (scattered abrasions and ecchymosis, stage II pressure ulcer to buttocks) Course - Vital Signs Last Recorded V/S: Last Vital Signs Temp 97.3 F 12/30/18 16:00 Pulse 62 12/30/18 20:09 Resp 20 12/30/18 16:00 BP 121/33 L 12/30/18 20:09 Pulse Ox 94 L 12/30/18 16:00 - Orders/Labs/Meds Orders: Medication Orders Acetaminophen (Tylenol Extra Strength) 1,000 mg PO Q12H PRN PRN Reason: Pain Albuterol (Ventolin Hfa) 0 gm INH Q4H PRN PRN Reason: Dyspnea Albuterol/Ipratropium (Duoneb 3.0-0.5 Mg/3 Ml) 3 ml NEB Q4H PRN PRN Reason: Shortness Of Breath/wheezing Albuterol/Ipratropium (Duoneb 3.0-0.5 Mg/3 Ml) 3 ml NEB QIDRT PRN PRN Reason: Shortness of Breath Allopurinol (Zyloprim) 100 mg PO DAILY [facility] Last Admin: 12/30/18 08:34 Dose: 100 mg Amiodarone HCl (Cordarone) 200 mg PO DAILY [facility] Last Admin: 12/30/18 08:35 Dose: 200 mg Aspirin (Ecotrin) 325 mg PO DAILY [facility] Last Admin: 12/30/18 08:34 Dose: 325 mg Calamine/Phenol (Calmoseptine) 1 gm TOP BID [facility] Last Admin: 12/30/18 19:59 Dose: 1 applic Admin: 12/30/18 08:33 Dose: 1 applic Carbidopa/Levodopa (Sinemet 25-100 Mg) 1 tab PO TID [facility] Last Admin: 12/30/18 20:10 Dose: 1 tab Admin: 12/30/18 14:32 Dose: 1 tab Admin: 12/30/18 08:35 Dose: 1 tab Carvedilol (Coreg) 12.5 mg PO BID [facility] Last Admin: 12/30/18 20:09 Dose: 12.5 mg Admin: 12/30/18 08:34 Dose: 12.5 mg Ceftriaxone Sodium (Rocephin) 1 gm IVPUSH Q24H [facility] Last Admin: 12/30/18 18:14 Dose: 1 gm Cholecalciferol (Vitamin D3) 50 mcg PO DAILY [facility] Last Admin: 12/30/18 08:37 Dose: 50 mcg Cyanocobalamin (Vitamin B12) 1,000 mcg PO MoWeFr@0800 [facility] Last Admin: 12/30/18 08:37 Dose: Docusate Sodium (Colace) 100 mg PO BID [facility] Last Admin: 12/30/18 20:07 Dose: 100 mg Admin: 12/30/18 08:33 Dose: 100 mg Enoxaparin Sodium (Lovenox) 30 mg SUBCUT Q24H [facility] Last Admin: 12/30/18 08:31 Dose: 30 mg Gabapentin (Neurontin) 300 mg PO TID PRN PRN Reason: Nerve pain Insulin Human Lispro (Humalog) 0 unit SUBCUT 0730,1130,1730,2030 [facility]; Protocol Last Admin: 12/30/18 20:13 Dose: 4 units Admin: 12/30/18 18:01 Dose: 4 units Admin: 12/30/18 12:14 Dose: 4 units Multivitamins/Minerals/Vitamin C (Tab-A-Dre) 1 tab PO DAILY [facility] Last Admin: 12/30/18 08:33 Dose: 1 tab Nystatin (Nystop) 1 gm TOP TID [facility] Last Admin: 12/30/18 20:10 Dose: 1 applic Admin: 12/30/18 14:32 Dose: 1 applic Admin: 12/30/18 08:32 Dose: 1 applic Polyethylene Glycol (Miralax) 17 gm PO DAILY PRN PRN Reason: Constipation Sodium Chloride (Saline Flush) 10 ml FLUSH ASDIRECTED PRN PRN Reason: Keep Vein Open Torsemide (Demadex) 20 mg PO BIDDIURETIC [facility] Last Admin: 12/30/18 16:01 Dose: 20 mg Admin: 12/30/18 08:33 Dose: 20 mg Labs: Laboratory Tests 12/29/18 12/29/18 Range/Units 22:06 22:06 WBC 9.4 (5.0-10.0) 10^3/uL RBC 3.74 L (4.50-6.00) 10^6/uL Hgb 11.8 L (14.0-18.0) g/dL Hct 38.8 L (40.0-54.0) % MCV 103.7 H (82.0-94.0) fL MCH 31.6 (27.0-32.0) pg MCHC 30.4 L (33.0-38.0) g/dL RDW Coeff of Sheron 17.5 H (11.0-15.0) % Plt Count 153 (150-400) 10^3/uL Neut % (Auto) 79.6 (35-85) % Lymph % (Auto) 8.6 L (10-55) % Hughes % (Auto) 9.4 (0-16) % Eos % (Auto) 2.2 (0-5) % Baso % (Auto) 0.2 (0-3) % Neut # (Auto) 7.46 H (1.80-7.00) 10^3/uL Lymph # (Auto) 0.81 L (1.00-4.80) 10^3/uL Hughes # (Auto) 0.88 H (0.00-0.80) 10^3/uL Eos # (Auto) 0.21 (0.00-0.45) 10^3/uL Baso # (Auto) 0.02 10^3/uL Sodium 140 (136-145) mEq/L Potassium 5.3 H (3.5-5.0) mEq/L Chloride 103 (98-106) mEq/L Carbon Dioxide 30 (21-32) mmol/L BUN 55 H (7-18) mg/dL Creatinine 2.2 H (0.7-1.3) mg/dL Est Cr Clr Drug Dosing 25.38 mL/min Estimated GFR (MDRD) 29 L (>=60) mL/min Glucose 241 H D (75-99) mg/dL Calcium 8.7 (8.4-10.1) mg/dL Meds: Medications Generic Name Dose Route Start Last Admin Trade Name Freq PRN Reason Stop Dose Admin Acetaminophen 1,000 mg 12/30/18 20:00 Tylenol Extra Strength PO Q12H PRN Pain Albuterol 0 gm 12/30/18 00:51 Ventolin Hfa INH Q4H PRN Dyspnea Albuterol/Ipratropium 3 ml 12/30/18 00:51 Duoneb 3.0-0.5 Mg/3 Ml NEB Q4H PRN Shortness Of Breath/wheezing Albuterol/Ipratropium 3 ml 12/30/18 00:51 Duoneb 3.0-0.5 Mg/3 Ml NEB QIDRT PRN Shortness of Breath Allopurinol 100 mg 12/30/18 08:00 12/30/18 08:34 Zyloprim PO 100 mg DAILY [facility] Administration Amiodarone HCl 200 mg 12/30/18 08:00 12/30/18 08:35 Cordarone PO 200 mg DAILY [facility] Administration Aspirin 325 mg 12/30/18 08:00 12/30/18 08:34 Ecotrin PO 325 mg DAILY [facility] Administration Calamine/Phenol 1 gm 12/30/18 08:00 12/30/18 19:59 Calmoseptine TOP 1 applic BID [facility] Administration Carbidopa/Levodopa 1 tab 12/30/18 08:00 12/30/18 20:10 Sinemet 25-100 Mg PO 1 tab TID [facility] Administration Carvedilol 12.5 mg 12/30/18 08:00 12/30/18 20:09 Coreg PO 12.5 mg BID [facility] Administration Ceftriaxone Sodium 1 gm 12/30/18 18:00 12/30/18 18:14 Rocephin IVPUSH 1 gm Q24H [facility] Administration Cholecalciferol 50 mcg 12/30/18 08:00 12/30/18 08:37 Vitamin D3 PO 50 mcg DAILY [facility] Administration Cyanocobalamin 1,000 mcg 12/30/18 08:00 12/30/18 08:37 Vitamin B12 PO Not Given MoWeFr@0800 [facility] Docusate Sodium 100 mg 12/30/18 08:00 12/30/18 20:07 Colace PO 100 mg BID [facility] Administration Enoxaparin Sodium 30 mg 12/30/18 08:00 12/30/18 08:31 Lovenox SUBCUT 30 mg Q24H [facility] Administration Gabapentin 300 mg 12/30/18 00:51 Neurontin PO TID PRN Nerve pain Insulin Human Lispro 0 unit 12/30/18 11:30 12/30/18 20:13 Humalog SUBCUT 4 units 0730,1130,1730,2030 [facility] Administration Protocol Multivitamins/Minerals/Vitamin C 1 tab 12/30/18 08:00 12/30/18 08:33 Tab-A-Dre PO 1 tab DAILY [facility] Administration Nystatin 1 gm 12/30/18 08:00 12/30/18 20:10 Nystop TOP 1 applic TID [facility] Administration Polyethylene Glycol 17 gm 12/30/18 00:51 Miralax PO DAILY PRN Constipation Sodium Chloride 10 ml 12/30/18 00:51 Saline Flush FLUSH ASDIRECTED PRN Keep Vein Open Torsemide 20 mg 12/30/18 08:00 12/30/18 16:01 Demadex PO 20 mg BIDDIURETIC [facility] Administration Discontinued Medications Generic Name Dose Route Start Last Admin Trade Name Freq PRN Reason Stop Dose Admin Hydrocodone Bitart/Acetaminophen 1 - 2 tab 12/30/18 00:51 12/30/18 16:01 [place] 325-5 Mg PO 1 tab Q4H PRN Administration Pain Enoxaparin Sodium 30 mg 12/30/18 01:00 12/30/18 02:17 Lovenox SUBCUT Not Given Q24H [facility] Departure - Departure Time of Disposition: 23:35 Disposition: Admitted As Inpatient 67 Condition: Poor Clinical Impression: Weakness generalized, Morbid obesity, Status post fine needle biopsy, Diabetes mellitus type 2, Frequent falls Chronic kidney disease Qualifiers: Chronic kidney disease stage: stage 3 (moderate) Qualified Code(s): N18.3 - Chronic kidney disease, stage 3 (moderate) - Discharge Information *PRESCRIPTION DRUG MONITORING PROGRAM REVIEWED*: Not Applicable *COPY OF PRESCRIPTION DRUG MONITORING REPORT IN PATIENT OWEN: Not Applicable - Problem List & Annotations (1) Weakness generalized SNOMED Code(s): 08556861 Code(s): R53.1 - WEAKNESS Status: Acute Priority: High Current Visit: Yes (2) Frequent falls SNOMED Code(s): 957383208 Code(s): R29.6 - REPEATED FALLS Status: Acute Priority: High Current Visit: Yes (3) Status post fine needle biopsy SNOMED Code(s): 913188314, 578697348 Code(s): Z98.890 - OTHER SPECIFIED POSTPROCEDURAL STATES Status: Acute Priority: Medium Current Visit: Yes (4) Diabetes mellitus type 2 SNOMED Code(s): 12788202 Code(s): E11.9 - TYPE 2 DIABETES MELLITUS WITHOUT COMPLICATIONS Status: Chronic Priority: Medium Current Visit: No (5) HTN, Benign essential hypertension SNOMED Code(s): 3155064 Code(s): I10 - ESSENTIAL (PRIMARY) HYPERTENSION Status: Chronic Priority : High Current Visit: No (6) Morbid obesity SNOMED Code(s): 112810101 Code(s): E66.01 - MORBID (SEVERE) OBESITY DUE TO EXCESS CALORIES Status: Chronic Priority: Low Current Visit: No (7) Hypoxia SNOMED Code(s): 685625241 Code(s): R09.02 - HYPOXEMIA Status: Acute Current Visit: Yes - Problem List Review Problem List Initiated/Reviewed/Updated: Yes - Assessment/Plan Admission H&P: Please use this note as an admission H&P Plan: Patient is vulnerable adult. Has had frequent falls recently and is unable to ambulate without assist of multiple people. Has been declining as of recent. Has previously been living at home with , who does majority of patient's cares and assists with ADLs. reports she is unable to care for him in this state. Reports he has been getting more and more weak, making it very difficult for her to care for him. Has been having back pain since fine needle biopsy earlier today. Continue home pain meds as previously prescribed. PT for strengthening and evaluation of pressure ulcer to buttocks. Aquacel applied to area where 2 pen point pressure ulcers are located on buttock. Consult to case management. Patient will need SNF placement as he is unable to care for self and unable to care for patient safely at home. agreeable during discussion in ED reporting she cannot care for him. Overall, labs stable. Creatinine elevated to 2.2 from baseline 1.8. K elevated. Will hold lisinopril. QID AC with SSI for blood sugar management. Admit to acute Repeat labs in am
[2018-12-30] MEDS ORDERED: Sodium Chloride 0.9% 10 ML Syringe FLUSH PRN (00:51)
[2018-12-30] MEDS ORDERED: Gabapentin 300 MG Cap PO PRN (00:51)
[2018-12-30] MEDS ORDERED: Polyethylene Glycol 3350 Powder 17 GM Packet PO PRN (00:51)
[2018-12-30] MEDS ORDERED: Albuterol/Ipratropium 3.0-0.5 MG/3 ML Neb Soln NEB PRN ×2 (00:51)
[2018-12-30] MEDS ORDERED: Albuterol 8 GM Inhaler INH PRN (00:51)
[2018-12-30] MEDS ORDERED: Enoxaparin 30 MG/0.3 ML Syringe SUBCUT SCH (01:00)
[2018-12-30] MEDS: Enoxaparin 30 MG/0.3 ML Syringe SUBCUT SCH (08:31)
[2018-12-30] MEDS: Nystatin Topical Powder 15 GM Bottle TOP SCH ×3 (08:32→20:10)
[2018-12-30] MEDS: Docusate Sodium 100 MG Cap PO SCH ×2 (08:33→20:07)
[2018-12-30] MEDS: Multivitamin Tab PO SCH (08:33)
[2018-12-30] MEDS: Torsemide 20 MG Tab PO SCH ×2 (08:33→16:01)
[2018-12-30] MEDS: Menthol/Zinc Oxide Ointment 113 GM Tube TOP SCH ×2 (08:33→19:59)
[2018-12-30] MEDS: Allopurinol 100 MG Tab PO SCH (08:34)
[2018-12-30] MEDS: Aspirin 325 MG Tab.EC PO SCH (08:34)
[2018-12-30] MEDS: Carvedilol 12.5 MG Tab PO SCH ×2 (08:34→20:09)
[2018-12-30] MEDS: Carbidopa/Levodopa 25-100 MG Tab PO SCH ×3 (08:35→20:10)
[2018-12-30] MEDS: Amiodarone 200 MG Tab PO SCH (08:35)
[2018-12-30] MEDS: Cholecalciferol (Vitamin D3) 25 MCG Tab PO SCH (08:37)
[2018-12-30] MEDS: Cyanocobalamin (Vitamin B12) 1,000 MCG Tab PO SCH (08:37)
[2018-12-30] MEDS: Acetaminophen/HYDROcodone 325-5 MG Tab PO PRN ×2 (08:43→16:01)
--- NOTE | 2018-12-30 09:26 | PCM.PN ---
- General Info Date of Service: 12/30/18 Admission Dx/Problem (Free Text): Weakness Vulnerable Adult Hypoxia Functional Status: Reports: Tolerating Diet. Denies: Pain Controlled, Ambulating - Review of Systems General: Reports: Weakness, Fatigue. Denies: Fever, Malaise HEENT: Reports: No Symptoms Pulmonary: Reports: Shortness of Breath, Cough Cardiovascular: Reports: Edema. Denies: Chest Pain, Lightheadedness Gastrointestinal: Denies: Abdominal Pain, Nausea, Vomiting Genitourinary: Reports: No Symptoms Musculoskeletal: Reports: Back Pain, Joint Pain Skin: Reports: Other (no pain) Neurological: Reports: Weakness - Patient Data Vitals - Most Recent: Last Vital Signs Temp 97.9 F 12/30/18 03:55 Pulse 96 12/30/18 08:34 Resp 18 12/30/18 03:55 BP 100/60 12/30/18 08:34 Pulse Ox 91 L 12/30/18 03:55 Weight - Most Recent: 320 lb 4.8 oz I&O - Last 24 Hours: Intake & Output 12/29/18 12/30/18 12/30/18 22:59 06:59 14:59 Output Total 50 Balance -50 Lab Results Last 24 Hours: Laboratory Results - last 24 hr 12/29/18 12/29/18 12/30/18 Range/Units 22:06 22:06 00:10 WBC 9.4 (5.0-10.0) 10^3/uL RBC 3.74 L (4.50-6.00) 10^6/uL Hgb 11.8 L (14.0-18.0) g/dL Hct 38.8 L (40.0-54.0) % MCV 103.7 H (82.0-94.0) fL MCH 31.6 (27.0-32.0) pg MCHC 30.4 L (33.0-38.0) g/dL RDW Coeff of Sheron 17.5 H (11.0-15.0) % Plt Count 153 (150-400) 10^3/uL Neut % (Auto) 79.6 (35-85) % Lymph % (Auto) 8.6 L (10-55) % Spencer % (Auto) 9.4 (0-16) % Eos % (Auto) 2.2 (0-5) % Baso % (Auto) 0.2 (0-3) % Neut # (Auto) 7.46 H (1.80-7.00) 10^3/uL Lymph # (Auto) 0.81 L (1.00-4.80) 10^3/uL Spencer # (Auto) 0.88 H (0.00-0.80) 10^3/uL Eos # (Auto) 0.21 (0.00-0.45) 10^3/uL Baso # (Auto) 0.02 10^3/uL Sodium 140 (136-145) mEq/L Potassium 5.3 H (3.5-5.0) mEq/L Chloride 103 (98-106) mEq/L Carbon Dioxide 30 (21-32) mmol/L BUN 55 H (7-18) mg/dL Creatinine 2.2 H (0.7-1.3) mg/dL Est Cr Clr Drug Dosing 25.38 mL/min Estimated GFR (MDRD) 29 L (>=60) mL/min Glucose 241 H D (75-99) mg/dL POC Glucose (75-105) mg/dl Calcium 8.7 (8.4-10.1) mg/dL NT-Pro-B Natriuret Pep (0-1000) pg/mL Urine Color Yellow (YELLOW) Urine Appearance Clear (CLEAR) Urine pH 6.5 (4.5-8.0) Ur Specific Garn[place] 1.015 (1.003-1.020) Urine Protein Negative (NEGATIVE) mg/dL Urine Glucose (UA) Negative (NEGATIVE) mg/dL Urine Ketones Negative (NEGATIVE) mg/dL Urine Occult Blood Small H (NEGATIVE) Urine Nitrite Negative (NEGATIVE) Urine Bilirubin Negative (NEGATIVE) Urine Urobilinogen 0.2 (0.2-1.0) EU/dL Ur Leukocyte Esterase Negative (NEGATIVE) Urine RBC 0-5 (0-5) /HPF Urine WBC Not seen (0-5) /HPF 12/30/18 12/30/18 12/30/18 Range/Units 07:00 07:00 07:43 WBC 7.7 (5.0-10.0) 10^3/uL RBC 3.32 L (4.50-6.00) 10^6/uL Hgb 10.6 L (14.0-18.0) g/dL Hct 34.9 L (40.0-54.0) % MCV 105.1 H (82.0-94.0) fL MCH 31.9 (27.0-32.0) pg MCHC 30.4 L (33.0-38.0) g/dL RDW Coeff of Sheron 17.3 H (11.0-15.0) % Plt Count 146 L (150-400) 10^3/uL Neut % (Auto) 76.5 (35-85) % Lymph % (Auto) 11.1 (10-55) % Spencer % (Auto) 10.3 (0-16) % Eos % (Auto) 1.7 (0-5) % Baso % (Auto) 0.4 (0-3) % Neut # (Auto) 5.89 (1.80-7.00) 10^3/uL Lymph # (Auto) 0.85 L (1.00-4.80) 10^3/uL Spencer # (Auto) 0.79 (0.00-0.80) 10^3/uL Eos # (Auto) 0.13 (0.00-0.45) 10^3/uL Baso # (Auto) 0.03 10^3/uL Sodium 141 (136-145) mEq/L Potassium 4.9 (3.5-5.0) mEq/L Chloride 105 (98-106) mEq/L Carbon Dioxide 32 (21-32) mmol/L BUN 54 H (7-18) mg/dL Creatinine 2.0 H (0.7-1.3) mg/dL Est Cr Clr Drug Dosing 27.91 mL/min Estimated GFR (MDRD) 33 L (>=60) mL/min Glucose 203 H (75-99) mg/dL POC Glucose (75-105) mg/dl Calcium 8.3 L (8.4-10.1) mg/dL NT-Pro-B Natriuret Pep 853 (0-1000) pg/mL Urine Color (YELLOW) Urine Appearance (CLEAR) Urine pH (4.5-8.0) Ur Specific Garnett (1.003-1.020) Urine Protein (NEGATIVE) mg/dL Urine Glucose (UA) (NEGATIVE) mg/dL Urine Ketones (NEGATIVE) mg/dL Urine Occult Blood (NEGATIVE) Urine Nitrite (NEGATIVE) Urine Bilirubin (NEGATIVE) Urine Urobilinogen (0.2-1.0) EU/dL Ur Leukocyte Esterase (NEGATIVE) Urine RBC (0-5) /HPF Urine WBC (0-5) /HPF 12/30/18 Range/Units 08:07 WBC (5.0-10.0) 10^3/uL RBC (4.50-6.00) 10^6/uL Hgb (14.0-18.0) g/dL Hct (40.0-54.0) % MCV (82.0-94.0) fL MCH (27.0-32.0) pg MCHC (33.0-38.0) g/dL RDW Coeff of Sheron (11.0-15.0) % Plt Count (150-400) 10^3/uL Neut % (Auto) (35-85) % Lymph % (Auto) (10-55) % Spencer % (Auto) (0-16) % Eos % (Auto) (0-5) % Baso % (Auto) (0-3) % Neut # (Auto) (1.80-7.00) 10^3/uL Lymph # (Auto) (1.00-4.80) 10^3/uL Spencer # (Auto) (0.00-0.80) 10^3/uL Eos # (Auto) (0.00-0.45) 10^3/uL Baso # (Auto) 10^3/uL Sodium (136-145) mEq/L Potassium (3.5-5.0) mEq/L Chloride (98-106) mEq/L Carbon Dioxide (21-32) mmol/L BUN (7-18) mg/dL Creatinine (0.7-1.3) mg/dL Est Cr Clr Drug Dosing mL/min Estimated GFR (MDRD) (>=60) mL/min Glucose (75-99) mg/dL POC Glucose 182 H (75-105) mg/dl Calcium (8.4-10.1) mg/dL NT-Pro-B Natriuret Pep (0-1000) pg/mL Urine Color (YELLOW) Urine Appearance (CLEAR) Urine pH (4.5-8.0) Ur Specific Garn[place] (1.003-1.020) Urine Protein (NEGATIVE) mg/dL Urine Glucose (UA) (NEGATIVE) mg/dL Urine Ketones (NEGATIVE) mg/dL Urine Occult Blood (NEGATIVE) Urine Nitrite (NEGATIVE) Urine Bilirubin (NEGATIVE) Urine Urobilinogen (0.2-1.0) EU/dL Ur Leukocyte Esterase (NEGATIVE) Urine RBC (0-5) /HPF Urine WBC (0-5) /HPF Med Orders - Current: Current Medications Hydrocodone Bitart/Acetaminophen ([place] 325-5 Mg) 1 - 2 tab PO Q4H PRN PRN Reason: Pain Last Admin: 12/30/18 08:43 Dose: 2 tab Albuterol (Ventolin Hfa) 0 gm INH Q4H PRN PRN Reason: Dyspnea Albuterol/Ipratropium (Duoneb 3.0-0.5 Mg/3 Ml) 3 ml NEB Q4H PRN PRN Reason: Shortness Of Breath/wheezing Albuterol/Ipratropium (Duoneb 3.0-0.5 Mg/3 Ml) 3 ml NEB QIDRT PRN PRN Reason: Shortness of Breath Allopurinol (Zyloprim) 100 mg PO DAILY [facility] Last Admin: 12/30/18 08:34 Dose: 100 mg Amiodarone HCl (Cordarone) 200 mg PO DAILY [facility] Last Admin: 12/30/18 08:35 Dose: 200 mg Aspirin (Ecotrin) 325 mg PO DAILY [facility] Last Admin: 12/30/18 08:34 Dose: 325 mg Calamine/Phenol (Calmoseptine) 1 gm TOP BID [facility] Last Admin: 12/30/18 08:33 Dose: 1 applic Carbidopa/Levodopa (Sinemet 25-100 Mg) 1 tab PO TID [facility] Last Admin: 12/30/18 08:35 Dose: 1 tab Carvedilol (Coreg) 12.5 mg PO BID [facility] Last Admin: 12/30/18 08:34 Dose: 12.5 mg Cholecalciferol (Vitamin D3) 50 mcg PO DAILY [facility] Last Admin: 12/30/18 08:37 Dose: 50 mcg Cyanocobalamin (Vitamin B12) 1,000 mcg PO MoWeFr@0800 [facility] Last Admin: 12/30/18 08:37 Dose: Not Given Docusate Sodium (Colace) 100 mg PO BID [facility] Last Admin: 12/30/18 08:33 Dose: 100 mg Enoxaparin Sodium (Lovenox) 30 mg SUBCUT Q24H [facility] Last Admin: 12/30/18 08:31 Dose: 30 mg Gabapentin (Neurontin) 300 mg PO TID PRN PRN Reason: Nerve pain Insulin Human Lispro (Humalog) 0 unit SUBCUT 0730,1130,1730,2030 [facility]; Protocol Multivitamins/Minerals/Vitamin C (Tab-A-Dre) 1 tab PO DAILY [facility] Last Admin: 12/30/18 08:33 Dose: 1 tab Nystatin (Nystop) 1 gm TOP TID [facility] Last Admin: 12/30/18 08:32 Dose: 1 applic Polyethylene Glycol (Miralax) 17 gm PO DAILY PRN PRN Reason: Constipation Sodium Chloride (Saline Flush) 10 ml FLUSH ASDIRECTED PRN PRN Reason: Keep Vein Open Torsemide (Demadex) 20 mg PO BIDDIURETIC [facility] Last Admin: 12/30/18 08:33 Dose: 20 mg Discontinued Medications Enoxaparin Sodium (Lovenox) 30 mg SUBCUT Q24H [facility] Last Admin: 12/30/18 02:17 Dose: Not Given - Exam General: Alert, Oriented HEENT: Mucous Membr. Moist/[place] Neck: Supple Lungs: Decreased Breath Sounds Cardiovascular: Regular Rate, Regular Rhythm GI/Abdominal Exam: Normal Bowel Sounds, Soft, Non-Tender Extremities: Pedal Edema (2-3+ pitting edema) Skin: Other (has redness to under breasts, abdominal folds and tip of penis consistent with yeast infection) Neurological: No New Focal Deficit - Problem List & Annotations (1) Weakness generalized SNOMED Code(s): 20859646 Code(s): R53.1 - WEAKNESS Status: Acute Priority: High Current Visit: Yes (2) Frequent falls SNOMED Code(s): 601130445 Code(s): R29.6 - REPEATED FALLS Status: Acute Priority: High Current Visit: Yes (3) Physical deconditioning SNOMED Code(s): 32541199766610 Code(s): R53.81 - OTHER MALAISE Status: Acute Priority: High Current Visit: Yes (4) Status post fine needle biopsy SNOMED Code(s): 498494044, 911628949 Code(s): Z98.890 - OTHER SPECIFIED POSTPROCEDURAL STATES Status: Acute Priority: Medium Current Visit: Yes - Problem List Review Problem List Initiated/Reviewed/Updated: Yes - Assessment Assessment:: Weakness Frequent Falls Vulnerable Adult - Plan Plan:: Patient stable today. Admits to "pain all over". Had fine needle biopsy yesterday for a lesion in his back, was doing well for that appointment until returned home. States has been weak since. Was unable to transfer out of car. Took several people to stand him in the ER and his legs buckled even then. Continues to feel weakness in his legs today. Labs noted, creatinine is somewhat improved today at 2.0. Malu did decrease his Torsemide to BID. Has 2-3+ pitting edema in his legs. Admits does not elevate them at home. ProBNP was relatively normal and stable at 853. Discussion held with patient in regards to his ability to care for self at home and is more than can do. Social service consult to discuss discharge plan , possible penitentiary placement. PT to continue for strengthening. Repeat labs in am.
[2018-12-30] MEDS: Insulin Lispro 100 Units/ML 3 ML Vial SUBCUT SCH ×3 (12:14→20:13)
[2018-12-30] MEDS ORDERED: cefTRIAXone 1 GM Vial IVPUSH SCH (18:00)
[2018-12-30] MEDS: Acetaminophen 500 MG Tab PO PRN (22:46)
[2018-12-31] MEDS: Enoxaparin 30 MG/0.3 ML Syringe SUBCUT SCH (07:48)
[2018-12-31] MEDS: Nystatin Topical Powder 15 GM Bottle TOP SCH ×2 (07:49→14:26)
[2018-12-31] MEDS: Menthol/Zinc Oxide Ointment 113 GM Tube TOP SCH (07:49)
[2018-12-31] MEDS: Acetaminophen 500 MG Tab PO PRN (07:50)
[2018-12-31] MEDS: Torsemide 20 MG Tab PO SCH ×2 (07:50→16:25)
[2018-12-31] MEDS: Aspirin 325 MG Tab.EC PO SCH (07:51)
[2018-12-31] MEDS: Cyanocobalamin (Vitamin B12) 1,000 MCG Tab PO SCH (07:51)
[2018-12-31] MEDS: Docusate Sodium 100 MG Cap PO SCH (07:51)
[2018-12-31] MEDS: Allopurinol 100 MG Tab PO SCH (07:52)
[2018-12-31] MEDS: Multivitamin Tab PO SCH (07:52)
[2018-12-31] MEDS: Carbidopa/Levodopa 25-100 MG Tab PO SCH ×2 (07:52→14:26)
[2018-12-31] MEDS: Amiodarone 200 MG Tab PO SCH (07:52)
[2018-12-31] MEDS: Carvedilol 12.5 MG Tab PO SCH (07:52)
[2018-12-31] MEDS: Cholecalciferol (Vitamin D3) 25 MCG Tab PO SCH (07:53)
[2018-12-31] MEDS: Insulin Lispro 100 Units/ML 3 ML Vial SUBCUT SCH ×3 (07:58→17:14)
[2018-12-31] MEDS: Clindamycin Phosphate in D5W 300 MG in Premix Bag 1 BAG IV SCH ×4 (09:20→17:09)
--- NOTE | 2018-12-31 09:23 | PCM.PN ---
- General Info Date of Service: 12/31/18 Admission Dx/Problem (Free Text): Weakness Vulnerable Adult Hypoxia Functional Status: Reports: Pain Controlled, Tolerating Diet. Denies: Ambulating - Review of Systems General: Reports: Weakness, Fatigue HEENT: Denies: Ear Pain, Sinus Congestion, Rhinitis Pulmonary: Reports: Shortness of Breath, Cough, Wheezing Cardiovascular: Reports: Edema. Denies: Chest Pain, Lightheadedness Gastrointestinal: Denies: Abdominal Pain, Nausea, Vomiting Genitourinary: Reports: No Symptoms Musculoskeletal: Reports: Back Pain, Joint Pain Skin: Reports: Bruising Neurological: Reports: Confusion - Patient Data Vitals - Most Recent: Last Vital Signs Temp 98.7 F 12/31/18 04:00 Pulse 64 12/31/18 07:52 Resp 22 H 12/31/18 04:00 BP 140/58 L 12/31/18 07:52 Pulse Ox 97 12/31/18 04:00 Weight - Most Recent: 325 lb 11.2 oz I&O - Last 24 Hours: Intake & Output 12/30/18 12/31/18 12/31/18 22:59 06:59 14:59 Intake Total 400 300 Output Total 100 Balance 300 300 Lab Results Last 24 Hours: Laboratory Results - last 24 hr 12/30/18 12/30/18 12/30/18 Range/Units 11:50 17:41 20:12 WBC (5.0-10.0) 10^3/uL RBC (4.50-6.00) 10^6/uL Hgb (14.0-18.0) g/dL Hct (40.0-54.0) % MCV (82.0-94.0) fL MCH (27.0-32.0) pg MCHC (33.0-38.0) g/dL RDW Coeff of Sheron (11.0-15.0) % Plt Count (150-400) 10^3/uL Neut % (Auto) (35-85) % Lymph % (Auto) (10-55) % [place] % (Auto) (0-16) % Eos % (Auto) (0-5) % Baso % (Auto) (0-3) % Neut # (Auto) (1.80-7.00) 10^3/uL Lymph # (Auto) (1.00-4.80) 10^3/uL Vernon # (Auto) (0.00-0.80) 10^3/uL Eos # (Auto) (0.00-0.45) 10^3/uL Baso # (Auto) 10^3/uL Sodium (136-145) mEq/L Potassium (3.5-5.0) mEq/L Chloride (98-106) mEq/L Carbon Dioxide (21-32) mmol/L BUN (7-18) mg/dL Creatinine (0.7-1.3) mg/dL Est Cr Clr Drug Dosing mL/min Estimated GFR (MDRD) (>=60) mL/min Glucose (75-99) mg/dL POC Glucose 213 H 233 H 231 H (75-105) mg/dl Calcium (8.4-10.1) mg/dL C-Reactive Protein (0.2-0.8) mg/dL 12/31/18 12/31/18 12/31/18 Range/Units 07:00 07:00 07:43 WBC 10.5 H (5.0-10.0) 10^3/uL RBC 3.45 L (4.50-6.00) 10^6/uL Hgb 11.0 L (14.0-18.0) g/dL Hct 36.5 L (40.0-54.0) % MCV 105.8 H (82.0-94.0) fL MCH 31.9 (27.0-32.0) pg MCHC 30.1 L (33.0-38.0) g/dL RDW Coeff of Sheron 17.4 H (11.0-15.0) % Plt Count 140 L (150-400) 10^3/uL Neut % (Auto) 79.9 (35-85) % Lymph % (Auto) 7.9 L (10-55) % Vernon % (Auto) 11.0 (0-16) % Eos % (Auto) 1.0 (0-5) % Baso % (Auto) 0.2 (0-3) % Neut # (Auto) 8.39 H (1.80-7.00) 10^3/uL Lymph # (Auto) 0.83 L (1.00-4.80) 10^3/uL Vernon # (Auto) 1.16 H (0.00-0.80) 10^3/uL Eos # (Auto) 0.11 (0.00-0.45) 10^3/uL Baso # (Auto) 0.02 10^3/uL Sodium 139 (136-145) mEq/L Potassium 5.6 H (3.5-5.0) mEq/L Chloride 102 (98-106) mEq/L Carbon Dioxide 32 (21-32) mmol/L BUN 54 H (7-18) mg/dL Creatinine 2.1 H (0.7-1.3) mg/dL Est Cr Clr Drug Dosing 26.58 mL/min Estimated GFR (MDRD) 31 L (>=60) mL/min Glucose 197 H (75-99) mg/dL POC Glucose 196 H (75-105) mg/dl Calcium 8.9 (8.4-10.1) mg/dL C-Reactive Protein 25.5 H (0.2-0.8) mg/dL Med Orders - Current: Current Medications Acetaminophen (Tylenol Extra Strength) 1,000 mg PO Q12H PRN PRN Reason: Pain Last Admin: 12/31/18 07:50 Dose: 1,000 mg Albuterol (Ventolin Hfa) 0 gm INH Q4H PRN PRN Reason: Dyspnea Albuterol/Ipratropium (Duoneb 3.0-0.5 Mg/3 Ml) 3 ml NEB Q4H PRN PRN Reason: Shortness Of Breath/wheezing Albuterol/Ipratropium (Duoneb 3.0-0.5 Mg/3 Ml) 3 ml NEB QIDRT PRN PRN Reason: Shortness of Breath Allopurinol (Zyloprim) 100 mg PO DAILY [facility] Last Admin: 12/31/18 07:52 Dose: 100 mg Amiodarone HCl (Cordarone) 200 mg PO DAILY [facility] Last Admin: 12/31/18 07:52 Dose: 200 mg Aspirin (Ecotrin) 325 mg PO DAILY [facility] Last Admin: 12/31/18 07:51 Dose: 325 mg Calamine/Phenol (Calmoseptine) 1 gm TOP BID [facility] Last Admin: 12/31/18 07:49 Dose: 1 applic Carbidopa/Levodopa (Sinemet 25-100 Mg) 1 tab PO TID [facility] Last Admin: 12/31/18 07:52 Dose: 1 tab Carvedilol (Coreg) 12.5 mg PO BID [facility] Last Admin: 12/31/18 07:52 Dose: 12.5 mg Cholecalciferol (Vitamin D3) 50 mcg PO DAILY [facility] Last Admin: 12/31/18 07:53 Dose: 50 mcg Cyanocobalamin (Vitamin B12) 1,000 mcg PO MoWeFr@0800 [facility] Last Admin: 12/31/18 07:51 Dose: 1,000 mcg Docusate Sodium (Colace) 100 mg PO BID [facility] Last Admin: 12/31/18 07:51 Dose: 100 mg Enoxaparin Sodium (Lovenox) 30 mg SUBCUT Q24H [facility] Last Admin: 12/31/18 07:48 Dose: 30 mg Gabapentin (Neurontin) 300 mg PO TID PRN PRN Reason: Nerve pain Clindamycin Phosphate 300 mg/ (Premix) 50 mls @ 100 mls/hr IV Q6H [facility] Insulin Human Lispro (Humalog) 0 unit SUBCUT 0730,1130,1730,2030 [facility]; Protocol Last Admin: 12/31/18 07:58 Dose: 2 units Multivitamins/Minerals/Vitamin C (Tab-A-Dre) 1 tab PO DAILY [facility] Last Admin: 12/31/18 07:52 Dose: 1 tab Nystatin (Nystop) 1 gm TOP TID [facility] Last Admin: 12/31/18 07:49 Dose: 1 applic Polyethylene Glycol (Miralax) 17 gm PO DAILY PRN PRN Reason: Constipation Sodium Chloride (Saline Flush) 10 ml FLUSH ASDIRECTED PRN PRN Reason: Keep Vein Open Torsemide (Demadex) 20 mg PO BIDDIURETIC [facility] Last Admin: 12/31/18 07:50 Dose: 20 mg Discontinued Medications Hydrocodone Bitart/Acetaminophen ([place] 325-5 Mg) 1 - 2 tab PO Q4H PRN PRN Reason: Pain Last Admin: 12/30/18 16:01 Dose: 1 tab Ceftriaxone Sodium (Rocephin) 1 gm IVPUSH Q24H [facility] Last Admin: 12/30/18 18:14 Dose: 1 gm Enoxaparin Sodium (Lovenox) 30 mg SUBCUT Q24H [facility] Last Admin: 12/30/18 02:17 Dose: Not Given - Exam Quality Assessment: Supplemental Oxygen General: Alert, Oriented HEENT: Mucous Membr. Moist/[place] Neck: Supple Lungs: Decreased Breath Sounds, Crackles (RLL), Wheezing Cardiovascular: Regular Rate, Regular Rhythm GI/Abdominal Exam: Normal Bowel Sounds, Soft, Non-Tender Extremities: Pedal Edema (1+- improved) Skin: Warm, Dry Neurological: No New Focal Deficit - Problem List & Annotations (1) Weakness generalized SNOMED Code(s): 37399540 Code(s): R53.1 - WEAKNESS Status: Acute Priority: High Current Visit: Yes (2) Frequent falls SNOMED Code(s): 475594222 Code(s): R29.6 - REPEATED FALLS Status: Acute Priority: High Current Visit: Yes (3) Physical deconditioning SNOMED Code(s): 12807539162250 Code(s): R53.81 - OTHER MALAISE Status: Acute Priority: High Current Visit: Yes (4) Status post fine needle biopsy SNOMED Code(s): 321715898, 094685139 Code(s): Z98.890 - OTHER SPECIFIED POSTPROCEDURAL STATES Status: Acute Priority: Medium Current Visit: Yes (5) Altered mental status SNOMED Code(s): 929542892 Code(s): R41.82 - ALTERED MENTAL STATUS, UNSPECIFIED Status: Acute Priority: High Current Visit: Yes Qualifiers: Altered mental status type: transient alteration of awareness Qualified Code(s): R40.4 - Transient alteration of awareness (6) Aspiration pneumonia SNOMED Code(s): 343197735 Code(s): J69.0 - PNEUMONITIS DUE TO INHALATION OF FOOD AND VOMIT Status: Acute Priority: High Current Visit: Yes Qualifiers: Laterality: right Lung location: lower lobe of lung - Problem List Review Problem List Initiated/Reviewed/Updated: Yes - My Orders Last 24 Hours: My Active Orders 12/31/18 09:15 Clindamycin Phosphate in D5W [Cleocin in D5W] 300 mg Premix Bag 1 bag IV Q6H - Assessment Assessment:: Weakness Frequent Falls Vulnerable Adult - Plan Plan:: Patient stable today. Admits to "pain all over". Had fine needle biopsy yesterday for a lesion in his back, was doing well for that appointment until returned home. States has been weak since. Was unable to transfer out of car. Took several people to stand him in the ER and his legs buckled even then. Continues to feel weakness in his legs today. Labs noted, creatinine is somewhat improved today at 2.0. Malu did decrease his Torsemide to BID. Has 2-3+ pitting edema in his legs. Admits does not elevate them at home. ProBNP was relatively normal and stable at 853. Discussion held with patient in regards to his ability to care for self at home and is more than can do. Social service consult to discuss discharge plan , possible shelter placement. PT to continue for strengthening. Repeat labs in am. 12-31-2018 Patient drowsy this am, did eat 100% of breakfast. Had episode yesterday afternoon, was tremulous and confused. CT scan of his head was done, negative. Chest more congested at that time so concerns with aspiration, Rocephin was added per Malu Lay. Did question if stupor/confusion was related to narcotics as well. Labs this am do show increase in CRP to 25.5, WBC 10.5. Creatinine is 2.1, stable. Edema is much improved since admission, down to 1+ today from being in bed. Will switch patient to Cleocin. Did discuss discharge plan with patient, likely will need shelter as unable to care for self. Difficult for staff here to transfer patient as bears minimal weight on his legs. Repeat labs in am.
[2018-12-31] MEDS ORDERED: Albuterol/Ipratropium 3.0-0.5 MG/3 ML Neb Soln NEB SCH (16:00)
[2018-12-31] MEDS ORDERED: Furosemide 40 MG/4 ML VIAL IVPUSH ONE (18:04)
--- NOTE | 2018-12-31 20:16 | PCM.DCSUM1 ---
Discharge Summary - Hospital Course Free Text/Narrative:: Patient presented to ER on Saturday with increased weakness. Had been to [facility] to have a fine needle biopsy for a thoracic lesion. Procedure went well. Once returned home, was weak, unable to get in to house and his legs buckled. EMS was called. Labs in ER essentially negative. Was admitted due to weakness, vulnerable adult and inability to care for self. PT ordered. Social service consult for potential placement. Diagnosis: Stroke: No Modified Marcio Scale: No Symptoms at All Modified Moniteau Scale Score: 0 - Discharge Data Discharge Date: 12/31/18 Discharge Disposition: DC/Tfer to Acute Hospital 02 Condition: Undetermined - Discharge Diagnosis/Problem(s) (1) Weakness generalized SNOMED Code(s): 69503213 ICD Code: R53.1 - WEAKNESS Status: Acute Priority: High Current Visit: Yes (2) Frequent falls SNOMED Code(s): 272999356 ICD Code: R29.6 - REPEATED FALLS Status: Acute Priority: High Current Visit: Yes (3) Physical deconditioning SNOMED Code(s): 68910347319468 ICD Code: R53.81 - OTHER MALAISE Status: Acute Priority: High Current Visit: Yes (4) Status post fine needle biopsy SNOMED Code(s): 195626514, 447684482 ICD Code: Z98.890 - OTHER SPECIFIED POSTPROCEDURAL STATES Status: Acute Priority: Medium Current Visit: Yes (5) Altered mental status SNOMED Code(s): 568948382 ICD Code: R41.82 - ALTERED MENTAL STATUS, UNSPECIFIED Status: Acute Priority: High Current Visit: Yes Qualifiers: Altered mental status type: transient alteration of awareness Qualified Code(s): R40.4 - Transient alteration of awareness (6) Aspiration pneumonia SNOMED Code(s): 156715820 ICD Code: J69.0 - PNEUMONITIS DUE TO INHALATION OF FOOD AND VOMIT Status: Acute Priority: High Current Visit: Yes Qualifiers: Laterality: right Lung location: lower lobe of lung - Patient Summary/Data Complications: none Consults: Consultations 12/30/18 00:51 Consult to Case Management/Miter Sawyer [CONS] Routine PT Evaluation and Treatment [CONS] Routine Hospital Course: Patient stable on day 1 after admit, was feeding self breakfast yesterday morning. In the afternoon, was noted to be restless with increased confusion. CT scan of the head was done, was negative for acute changes. Dilley to potentially be related to narcotics. Due to crackles noted in lungs, wheezing was started on Rocephin. Repeat labs this am showed CRP up to 25.5, WBC 10.4. Switched to Cleocin due to concerns related to potential aspiration due to lying on stomach on Saturday for procedure. Was alert this am, feeding self. Called back to hospital this evening. Noted more respiratory distress. Oxygen sat had dropped to 89% on 5 liters. Lung sounds wet. Repeat labs done, chest xray done. Given IV Lasix 40 mg. Chest xray notes more venous congestion than on admit. ProBNP on Saturday was 853, now 3470. CRP has increased from 25 to 39.9. WBC up to 11.6. Did void twice and catheter placed. Discussed status with and daughter. Do want to continue with full code status. Advised that due to change in condition may require more intensive care than able to provide here. [facility] contacted in regards to patient. Spoke with ER physician, Dr. Constantino, who agreed to accept the patient in transfer. Family agrees to plan. Patient has improved by time of transfer, oxygen sats improving. - Patient Instructions Other/Special Instructions: Transfer to [facility] ER - Discharge Plan *PRESCRIPTION DRUG MONITORING PROGRAM REVIEWED*: Not Applicable *COPY OF PRESCRIPTION DRUG MONITORING REPORT IN PATIENT OWEN: Not Applicable Home Medications: Home Meds Cyanocobalamin (Vitamin B-12) [Vitamin B-12] 1,000 mcg PO ASDIRECTED 08/23/13 [ History] Albuterol [Ventolin HFA] 2 puff INH Q4H PRN 09/22/13 [History] Gabapentin 300 mg PO TID PRN 09/22/13 [History] Amiodarone [Cordarone] 200 mg PO DAILY 09/16/15 [History] Multivitamin [Daily Multiple Vitamin] 1 tab PO DAILY 09/16/15 [History] Aspirin [Ecotrin EC] 325 mg PO DAILY 07/05/16 [History] Carvedilol 12.5 mg PO BID 07/05/16 [History] Cholecalciferol (Vitamin D3) [Vitamin D3] 2,000 unit PO DAILY 07/05/16 [History] Cinnamon Bark [Cinnamon] 500 mg PO ASDIRECTED 07/05/16 [History] Hydrocodone/Acetaminophen [Hydrocodon-Acetaminophen 5-325] 1 each PO Q6H PRN 02/10 [History] Lisinopril 10 mg PO DAILY 07/05/16 [History] Torsemide [Demadex] 20 mg PO TID 07/05/16 [History] Albuterol/Ipratropium [DuoNeb 3.0-0.5 MG/3 ML] 3 ml NEB QIDRT PRN #120 neb 07/22 [Rx] Insulin NPH/Insulin Reg,Human [NovoLIN 70-30] 10 - 50 unit SQ QID PRN 05/30/17 [ History] Vitamin A Palmitate [Vitamin A] 2,400 unit PO DAILY 05/30/17 [History] Docusate Sodium [Colace] 100 mg PO BID 11/12/17 [History] Allopurinol [Zyloprim] 100 mg PO DAILY 12/29/18 [History] Carbidopa/Levodopa [Carbidopa-Levo 25-100 MG ODT] 1 tab PO TID 12/29/18 [History ] Polyethylene Glycol 3350 [MiraLAX] 17 gm PO DAILY PRN 12/29/18 [History] Oxygen Therapy Mode: Nasal Cannula Forms: ED Department Discharge Referrals: Malu [facility] [Primary Care Provider] - - Discharge Summary/Plan Comment DC Time >30 min.: Yes Discharge Summary/Plan Comment: Transfer ALS to [facility] - General Info Date of Service: 12/31/18 Admission Dx/Problem (Free Text: Weakness Vulnerable Adult Hypoxia Functional Status: Reports: Tolerating Diet. Denies: Pain Controlled, Ambulating - Review of Systems General: Reports: Fever, Weakness, Fatigue HEENT: Reports: No Symptoms Pulmonary: Reports: Shortness of Breath, Cough, Wheezing Cardiovascular: Reports: Edema. Denies: Chest Pain, Lightheadedness Gastrointestinal: Denies: Abdominal Pain, Nausea, Vomiting Genitourinary: Reports: No Symptoms Musculoskeletal: Reports: Back Pain Skin: Reports: No Symptoms Neurological: Reports: Weakness Psychiatric: Reports: No Symptoms - Patient Data Vitals - Most Recent: Last Vital Signs Temp 98.7 F 12/31/18 04:00 Pulse 64 12/31/18 07:52 Resp 22 H 12/31/18 04:00 BP 140/58 L 12/31/18 07:52 Pulse Ox 97 12/31/18 04:00 Weight - Most Recent: 325 lb 11.2 oz I&O - Last 24 hours: Intake & Output 12/31/18 12/31/18 12/31/18 06:59 14:59 22:59 Intake Total 300 50 Balance 300 50 Lab Results - Last 24 hrs: Laboratory Results - last 24 hr 12/30/18 12/31/18 12/31/18 Range/Units 20:12 07:00 07:00 WBC 10.5 H (5.0-10.0) 10^3/uL RBC 3.45 L (4.50-6.00) 10^6/uL Hgb 11.0 L (14.0-18.0) g/dL Hct 36.5 L (40.0-54.0) % MCV 105.8 H (82.0-94.0) fL MCH 31.9 (27.0-32.0) pg MCHC 30.1 L (33.0-38.0) g/dL RDW Coeff of Sheron 17.4 H (11.0-15.0) % Plt Count 140 L (150-400) 10^3/uL Neut % (Auto) 79.9 (35-85) % Lymph % (Auto) 7.9 L (10-55) % [place] % (Auto) 11.0 (0-16) % Eos % (Auto) 1.0 (0-5) % Baso % (Auto) 0.2 (0-3) % Neut # (Auto) 8.39 H (1.80-7.00) 10^3/uL Lymph # (Auto) 0.83 L (1.00-4.80) 10^3/uL [place] # (Auto) 1.16 H (0.00-0.80) 10^3/uL Eos # (Auto) 0.11 (0.00-0.45) 10^3/uL Baso # (Auto) 0.02 10^3/uL Sodium 139 (136-145) mEq/L Potassium 5.6 H (3.5-5.0) mEq/L Chloride 102 (98-106) mEq/L Carbon Dioxide 32 (21-32) mmol/L BUN 54 H (7-18) mg/dL Creatinine 2.1 H (0.7-1.3) mg/dL Est Cr Clr Drug Dosing 26.58 mL/min Estimated GFR (MDRD) 31 L (>=60) mL/min Glucose 197 H (75-99) mg/dL POC Glucose 231 H (75-105) mg/dl Calcium 8.9 (8.4-10.1) mg/dL C-Reactive Protein 25.5 H (0.2-0.8) mg/dL NT-Pro-B Natriuret Pep (0-1000) pg/mL 12/31/18 12/31/18 12/31/18 Range/Units 07:43 11:41 18:05 WBC 11.6 H (5.0-10.0) 10^3/uL RBC 3.46 L (4.50-6.00) 10^6/uL Hgb 11.3 L (14.0-18.0) g/dL Hct 36.0 L (40.0-54.0) % MCV 104.0 H (82.0-94.0) fL MCH 32.7 H (27.0-32.0) pg MCHC 31.4 L (33.0-38.0) g/dL RDW Coeff of Sheron 17.1 H (11.0-15.0) % Plt Count 143 L (150-400) 10^3/uL Neut % (Auto) 88.3 H (35-85) % Lymph % (Auto) 4.3 L (10-55) % [place] % (Auto) 7.1 (0-16) % Eos % (Auto) 0.1 (0-5) % Baso % (Auto) 0.2 (0-3) % Neut # (Auto) 10.28 H (1.80-7.00) 10^3/uL Lymph # (Auto) 0.50 L (1.00-4.80) 10^3/uL [place] # (Auto) 0.82 H (0.00-0.80) 10^3/uL Eos # (Auto) 0.01 (0.00-0.45) 10^3/uL Baso # (Auto) 0.02 10^3/uL Sodium (136-145) mEq/L Potassium (3.5-5.0) mEq/L Chloride (98-106) mEq/L Carbon Dioxide (21-32) mmol/L BUN (7-18) mg/dL Creatinine (0.7-1.3) mg/dL Est Cr Clr Drug Dosing mL/min Estimated GFR (MDRD) (>=60) mL/min Glucose (75-99) mg/dL POC Glucose 196 H 237 H (75-105) mg/dl Calcium (8.4-10.1) mg/dL C-Reactive Protein (0.2-0.8) mg/dL NT-Pro-B Natriuret Pep (0-1000) pg/mL 12/31/18 Range/Units 18:05 WBC (5.0-10.0) 10^3/uL RBC (4.50-6.00) 10^6/uL Hgb (14.0-18.0) g/dL Hct (40.0-54.0) % MCV (82.0-94.0) fL MCH (27.0-32.0) pg MCHC (33.0-38.0) g/dL RDW Coeff of Sheron (11.0-15.0) % Plt Count (150-400) 10^3/uL Neut % (Auto) (35-85) % Lymph % (Auto) (10-55) % [place] % (Auto) (0-16) % Eos % (Auto) (0-5) % Baso % (Auto) (0-3) % Neut # (Auto) (1.80-7.00) 10^3/uL Lymph # (Auto) (1.00-4.80) 10^3/uL [place] # (Auto) (0.00-0.80) 10^3/uL Eos # (Auto) (0.00-0.45) 10^3/uL Baso # (Auto) 10^3/uL Sodium 137 (136-145) mEq/L Potassium 5.6 H (3.5-5.0) mEq/L Chloride 102 (98-106) mEq/L Carbon Dioxide 32 (21-32) mmol/L BUN 51 H (7-18) mg/dL Creatinine 2.0 H (0.7-1.3) mg/dL Est Cr Clr Drug Dosing 27.91 mL/min Estimated GFR (MDRD) 33 L (>=60) mL/min Glucose 389 H* D (75-99) mg/dL POC Glucose (75-105) mg/dl Calcium 9.2 (8.4-10.1) mg/dL C-Reactive Protein 39.9 H (0.2-0.8) mg/dL NT-Pro-B Natriuret Pep 3470 H (0-1000) pg/mL Med Orders - Current: Current Medications Acetaminophen (Tylenol Extra Strength) 1,000 mg PO Q12H PRN PRN Reason: Pain Last Admin: 12/31/18 07:50 Dose: 1,000 mg Albuterol (Ventolin Hfa) 0 gm INH Q4H PRN PRN Reason: Dyspnea Albuterol/Ipratropium (Duoneb 3.0-0.5 Mg/3 Ml) 3 ml NEB Q4H PRN PRN Reason: Shortness Of Breath/wheezing Last Admin: 12/31/18 16:29 Dose: 3 ml Albuterol/Ipratropium (Duoneb 3.0-0.5 Mg/3 Ml) 3 ml NEB QIDRT PRN PRN Reason: Shortness of Breath Allopurinol (Zyloprim) 100 mg PO DAILY [facility] Last Admin: 12/31/18 07:52 Dose: 100 mg Amiodarone HCl (Cordarone) 200 mg PO DAILY [facility] Last Admin: 12/31/18 07:52 Dose: 200 mg Aspirin (Ecotrin) 325 mg PO DAILY [facility] Last Admin: 12/31/18 07:51 Dose: 325 mg Calamine/Phenol (Calmoseptine) 1 gm TOP BID [facility] Last Admin: 12/31/18 07:49 Dose: 1 applic Carbidopa/Levodopa (Sinemet 25-100 Mg) 1 tab PO TID [facility] Last Admin: 12/31/18 14:26 Dose: 1 tab Carvedilol (Coreg) 12.5 mg PO BID [facility] Last Admin: 12/31/18 07:52 Dose: 12.5 mg Cholecalciferol (Vitamin D3) 50 mcg PO DAILY [facility] Last Admin: 12/31/18 07:53 Dose: 50 mcg Cyanocobalamin (Vitamin B12) 1,000 mcg PO MoWeFr@0800 [facility] Last Admin: 12/31/18 07:51 Dose: 1,000 mcg Docusate Sodium (Colace) 100 mg PO BID [facility] Last Admin: 12/31/18 07:51 Dose: 100 mg Enoxaparin Sodium (Lovenox) 30 mg SUBCUT Q24H [facility] Last Admin: 12/31/18 07:48 Dose: 30 mg Gabapentin (Neurontin) 300 mg PO TID PRN PRN Reason: Nerve pain Clindamycin Phosphate 300 mg/ (Premix) 50 mls @ 100 mls/hr IV Q6H [facility] Last Admin: 12/31/18 17:09 Dose: 100 mls/hr Insulin Human Lispro (Humalog) 0 unit SUBCUT 0730,1130,1730,2030 [facility]; Protocol Last Admin: 12/31/18 17:14 Dose: 8 units Multivitamins/Minerals/Vitamin C (Tab-A-Dre) 1 tab PO DAILY [facility] Last Admin: 12/31/18 07:52 Dose: 1 tab Nystatin (Nystop) 1 gm TOP TID [facility] Last Admin: 12/31/18 14:26 Dose: 1 applic Polyethylene Glycol (Miralax) 17 gm PO DAILY PRN PRN Reason: Constipation Sodium Chloride (Saline Flush) 10 ml FLUSH ASDIRECTED PRN PRN Reason: Keep Vein Open Torsemide (Demadex) 20 mg PO BIDDIURETIC [facility] Last Admin: 12/31/18 16:25 Dose: 20 mg Discontinued Medications Hydrocodone Bitart/Acetaminophen ([place] 325-5 Mg) 1 - 2 tab PO Q4H PRN PRN Reason: Pain Last Admin: 12/30/18 16:01 Dose: 1 tab Albuterol/Ipratropium (Duoneb 3.0-0.5 Mg/3 Ml) 3 ml NEB QIDRT [facility] Ceftriaxone Sodium (Rocephin) 1 gm IVPUSH Q24H [facility] Last Admin: 12/30/18 18:14 Dose: 1 gm Enoxaparin Sodium (Lovenox) 30 mg SUBCUT Q24H [facility] Last Admin: 12/30/18 02:17 Dose: Not Given Furosemide (Lasix) 40 mg IVPUSH ONETIME ONE Stop: 12/31/18 18:05 Last Admin: 12/31/18 18:05 Dose: 40 mg - Exam Quality Assessment: Reports: Supplemental Oxygen General: Reports: Moderate Distress HEENT: Reports: Mucous Membr. Moist/Dante Neck: Reports: Supple Lungs: Reports: Decreased Breath Sounds, Rales Cardiovascular: Reports: Regular Rate, Regular Rhythm GI/Abdominal Exam: Normal Bowel Sounds, Soft, Non-Tender Extremities: Normal Inspection, Pedal Edema (1+) Skin: Reports: Warm, Dry
[2018-12-31 20:46] VITALS: BP 153/32; PULSE 66
== END 2018-12-31 20:00 | DRG 178 ==
LOC: CC.ED 22:21 → CC.MS 23:42 → UNDOADMIN 23:58 → CC.MS 23:58 → UNDOADMIN 12-30 00:06 → CC.MS 12-30 00:06
PROVIDERS: ADMIT Nurse Practitioner Family; ATTEND Family Medicine
DX: J69.0 Pneumonitis due to inhalation of food and vomit (principal); I42.9 Cardiomyopathy, unspecified; Z68.43 Body mass index [BMI] 50.0-59.9, adult; I13.0 Hypertensive heart and chronic kidney disease with heart failure and stage 1 through stage 4 chronic kidney disease, or unspecified chronic kidney disease; R53.1 Weakness; E11.9 Type 2 diabetes mellitus without complications; E66.01 Morbid (severe) obesity due to excess calories; R53.81 Other malaise; R41.82 Altered mental status, unspecified; W19.XXXA Unspecified fall, initial encounter; R29.6 Repeated falls; R09.02 Hypoxemia; Z98.890 Other specified postprocedural states; M10.9 Gout, unspecified; E11.22 Type 2 diabetes mellitus with diabetic chronic kidney disease; N18.3 Chronic kidney disease, stage 3 (moderate); I87.8 Other specified disorders of veins; L89.302 Pressure ulcer of unspecified buttock, stage 2; I50.9 Heart failure, unspecified; G47.30 Sleep apnea, unspecified; M19.90 Unspecified osteoarthritis, unspecified site; G89.29 Other chronic pain; M54.9 Dorsalgia, unspecified; Z90.49 Acquired absence of other specified parts of digestive tract; M1A.9XX0 Chronic gout, unspecified, without tophus (tophi); E11.42 Type 2 diabetes mellitus with diabetic polyneuropathy; E55.9 Vitamin D deficiency, unspecified; Z85.46 Personal history of malignant neoplasm of prostate; Z95.0 Presence of cardiac pacemaker; Z90.89 Acquired absence of other organs; G47.00 Insomnia, unspecified; Z96.659 Presence of unspecified artificial knee joint; Z87.891 Personal history of nicotine dependence; Z88.8 Allergy status to other drugs, medicaments and biological substances; Z79.82 Long term (current) use of aspirin; Z79.4 Long term (current) use of insulin; Z79.899 Other long term (current) drug therapy
CPT/HCPCS: 36415; 51702; 70450; 71045; 80048; 81001; 82962; 83880; 85025; 86140; 94640; 97110-GP; 97162-GP; 99285; A9270-GY; J0696; J1650; J1815; J1940; J3490; J7620-GY